=== PATIENT | male | born 1945 | race Caucasian/White ===

== ENCOUNTER → 2018-03-08 | Outpatient (CLI) | payer MEDICARE ==
[~2018-03-08] MED LIST: ALBUTEROL SULF8.5 GM INH; AMBIEN5 MG PO; AMLODIPINE BESY10 MG PO; ATORVASTATIN CA20 MG PO; BACLOFEN10 MG PO; BUMETANIDE2 MG PO; BUPROPION HCL150 MG PO; CARVEDILOL3.125 MG PO; CITALOPRAM HBR20 MG PO; COUMADIN5 MG PO; DEPO-TESTOS100 MG/ML; FENOFIBRATE145 MG PO; FLOMAX0.4 MG PO; GABAPENTIN100 MG PO; GABAPENTIN300 MG PO; HUMALOG100 UNIT/1 SC; HUMALOG100 UNITS/ SQ; HYDROCODON-ACE1 EAC9 PO; KEFLEX500 MG PO; LANTUS100 UNITS/ SC; LANTUS100 UNITS/ SQ; LASIX20 MG PO; LEVAQUIN500 MG PO; LOVASTATIN20 MG PO; METFORMIN HCL500 MG PO; MORPHINE SULFAT30 M2 PO; NEURONTIN100 MG PO; NITROGLYCERIN0.4 MG SL; ROPINIROLE HCL1 MG PO; SIMVASTATIN40 MG PO; TIZANIDINE HCL4 MG PO; TRAZODONE HCL50 MG PO; TRICOR145 MG PO; TYLENOL # 31 EA; WARFARIN SODIUM1 MG PO; WARFARIN SODIUM3 MG PO; XANAX0.25 MG PO; XARELTO10 MG PO; [UNRECOGNIZED DRUG - REMARK]
== END ==
LOC: RAD 12:31
PROVIDERS: ATTEND Family Medicine
DX: R60.9 Edema, unspecified (principal)
CPT/HCPCS: 93971

== ENCOUNTER 2019-09-18 10:43 | Inpatient (IN) | payer MEDICARE, OTHER ==
[2019-09-17] MEDS: ALBUTEROL/IPRATROPIUM 3 ML NEB NEB SCH (23:55)
[~2019-09-18] VITALS: Ht 172.7 cm; Wt 96.2 kg
--- NOTE | 2019-09-18 11:35 | NUR ---
Unable to verify home medications with patient.
[2019-09-18 11:40] LABS: BASOPHILS % 0.5 % (0.0-1.0); EOSINOPHILS # (AUTO) 0.3 (0.0-0.4); EOSINOPHILS % 4.2 % (0.0-6.0); HEMATOCRIT 40.3 % (38.2-49.6); HEMOGLOBIN 13.3 g/dL (14.0-18.0); LYMPHOCYTES # (AUTO) 1.3 (1.0-3.2); MEAN CORPUSCULAR HEMOGLOBIN 27.9 pg (28-32); MEAN CORPUSCULAR VOLUME 84.7 fL (81-99); MONOCYTES # (AUTO) 0.5 (0.2-0.8); NEUTROPHILS # (AUTO) 5.4 (2.1-6.9); NEUTROPHILS % 71.6 % (38.7-80.0); PLATELET COUNT 270 x10e3/uL (140-360); RED BLOOD COUNT 4.76 x10e6/uL (4.3-5.7); RED CELL DISTRIBUTION WIDTH 14.5 % (11.7-14.4)
[2019-09-18 11:49] LABS: ALANINE AMINOTRANSFERASE 23 IU/L (0-55); ALBUMIN 3.5 g/dL (3.5-5.0); ALBUMIN/GLOBULIN RATIO 0.9 (0.8-2.0); ALKALINE PHOSPHATASE 49 IU/L (40-150); BLOOD UREA NITROGEN 19 mg/dL (7-26); BUN/CREATININE RATIO 17 (6-25); CALCIUM 9.5 mg/dL (8.4-10.2); CARBON DIOXIDE 28 mmol/L (22-29); CHLORIDE 106 mmol/L (98-107); CREATININE, SERUM 1.11 mg/dL (0.72-1.25); EST GLOMERULAR FILTRATION RATE > 60 ML/MIN (60-); GLUCOSE 68 mg/dL (74-118); SODIUM 141 mmol/L (136-145)
[2019-09-18] MEDS ORDERED: METHYLPREDNISOLONE SOD SUCC 125 MG/2ML VIAL IV ONE (12:00)
[2019-09-18] MEDS ORDERED: ALBUTEROL/IPRATROPIUM 3 ML NEB NEB ONE (12:00)
--- NOTE | 2019-09-18 12:00 | NUR ---
blood gluocse 68 peripheral stick. ER MD aware, gave patient orange juice.
--- NOTE | 2019-09-18 12:08 | Diagnostic Imaging Report ---
Chest, 1 view, 09/18/2019. History: Chest pain and shortness of breath. Comparison: 09/11/2016. Findings: The cardiomediastinal silhouette and pulmonary vasculature are within normal limits for a portable exam. There is no focal consolidation or pleural effusion. Median sternotomy wires and left subclavian pacer are unchanged in appearance. There are no acute osseous or soft tissue abnormalities. Impression: No acute cardiopulmonary abnormality. Signed by: Wing Ashley on 09/18/2019 12:05 PM
--- NOTE | 2019-09-18 12:44 | NUR ---
repeat glucose 118.
[2019-09-18] MEDS ORDERED: SODIUM CHLORIDE FLUSH 10 ML SYR INJ PRN (13:15)
[2019-09-18] MEDS ORDERED: ASPIRIN 81 MG CHEW TAB PO ONE (13:15)
--- OUTSIDE RECORDS SUMMARY | 2019-09-18 13:22 | XMS REPORT ---
Author Author [facility] Address Unknown Phone Unavailable Care Team Providers Care Short Story Writer Name Role Phone Fabian PHILLIPS Unavailable Unavailable Problems This patient has no known problems. Allergies, Adverse Reactions, Alerts This patient has no known allergies or adverse reactions. Medications This patient has no known medications. Results Test Description Test Time Test Comments Text Results Atomic Results Result Comments CHEST SINGLE (PORTABLE) 2019-09-18 12:04:00 [place] [address] Patient Name: MARIA LUISA NAVA V MR #: [id number] : 1945 Age/Sex: 74/M Req #: [id number] Adm Physician: Ordered by: THERESE PHILLIPS MD Report #: [id number] Location: ER Room/Bed: Procedure: [id number] DX/CHEST SINGLE (PORTABLE) Exam Date: 09/18/19 Exam Time: 1149 REPORT STATUS: Signed Chest, 1 view, 09/18/2019. History: Chest pain and shortness of breath. Comparison: 09/11/2016. Findings: The cardiomediastinal silhouette and pulmonary vasculature are within normal limits for a portable exam. There is no focal consolidation or pleural effusion. Median sternotomy wires and left subclavian pacer are unchanged in appearance. There are no acute osseous or soft tissue abnormalities. Impression: No acute cardiopulmonary abnormality. Signed by: Maria Luisa Ashley on 09/18/2019 12:05 PM Dictated By: MARIA LUISA ASHLEY MD 04 Transcribed By: JUANJO on 09/18/191204 COPY TO: THERESE PHILLIPS MD
[2019-09-18] MEDS: ALBUTEROL/IPRATROPIUM 3 ML NEB NEB SCH ×2 (14:20→18:55)
--- NOTE | 2019-09-18 15:18 | NUR ---
PATIENT RECEIVED FROM ER PER STRETCHER. ALERT AND VERBALLY RESPONSIVE. ABLE TO TRANSFER SELF FROM STRETCHER TO BED. DENIED PAIN AT THIS TIME. SKIN WARM AND DRY TO TOUCH, RESPIRATION EVEN AND UNLABORED WITH O2 IN PLACE VIA N/C. ORIENTED TO SURROUNDINGS. BED IN LOWER POSITION, CALL LIGHT AT REACH. INSTRUCTED TO CALL FOR ASSISTANCE NEEDED.
[2019-09-18 15:20] VITALS: BP 171/72
[2019-09-18 15:46] VITALS: BP 171/72
[2019-09-18] MEDS ORDERED: ACETAMINOPHEN 325 MG TAB PO PRN (18:00)
[2019-09-18] MEDS ORDERED: DEXTROSE 50% SYRINGE 50 ML IV PRN (18:45)
--- NOTE | 2019-09-18 19:00 | NUR ---
Patient received awake, alert, lying quietly in bed. respirations even and unlabored. 02/2l/nc in bed. no c/o pain noted at this time. pm assessment complete. patient instructed to call for assistance when needed.
[2019-09-18 19:28] LABS: CREATINE KINASE MB 1.6 ng/mL (0-5.0)
--- NOTE | 2019-09-18 19:47 | History and Physical ---
CHIEF COMPLAINT: A 74-year-old gentleman with a history of 2-3 weeks of shortness of breath, chest pain, dizziness and heaviness in the chest. HISTORY OF PRESENT ILLNESS: Mr. Wing Pompa has a history of uncontrolled diabetes mellitus, history of coronary artery disease, history of atrial fibrillation, history of chronic pain syndrome, history of hypertension and depression, who was in usual state of health until about three weeks ago. The patient started to have shortness of breath and also congestion and wheezing. The patient did go to a local urgent care clinic, antibiotics were given. The patient did not feel better, came to the clinic, saw our nurse practitioner about one week prior to this admission. The patient was given IV antibiotics, Solu-Medrol treatment and also breathing treatments. The patient came back today with the same mono productive cough, this time with some congestion and also with some left-sided chest pain and pressure. The patient was given DuoNeb in the clinic and sent here. EKG was done in the clinic and did show some left ventricular hypertrophy with some idioventricular rhythm with this in mind, the patient was sent to the emergency room and was admitted to the hospital. Troponins were negative. Initially, treatments were given. The patient did have some audible wheezes and patient admitted for COPD exacerbation and CAD and history of coronary artery bypass. PAST MEDICAL HISTORY: History of hyperlipidemia, history of congestive heart failure, history of hypertension, history of depression, history of long-term use of insulin, history of chronic pain and history of insomnia. MEDICATIONS: He takes are albuterol sulfate q.6 hours as needed, atorvastatin 20 mg at nighttime, Bumex 2 mg once a day, propranolol 150 mg daily, carvedilol 3.125 mg twice a day, citalopram 40 mg daily, fenofibrate 145 mg daily, hydrocodone 10/325 q.6 hours, glargine 35 units twice a day, levofloxacin 500 mg daily was recently started, Xarelto 15 mg daily, Tizanidine 4 mg daily and Trazodone 100 mg at night times. PAST SURGICAL HISTORY: History of CABG, history of left hip surgery. SOCIAL HISTORY: No EtOH, no drug abuse. History of smoking in the past. ALLERGIES: NO DRUG ALLERGIES NOTED. FAMILY HISTORY: History of hypertension and COPD in the family. REVIEW OF SYSTEMS: Positive for chest pain. Positive for shortness of breath. Positive for some fatigue. No nausea, no vomiting. No diarrhea. No constipation. No rectal bleeding. No hematochezia. No hematemesis. Positive for leg cramps. PHYSICAL EXAMINATION: VITAL SIGNS: Temperature is 97.1, pulse of 62, respirations of 22, blood pressure is 171/72 with a mean of 105, pulse oximetry of 92%. The patient is on 2 L of oxygen with nasal cannula. HEENT: Normocephalic, atraumatic. The patient is slightly tachypneic at this time. CVS: S1 and S2. Tachy, irregular. LUNGS: Decreased air entry with positive for bilateral wheezing. ABDOMEN: Soft, nontender. SKIN: Normal. EXTREMITIES: No clubbing, no cyanosis, no edema. NEUROLOGIC: Alert and oriented x3. No motor deficit. Positive for sensory deficit in the lower extremities. LABORATORY VALUES: EKG shows a rate of 61, junctional rhythm, prolonged QT and also LVH by criteria. Chest x-ray shows no acute cardiopulmonary disorders. No infiltrates and no pneumothorax present. CBC showed a white count of 7.53, hemoglobin 13.3. Chemistry shows sodium of 141, potassium 4.0, BUN of 19, and creatinine of 1.11. ALT and AST normal. BNP was 157. Troponin was negative 0.022 initially ASSESSMENT: 1. Chronic obstructive pulmonary disease exacerbation. 2. Chronic congestive heart failure. 3. Coronary artery disease. 4. Hyperlipidemia. 5. Chest pain. 6. Hypoxia. 7. History of smoking. 8. Uncontrolled diabetes mellitus. 9. Chronic mild bronchitis with failed outpatient treatment. PLAN: Continue to monitor the patient. Solu-Medrol will be started at 40 mg twice a day at this time, a loading dose 125 has been given. Stricter control of blood sugars will be obtained by restarting his home medication and stricter insulin sliding scale. We will monitor his p.o. intake. DVT prophylaxis with SCDs and also Lovenox 40 mg subcu daily. We will continue his home medication. Further recommendation per clinical course. We will continue monitoring his troponin and an echocardiogram would also be done. Jarvis Carrera MD ASJ/MODL /[id number]
[2019-09-18 20:00] VITALS: BP 164/73
[2019-09-18] MEDS: HYDROCODONE/APAP 10MG-325MG TAB PO SCH (20:16)
[2019-09-18] MEDS: TRAZODONE HCL 50 MG TAB PO SCH (20:16)
[2019-09-18] MEDS: ATORVASTATIN 40 MG TAB PO SCH (20:16)
[2019-09-18] MEDS: TIZANIDINE HCL 4 MG TAB PO SCH (20:16)
[2019-09-18] MEDS ORDERED: INSULIN LISPRO 100 UNIT/1 ML 3ML VIAL SQ SCH (20:30)
[2019-09-18] MEDS: INSULIN GLARGINE 100 UNITS/ML VIAL SQ SCH (20:35)
[2019-09-18] MEDS: INSULIN LISPRO 100 UNIT/1 ML 3ML VIAL SQ SCH (20:35)
--- NOTE | 2019-09-18 20:35 | NUR ---
wrong time----2034 Addendum: 09/19/19 at 0032 by Antonia Macedo RN error
[2019-09-18] MEDS ORDERED: ATORVASTATIN 20 MG TAB PO SCH (21:00)
[2019-09-18 21:17] VITALS: BP 164/73
--- NOTE | 2019-09-18 21:41 | NUR ---
blood sugar recheck 387.
--- NOTE | 2019-09-18 23:35 | NUR ---
blood sugar 538. call placed to Dr.John shaffer: blood sugar/sliding scale. patient medicated with humalog 12 units per sliding scale with an extra 8 units humalog. lantus 35 units sc also given at this time. will continue to to monitor. Addendum: 09/19/19 at 0033 by Antonia Macedo RN error--wrong time---2034
--- NOTE | 2019-09-18 23:53 | NUR ---
blood sugar 262.
[2019-09-19] VITALS (8 sets, daily range): BP systolic 116–167; BP diastolic 56–72
[2019-09-19] MEDS: MORPHINE SULFATE 2 MG/ML SYR 1ML IV PRN ×4 (03:10→22:55)
--- NOTE | 2019-09-19 03:10 | NUR ---
patient medicated with morphine 2mg ivp for c/o generalized pain 12/03 per patients request. 2nd cardiac markers drawn at this time and sent to lab.
[2019-09-19] MEDS: ALBUTEROL/IPRATROPIUM 3 ML NEB NEB SCH ×6 (03:40→23:30)
[2019-09-19 03:50] LABS: CREATINE KINASE MB 1.2 ng/mL (0-5.0)
[2019-09-19 05:42] LABS: BASOPHILS % 0.1 % (0.0-1.0); HEMATOCRIT 35.1 % (38.2-49.6); HEMOGLOBIN 11.5 g/dL (14.0-18.0); LYMPHOCYTES # (AUTO) 0.9 (1.0-3.2); LYMPHOCYTES % 10.6 % (18.0-39.1); MEAN CORPUSCULAR HEMOGLOBIN 27.6 pg (28-32); MEAN CORPUSCULAR HGB CONC 32.8 g/dL (31-35); MEAN CORPUSCULAR VOLUME 84.2 fL (81-99); MONOCYTES # (AUTO) 0.4 (0.2-0.8); NEUTROPHILS # (AUTO) 7.4 (2.1-6.9); NEUTROPHILS % 84.6 % (38.7-80.0); PLATELET COUNT 222 x10e3/uL (140-360); RED BLOOD COUNT 4.17 x10e6/uL (4.3-5.7)
[2019-09-19 06:03] LABS: ANION GAP 10.5 mmol/L (8-16); BLOOD UREA NITROGEN 28 mg/dL (7-26); BUN/CREATININE RATIO 24 (6-25); CALCIUM 8.6 mg/dL (8.4-10.2); CARBON DIOXIDE 24 mmol/L (22-29); CHLORIDE 104 mmol/L (98-107); CREATININE, SERUM 1.17 mg/dL (0.72-1.25); EST GLOMERULAR FILTRATION RATE > 60 ML/MIN (60-); GLUCOSE 320 mg/dL (74-118); POTASSIUM 4.5 mmol/L (3.5-5.1); SODIUM 134 mmol/L (136-145)
--- NOTE | 2019-09-19 06:09 | Diagnostic Imaging Report ---
EXAMINATION: CHEST SINGLE (PORTABLE) INDICATION: ^SOB ^[id number] ^0510 COMPARISON: Chest x-ray 09/18/2019 FINDINGS: TUBES and LINES: Left chest wall cardiac device with lead in the right ventricle. LUNGS: Normal lung volumes. Prominent pulmonary interstitial lung markings. Prominent pulmonary vasculature. PLEURA: No pleural effusion or pneumothorax. HEART AND MEDIASTINUM: Cardiac size is mildly enlarged. BONES AND SOFT TISSUES: No acute osseous lesion. Soft tissues are unremarkable. Sternotomy wires intact. UPPER ABDOMEN: No free air under the diaphragm. IMPRESSION: Mild cardiomegaly and pulmonary vascular congestion, possible mild pulmonary interstitial edema. Superimposed pneumonia is possible. Signed by: Ge Toribio DO on 09/19/2019 6:05 AM
[2019-09-19 06:32] LABS: CREATINE KINASE MB 1.3 ng/mL (0-5.0)
--- NOTE | 2019-09-19 06:40 | NUR ---
Bedside shift report received from night nurse. Patient is resting in bed. No acute distress noted. Call light within reach.
[2019-09-19 06:45] LABS: CHOL/HDL RATIO 3.5 (3.9-4.7)
[2019-09-19] MEDS: CITALOPRAM HYDROBROMIDE 20 MG TAB PO SCH (08:20)
[2019-09-19] MEDS: ASPIRIN 81 MG ENTERIC COATED PO SCH (08:20)
[2019-09-19] MEDS: CARVEDILOL 3.125 MG TAB PO SCH ×2 (08:20→16:48)
[2019-09-19] MEDS: BUMETANIDE 1 MG TAB PO SCH ×2 (08:20→16:47)
[2019-09-19] MEDS: HYDROCODONE/APAP 10MG-325MG TAB PO SCH ×3 (08:21→21:00)
[2019-09-19] MEDS: BACLOFEN 10 MG TAB PO SCH ×2 (08:21→16:48)
[2019-09-19] MEDS: FENOFIBRATE 145 MG TAB PO SCH (08:22)
[2019-09-19] MEDS: BUPROPION HCL SR 150 MG TAB PO SCH (08:22)
[2019-09-19] MEDS: RIVAROXABAN 20 MG TABLET PO SCH (08:22)
[2019-09-19] MEDS: INSULIN LISPRO 100 UNIT/1 ML 3ML VIAL SQ SCH ×4 (08:22→12:03)
[2019-09-19] MEDS: TIZANIDINE HCL 4 MG TAB PO SCH ×3 (08:22→21:00)
[2019-09-19] MEDS ORDERED: NON-FORMULARY MEDICATION (Bumetanide 2 MG) PO SCH (09:00)
[2019-09-19] MEDS ORDERED: RIVAROXABAN 10 MG TABLET PO SCH (09:00)
--- NOTE | 2019-09-19 11:05 | NUR ---
ASSESSMENT: No concerns Pt didn't express spiritual or emotional concerns. Intervention: Provided hospitality and information on how to reach watershed tender, if needed. Outcome: No need to follow at this time. RMEI MCKEON Hydrological Technical Officer Spiritual Care Department O: [phone]
--- NOTE | 2019-09-19 14:40 | Progress Note ---
DATE: SUBJECTIVE: A 74-year-old male, who came in with COPD exacerbation, chest pain, and shortness of breath. The patient is feeling little bit better. Sugars have been running in the 200s to 300 range. Sliding scale has been instituted and also the patient's glargine has been increased. Currently, feeling short of breath, but much better than yesterday. Albuterol/Atrovent treatments every 4 hours has been instituted. No complaints other than that. OBJECTIVE: VITAL SIGNS: Temperature is 98.4, pulse 60, respirations 16 which got better, blood pressure is 119/66, and pulse oximetry of 98%. Tachypnea got better. HEENT: Normocephalic and atraumatic. Pupils are reactive to light and accommodation. CVS: S1 and S2, tachycardic. ABDOMEN: Nontender and nondistended. Decreased air entry into all lung ybarra. EXTREMITIES: No clubbing. No cyanosis. Trace edema. LABORATORY VALUES: White count is 8.70, hemoglobin of 11.5, and hematocrit 35.1. Chemistry shows sodium of 134, potassium 4.5, BUN of 28, creatinine of 1.17, and glucose is 320. LDL was 67. Troponins have been less than 0.004. IMAGING STUDIES: Chest x-ray done today, showed mild cardiomegaly and pulmonary vascular congestion. Possible mild pulmonary interstitial edema, superimposed pneumonia is possible. ASSESSMENT: Mr. Wing Pompa with: 1. Chronic obstructive pulmonary disease exacerbation. 2. Coronary artery disease. 3. Hypoglycemia. 4. Chest pain, ruled out. PLAN: Continue with IV Solu-Medrol, albuterol/Atrovent treatment, and currently also on Xarelto for his atrial fibrillation. Further recommendation per clinical course. DISPOSITION: Possible discharge in 1 to 2 days depending on the progression and betterment of shortness of breath. MD CHIKA Cervantes/MODL /[id number]
--- NOTE | 2019-09-19 15:05 | NUR ---
Notified Dr. Carrera of patient's BG of 24 and administered 50 mL of Dextrose. Per MD, discontinue sliding scale and decrease scheduled humalog to 10 units with meals starting tomorrow morning. Will continue to monitor.
--- NOTE | 2019-09-19 15:20 | NUR ---
Re-assessed BG and is 218 now, will continue to monitor.
[2019-09-19] MEDS: INSULIN GLARGINE 100 UNITS/ML VIAL SQ SCH (16:48)
--- NOTE | 2019-09-19 18:50 | NUR ---
Bedside shift report given to oncoming nurse. Patient is resting in bed. No acute distress noted at this time. Call light within reach. Bed in the lowest position.
--- NOTE | 2019-09-19 19:00 | NUR ---
patient received awake, alert, lying quietly in bed. no c/o pain noted. pm assessment complete. patient instructed to call for assistance when needed.
[2019-09-19] MEDS: TRAZODONE HCL 50 MG TAB PO SCH (21:00)
[2019-09-19] MEDS: ATORVASTATIN 40 MG TAB PO SCH (21:00)
[2019-09-20] VITALS (7 sets, daily range): BP systolic 107–149; BP diastolic 51–73
[2019-09-20] MEDS: ALBUTEROL/IPRATROPIUM 3 ML NEB NEB SCH ×6 (03:30→23:05)
[2019-09-20] MEDS: MORPHINE SULFATE 2 MG/ML SYR 1ML IV PRN ×3 (05:05→17:00)
[2019-09-20 05:30] LABS: BASOPHILS % 0.3 % (0.0-1.0); EOSINOPHILS # (AUTO) 0.3 (0.0-0.4); EOSINOPHILS % 3.4 % (0.0-6.0); HEMATOCRIT 38.3 % (38.2-49.6); HEMOGLOBIN 12.7 g/dL (14.0-18.0); LYMPHOCYTES # (AUTO) 1.7 (1.0-3.2); LYMPHOCYTES % 23.3 % (18.0-39.1); MEAN CORPUSCULAR HEMOGLOBIN 27.8 pg (28-32); MEAN CORPUSCULAR HGB CONC 33.2 g/dL (31-35); MEAN CORPUSCULAR VOLUME 83.8 fL (81-99); MONOCYTES # (AUTO) 0.5 (0.2-0.8); MONOCYTES % 6.4 % (4.4-11.3); NEUTROPHILS # (AUTO) 4.8 (2.1-6.9); NEUTROPHILS % 66.2 % (38.7-80.0); PLATELET COUNT 254 x10e3/uL (140-360); RED BLOOD COUNT 4.57 x10e6/uL (4.3-5.7); RED CELL DISTRIBUTION WIDTH 14.2 % (11.7-14.4)
[2019-09-20 05:51] LABS: ANION GAP 12.9 mmol/L (8-16); CALCIUM 8.7 mg/dL (8.4-10.2); CREATININE, SERUM 1.28 mg/dL (0.72-1.25); POTASSIUM 3.9 mmol/L (3.5-5.1)
--- NOTE | 2019-09-20 07:00 | NUR ---
The pt. was received from the off-going nurse in stable condition and denies pain or discomfort at this time.
[2019-09-20] MEDS: HYDROCODONE/APAP 10MG-325MG TAB PO SCH ×3 (08:59→20:13)
[2019-09-20] MEDS: CARVEDILOL 3.125 MG TAB PO SCH ×2 (08:59→17:00)
[2019-09-20] MEDS: FENOFIBRATE 145 MG TAB PO SCH (08:59)
[2019-09-20] MEDS: BACLOFEN 10 MG TAB PO SCH ×2 (08:59→17:00)
[2019-09-20] MEDS: CITALOPRAM HYDROBROMIDE 20 MG TAB PO SCH (08:59)
[2019-09-20] MEDS: BUMETANIDE 1 MG TAB PO SCH ×2 (08:59→17:00)
[2019-09-20] MEDS: ASPIRIN 81 MG ENTERIC COATED PO SCH (08:59)
[2019-09-20] MEDS: RIVAROXABAN 20 MG TABLET PO SCH (09:00)
[2019-09-20] MEDS: BUPROPION HCL SR 150 MG TAB PO SCH (09:00)
[2019-09-20] MEDS: TIZANIDINE HCL 4 MG TAB PO SCH ×3 (09:00→20:14)
[2019-09-20] MEDS: INSULIN LISPRO 100 UNIT/1 ML 3ML VIAL SQ SCH ×3 (09:04→16:30)
[2019-09-20] MEDS: INSULIN GLARGINE 100 UNITS/ML VIAL SQ SCH ×2 (09:05→17:00)
--- NOTE | 2019-09-20 11:46 | NUR ---
IMM SIGNED AND ON CHART COPY LEFT WITH PATIENT GAVE CARD FOR QUESTIONS AND OR CONCERNS.
--- NOTE | 2019-09-20 18:50 | Progress Note ---
DATE: SUBJECTIVE: The patient is a 74-year-old male with a history of COPD, came in with COPD exacerbation. The patient is still short of breath, hypoxic when walking to the bathroom short distances and needs oxygen while walking. No chest pain. With some congestion and also productive sputum. No nausea, vomiting, or diarrhea. No chest pain at this time. OBJECTIVE: VITAL SIGNS: Temperature is 96.6, pulse of 60, respirations of 20, blood pressure is 120/56, and pulse oximetry of 95% on 2 liters of oxygen. HEENT: Normocephalic and atraumatic. Pupils reactive to light and accommodation. CVS: S1 and S2 normal. Regular rate and rhythm. ABDOMEN: Nontender and nondistended. LUNGS: Decreased air entry, audible wheezes. EXTREMITIES: No clubbing, no cyanosis, and no edema. LABORATORY VALUES: White count 7.31, hemoglobin of 12.7, and hematocrit of 38.8. Chemistries, BUN of 32 and creatinine of 1.28. ASSESSMENT: Mr. Wing Pompa with: 1. Chronic obstructive pulmonary disease exacerbation. 2. Coronary artery disease. 3. Chest pain. 4. Hypoglycemia. 5. Hypoxia. 6. Acute on chronic renal failure. PLAN: Continue with IV Solu-Medrol, albuterol/Atrovent treatment. We will add Mucomyst to the profile. Continue with current management. Further recommendation per clinical course. We will continue to monitor the patient and pain management with morphine and [place]. Disposition, discharge plan in 1-2 days depending on progression. MD CHIKA Cervantes/MODL /[id number]
[2019-09-20] MEDS: ACETYLCYSTEINE 200 MG/ML 4ML VIAL INH SCH (19:20)
--- NOTE | 2019-09-20 20:00 | NUR ---
Received change of shift report from AM nurse. Walking rounds completed.
[2019-09-20] MEDS: ATORVASTATIN 40 MG TAB PO SCH (20:13)
[2019-09-20] MEDS: TRAZODONE HCL 50 MG TAB PO SCH (20:13)
--- NOTE | 2019-09-20 22:03 | NUR ---
[facility] med[facility]. for pain =6 gen. Continue monitor.
[2019-09-21] VITALS (8 sets, daily range): BP systolic 114–164; BP diastolic 58–77
[2019-09-21] MEDS: ALBUTEROL/IPRATROPIUM 3 ML NEB NEB SCH ×6 (03:10→23:45)
[2019-09-21] MEDS: ACETYLCYSTEINE 200 MG/ML 4ML VIAL INH SCH ×4 (06:15→20:55)
[2019-09-21] MEDS: MORPHINE SULFATE 2 MG/ML SYR 1ML IV PRN ×3 (06:21→20:01)
--- NOTE | 2019-09-21 07:51 | Progress Note ---
DATE: SUBJECTIVE: A 74-year-old gentleman, who comes in with COPD exacerbation. The patient continues to still have pain on ambulation in the chest and also shortness of breath on exertion. The patient continues to have some nausea, otherwise doing well. The patient's blood sugars had one drop, currently stable. No diarrhea. No constipation. OBJECTIVE: VITAL SIGNS: 96.4 of temperature, pulse of 63, respirations of 18, blood pressure is 115/61, and 95% on 2 L of oxygen. HEENT: Normocephalic and atraumatic. Pupils reactive to light and accommodation. CVS: S1 and S2 normal. Regular rate and rhythm. LUNGS: Decreased air entry with multiple rhonchi and wheezes present. ABDOMEN: Nontender and nondistended. EXTREMITIES: No clubbing, no cyanosis, no edema. LABORATORY VALUES: From yesterday, white count is normal. Chemistries were normal too. Creatinine is 1.28. IMAGING STUDIES: Chest x-ray done on the showed mild cardiomegaly with possible superimposed pneumonia. ASSESSMENT: Mr. Wing Pompa with chronic obstructive pulmonary disease exacerbation. The patient is currently still on the steroids, which will keep him on steroids, morphine sulfate for pain medication. For hypertension, hyperlipidemia, and his atrial fibrillation, continue with anticoagulation, statins and also blood pressure medication. PLAN: Continue with current medication, add doxycycline to the picture and restart steroids at 20 mg and we will continue to monitor the patient. Further recommendation per clinical course. Possible discharge in 1 to 2 days depending on his oxygen and also O2 home supplementation will be ordered for if needed. MD CHIKA Cervantes/MODL /[id number]
--- NOTE | 2019-09-21 09:11 | Diagnostic Imaging Report ---
EXAMINATION: CHEST 2 VIEWS INDICATION: ^copd ^[id number] ^0820 COMPARISON: 09/18/2019 FINDINGS: PA and lateral views TUBES and LINES: Stable single lead pacemaker overlying the right ventricle. LUNGS: Lungs are well inflated. Improved central pulmonary vascular congestion. Bibasilar atelectasis, unchanged. No new consolidations. PLEURA: Trace bilateral pleural effusions. No pneumothorax. HEART AND MEDIASTINUM: Stable mild enlargement of the cardiac silhouette. BONES AND SOFT TISSUES: Intact median sternotomy wires. No acute osseous lesion. Soft tissues are unremarkable. UPPER ABDOMEN: No free air under the diaphragm. IMPRESSION: Improved central pulmonary vascular congestion. No new consolidations. Signed by: Dr. Mita Calvert M.D. on 09/21/2019 9:07 AM
[2019-09-21] MEDS: METHYLPREDNISOLONE SOD SUCC 40 MG/ML VIAL 1ML IV SCH ×2 (09:20→20:02)
[2019-09-21] MEDS: CITALOPRAM HYDROBROMIDE 20 MG TAB PO SCH (09:20)
[2019-09-21] MEDS: ASPIRIN 81 MG ENTERIC COATED PO SCH (09:20)
[2019-09-21] MEDS: BUMETANIDE 1 MG TAB PO SCH ×2 (09:20→17:39)
[2019-09-21] MEDS: BACLOFEN 10 MG TAB PO SCH ×2 (09:21→17:40)
[2019-09-21] MEDS: CARVEDILOL 3.125 MG TAB PO SCH ×2 (09:21→17:40)
[2019-09-21] MEDS: HYDROCODONE/APAP 10MG-325MG TAB PO SCH ×3 (09:21→22:00)
[2019-09-21] MEDS: TIZANIDINE HCL 4 MG TAB PO SCH ×3 (09:22→20:02)
[2019-09-21] MEDS: RIVAROXABAN 20 MG TABLET PO SCH (09:22)
[2019-09-21] MEDS: FENOFIBRATE 145 MG TAB PO SCH (09:22)
[2019-09-21] MEDS: BUPROPION HCL SR 150 MG TAB PO SCH (09:22)
[2019-09-21] MEDS: INSULIN GLARGINE 100 UNITS/ML VIAL SQ SCH ×2 (09:26→17:00)
[2019-09-21] MEDS: INSULIN LISPRO 100 UNIT/1 ML 3ML VIAL SQ SCH ×3 (09:29→16:30)
[2019-09-21] MEDS: DOXYCYCLINE HYCLATE 100 MG in SODIUM CHLORIDE 0.9% 100 ML 100 ML IV SCH (11:00)
[2019-09-21] MEDS ORDERED: SODIUM CHLORIDE 0.9% 250ML 250 ML ONE (11:11)
--- NOTE | 2019-09-21 19:54 | NUR ---
Received change of shift report from AM nurse. Walking rounds completed.
[2019-09-21] MEDS: TRAZODONE HCL 50 MG TAB PO SCH (20:02)
[2019-09-21] MEDS: ATORVASTATIN 40 MG TAB PO SCH (20:02)
[2019-09-22] VITALS (7 sets, daily range): BP systolic 117–184; BP diastolic 59–77
[2019-09-22] MEDS: ALBUTEROL/IPRATROPIUM 3 ML NEB NEB SCH ×6 (04:10→22:55)
[2019-09-22 05:55] LABS: BASOPHILS % 0.1 % (0.0-1.0); HEMOGLOBIN 12.8 g/dL (14.0-18.0); LYMPHOCYTES % 10.7 % (18.0-39.1); MEAN CORPUSCULAR HEMOGLOBIN 27.9 pg (28-32); MEAN CORPUSCULAR HGB CONC 33.7 g/dL (31-35); MEAN CORPUSCULAR VOLUME 82.8 fL (81-99); MONOCYTES # (AUTO) 0.3 (0.2-0.8); MONOCYTES % 2.8 % (4.4-11.3); NEUTROPHILS # (AUTO) 7.9 (2.1-6.9); NEUTROPHILS % 85.1 % (38.7-80.0); PLATELET COUNT 249 x10e3/uL (140-360); RED BLOOD COUNT 4.59 x10e6/uL (4.3-5.7); RED CELL DISTRIBUTION WIDTH 14.3 % (11.7-14.4)
[2019-09-22 06:15] LABS: ANION GAP 13.5 mmol/L (8-16); CALCIUM 9.3 mg/dL (8.4-10.2); CREATININE, SERUM 1.66 mg/dL (0.72-1.25); POTASSIUM 4.5 mmol/L (3.5-5.1)
[2019-09-22] MEDS: ACETYLCYSTEINE 200 MG/ML 4ML VIAL INH SCH ×4 (06:36→19:20)
[2019-09-22] MEDS: MORPHINE SULFATE 2 MG/ML SYR 1ML IV PRN ×3 (07:48→20:20)
[2019-09-22] MEDS: DOXYCYCLINE HYCLATE 100 MG in SODIUM CHLORIDE 0.9% 100 ML 100 ML IV SCH (08:13)
[2019-09-22] MEDS: BUMETANIDE 1 MG TAB PO SCH ×2 (08:13→16:56)
[2019-09-22] MEDS: METHYLPREDNISOLONE SOD SUCC 40 MG/ML VIAL 1ML IV SCH ×2 (08:13→20:31)
[2019-09-22] MEDS: ASPIRIN 81 MG ENTERIC COATED PO SCH (08:13)
[2019-09-22] MEDS: CITALOPRAM HYDROBROMIDE 20 MG TAB PO SCH (08:14)
[2019-09-22] MEDS: FENOFIBRATE 145 MG TAB PO SCH (08:14)
[2019-09-22] MEDS: BUPROPION HCL SR 150 MG TAB PO SCH (08:14)
[2019-09-22] MEDS: CARVEDILOL 3.125 MG TAB PO SCH ×2 (08:14→16:56)
[2019-09-22] MEDS: BACLOFEN 10 MG TAB PO SCH ×2 (08:14→16:56)
[2019-09-22] MEDS: RIVAROXABAN 20 MG TABLET PO SCH (08:14)
[2019-09-22] MEDS: INSULIN GLARGINE 100 UNITS/ML VIAL SQ SCH ×2 (08:15→16:57)
[2019-09-22] MEDS: INSULIN LISPRO 100 UNIT/1 ML 3ML VIAL SQ SCH ×3 (08:15→16:55)
[2019-09-22] MEDS: TIZANIDINE HCL 4 MG TAB PO SCH ×3 (08:15→21:55)
--- NOTE | 2019-09-22 08:29 | Progress Note ---
DATE: SUBJECTIVE: The patient is a 74-year-old male, who comes in with COPD exacerbation yesterday. The patient was started back on steroids and also IV antibiotics, still about the same, cough and congested, short of breath on exertion and also walking to the bathroom. On O2 for chronic acute hypoxia. OBJECTIVE: VITAL SIGNS: Temperature is 96.9, afebrile, pulse of 96, respirations of 20, blood pressure is 150/68, pulse oximetry of 97%. HEENT: Normocephalic and atraumatic. Pupils are reactive. CVS: S1 and S2, tachy. ABDOMEN: Nontender, nondistended. LUNGS: Positive for bilateral congestion with rhonchi. EXTREMITIES: Trace edema. LABORATORY VALUES: Today's white count is 9.29, hemoglobin of 12.8, hematocrit of 38. Chemistries; glucose is 428, BUN is 48, creatinine of 1.66. IMAGING STUDIES: Chest x-ray done yesterday shows improved central pulmonary venous congestion. No new consolidation. ASSESSMENT: Mr. Wing Pompa with: 1. Chronic obstructive pulmonary disease with exacerbation. Plan will be continue on steroids and continue antibiotics. 2. Hypertension. Continue antihypertensive. 3. Hyperlipidemia, on statin. 4. Chronic hypoxia. Continue on O2. We will maintain his O2 at 1 to 2 L. We will monitor him for home O2. 5. For his chronic obstructive pulmonary disease, we will continue with steroids and antibiotics. Further recommendations look in the chart. 6. For diabetes, we will continue with the sliding scale and also with insulin. MD CHIKA Cervantes/MODL /[id number]
[2019-09-22] MEDS: HYDROCODONE/APAP 10MG-325MG TAB PO SCH ×3 (10:00→21:55)
--- NOTE | 2019-09-22 16:00 | NUR ---
Notified Dr. Carrera of elevated BS and received orders to start humalog 20 units TID with meals only while pt is getting steroids.
--- NOTE | 2019-09-22 20:05 | NUR ---
Notified Dr Carrera regarding FSBS 418. Patient received humalog 20 units and lantus 35 units at 1655. New order for Humalog 5 units subq x1.
[2019-09-22] MEDS ORDERED: INSULIN LISPRO 100 UNIT/1 ML 3ML VIAL SQ ONE (20:15)
[2019-09-22] MEDS: TRAZODONE HCL 50 MG TAB PO SCH (20:31)
[2019-09-22] MEDS: ATORVASTATIN 40 MG TAB PO SCH (20:31)
[2019-09-23] VITALS (8 sets, daily range): BP systolic 113–152; BP diastolic 57–69
[2019-09-23] MEDS: MORPHINE SULFATE 2 MG/ML SYR 1ML IV PRN ×4 (02:40→23:30)
[2019-09-23] MEDS: ALBUTEROL/IPRATROPIUM 3 ML NEB NEB SCH ×6 (03:07→23:30)
--- NOTE | 2019-09-23 06:41 | NUR ---
Dr Carrera on unit, New orders for home 02 eval, follow up on echo. Once both complete patient will be okay to discharge.
--- NOTE | 2019-09-23 07:00 | NUR ---
Received bedside shift report from off going nurse. Patient is stable, no distress noted. Complained of back pain 12/03 scheduled [place] was given @ 0900. Tele # [address] Bed in lowest position and locked. Call gonzalez within reach.
--- NOTE | 2019-09-23 07:32 | NUR ---
Bedside report and rounding completed with oncoming nurse. Patient in bed with call light within reach. Bed locked and in lowest position. No issues or concerns noted.
--- NOTE | 2019-09-23 07:38 | Progress Note ---
DATE: SUBJECTIVE: The patient is a 74-year-old gentleman with a history of COPD, history of coronary artery disease and history of uncontrolled diabetes, continues to have shortness of breath on walking to and fro from the bathroom. Today, we will do a home O2 protocol. The patient also has significant congestion despite steroids and also Mucomyst. Medicines reviewed. OBJECTIVE: VITAL SIGNS: Temperature is 95.6, pulse of 60, respirations of 18, blood pressure is 113/62, pulse oximetry of 99% on 2 L of oxygen. HEENT: Normocephalic and atraumatic. Pupils are reactive to light and accommodation. CVS: S1 and S2 normal. Regular rate and rhythm. ABDOMEN: Nontender and nondistended. LUNGS: Positive for rhonchi bilaterally. EXTREMITIES: No edema. The patient is on anticoagulation for his atrial fibrillation. LABORATORY VALUES: Yesterday's white count is 9.9. Chemistry, glucose is 428 yesterday with a BUN of 48 and creatinine of 1.66. ASSESSMENT: Mr. Wing Pompa with: 1. Chronic obstructive pulmonary disease exacerbation. 2. Hypertension. 3. Coronary artery disease. 4. Hyperlipidemia. 5. Hypoglycemia. 6. Hypoxia and chronic respiratory distress. PLAN: Continue with current medications. The patient is clinically improved a bit, can be discharged home on oral steroids and also on home O2 if needed. Echocardiogram was ordered on the , for some reason it was canceled. We will go and reorder it just to ascertain his cardiac functions. Further recommendation per clinical course and also depending on the home O2 eval and also echocardiogram eval. Possible discharge today or tomorrow. MD CHIKA Cervantes/ADAIRL /[id number]
[2019-09-23] MEDS: ACETYLCYSTEINE 200 MG/ML 4ML VIAL INH SCH ×4 (08:00→19:20)
[2019-09-23] MEDS: CITALOPRAM HYDROBROMIDE 20 MG TAB PO SCH (09:08)
[2019-09-23] MEDS: BUMETANIDE 1 MG TAB PO SCH ×2 (09:08→17:20)
[2019-09-23] MEDS: METHYLPREDNISOLONE SOD SUCC 40 MG/ML VIAL 1ML IV SCH ×2 (09:08→21:18)
[2019-09-23] MEDS: ASPIRIN 81 MG ENTERIC COATED PO SCH (09:08)
[2019-09-23] MEDS: RIVAROXABAN 20 MG TABLET PO SCH (09:09)
[2019-09-23] MEDS: FENOFIBRATE 145 MG TAB PO SCH (09:09)
[2019-09-23] MEDS: CARVEDILOL 3.125 MG TAB PO SCH ×2 (09:09→17:28)
[2019-09-23] MEDS: BACLOFEN 10 MG TAB PO SCH ×2 (09:09→17:28)
[2019-09-23] MEDS: HYDROCODONE/APAP 10MG-325MG TAB PO SCH ×3 (09:09→21:18)
[2019-09-23] MEDS: BUPROPION HCL SR 150 MG TAB PO SCH (09:09)
[2019-09-23] MEDS: TIZANIDINE HCL 4 MG TAB PO SCH ×3 (09:10→21:18)
[2019-09-23] MEDS: INSULIN LISPRO 100 UNIT/1 ML 3ML VIAL SQ SCH ×3 (09:11→17:16)
[2019-09-23] MEDS: INSULIN GLARGINE 100 UNITS/ML VIAL SQ SCH ×2 (09:12→17:29)
[2019-09-23] MEDS: DOXYCYCLINE HYCLATE 100 MG in SODIUM CHLORIDE 0.9% 100 ML 100 ML IV SCH (11:07)
--- NOTE | 2019-09-23 19:27 | NUR ---
Bedside report and rounding completed with oncoming nurse. Patient in stable condition, no s/s of distress noted. Patient in bed with call light within reach. Bed locked and in lowest position. No issues or concerns noted.
--- NOTE | 2019-09-23 20:00 | NUR ---
Spoke with Dr Carrera regarding echo complete and results given for EF and patient did not qualify for home sat 93%. Will see patient in morning for discharge.
--- NOTE | 2019-09-23 20:34 | NUR ---
Spoke with Dr Carrera regarding FSBS 312. New order: give humalog 8 units sub Q x1. Will continue to monitor.
[2019-09-23] MEDS ORDERED: INSULIN LISPRO 100 UNIT/1 ML 3ML VIAL SQ SCH (20:45)
[2019-09-23] MEDS: TRAZODONE HCL 50 MG TAB PO SCH (21:18)
[2019-09-23] MEDS: ATORVASTATIN 40 MG TAB PO SCH (21:18)
[2019-09-24] VITALS: BP 122/57
[2019-09-24] MEDS: ALBUTEROL/IPRATROPIUM 3 ML NEB NEB SCH ×2 (03:15→07:49)
[2019-09-24 04:00] VITALS: BP 159/70
--- NOTE | 2019-09-24 06:54 | Progress Note ---
DATE: SUBJECTIVE: The patient is a 74-year-old male, who came with COPD with exacerbation. The patient also has history of CHF, CKD, and history of uncontrolled diabetes mellitus. The patient is currently feeling better. Had a home evaluation for O2. The patient did not need oxygen. Physical therapy has been ongoing and the patient is doing well. Shortness of breath is better. The patient can be discharged home today. OBJECTIVE: VITAL SIGNS: Today, temperature is 96.6, pulse of 73, respirations of 18, blood pressure is 159/70, pulse oximetry of 94% on 2 L of oxygen. HEENT: Normocephalic and atraumatic. Pupils are reactive to light and accommodation. CVS: S1 and S2. Regular. ABDOMEN: Nontender and nondistended. LUNGS: Positive for few inspiratory wheezes, but much better. EXTREMITIES: No clubbing, no cyanosis, no edema. LABORATORY DATA: Chemistries, blood sugars are running in 300s because of the steroid. IMAGING STUDIES: Done on the , chest x-ray did not show pneumonia, slight congestion and changes of mild CHF. MICROBIOLOGY: None done. ASSESSMENT: Mr. Wing Pompa with, 1. Chronic obstructive pulmonary disease exacerbation. 2. Hypertension. 3. Coronary artery disease. 4. Hyperlipidemia. 5. Hyperglycemia. 6. Hypoxia with chronic respiratory failure. PLAN: Continue current medication. The patient can be discharged home on doxycycline 100 mg twice a day for 5 days and also steroids for 5 days. Echocardiogram was normal. EF was 56%. The patient has also chronic diastolic dysfunction. No O2 needed. The patient can be discharged and follow up with me in about one weeks time. MD CHIKA Cervantes/MODL /[id number]
--- NOTE | 2019-09-24 07:00 | NUR ---
Received bedside shift report from off going nurse. Patient is stable, no sign or symptoms of distress noted. Complained of back pain 12/03 will given scheduled [place]. Tele # [address] Bed in lowest position and locked. Call gonzalez within reach.
[2019-09-24 07:40] VITALS: BP 120/57
[2019-09-24] MEDS: ACETYLCYSTEINE 200 MG/ML 4ML VIAL INH SCH (07:49)
[2019-09-24 08:11] VITALS: BP 120/57
[2019-09-24] MEDS: METHYLPREDNISOLONE SOD SUCC 40 MG/ML VIAL 1ML IV SCH (08:43)
[2019-09-24] MEDS: DOXYCYCLINE HYCLATE 100 MG in SODIUM CHLORIDE 0.9% 100 ML 100 ML IV SCH (08:43)
[2019-09-24] MEDS: ASPIRIN 81 MG ENTERIC COATED PO SCH (08:44)
[2019-09-24] MEDS: BUMETANIDE 1 MG TAB PO SCH (08:44)
[2019-09-24] MEDS: BACLOFEN 10 MG TAB PO SCH (08:45)
[2019-09-24] MEDS: CITALOPRAM HYDROBROMIDE 20 MG TAB PO SCH (08:45)
[2019-09-24] MEDS: CARVEDILOL 3.125 MG TAB PO SCH (08:45)
[2019-09-24] MEDS: FENOFIBRATE 145 MG TAB PO SCH (08:46)
[2019-09-24] MEDS: BUPROPION HCL SR 150 MG TAB PO SCH (08:46)
[2019-09-24] MEDS: RIVAROXABAN 20 MG TABLET PO SCH (08:46)
[2019-09-24] MEDS: HYDROCODONE/APAP 10MG-325MG TAB PO SCH (08:46)
[2019-09-24] MEDS: TIZANIDINE HCL 4 MG TAB PO SCH (08:47)
[2019-09-24] MEDS: INSULIN GLARGINE 100 UNITS/ML VIAL SQ SCH (08:51)
[2019-09-24] MEDS: INSULIN LISPRO 100 UNIT/1 ML 3ML VIAL SQ SCH (08:51)
[2019-09-24] MEDS ORDERED: DOXYCYCLINE HY100 MG PO (10:00)
[2019-09-24] MEDS ORDERED: PREDNISONE20 MG PO (10:01)
--- NOTE | 2019-09-24 10:15 | NUR ---
Called and spoke with Dr. Carrera to verify that the patient can drive himself home when leaving the facility. Dr. Carrera gave an okay.
--- NOTE | 2019-09-24 11:11 | NUR ---
Patient Discharged home- Patient off the unit @ 1100 via wheelchair accompanied by PCT to personal vehicle. Patient in stable condition, No s/s of distress noted. No pain noted. IV access removed with tip intact. All personal belongings taken with patient. Discharge teaching, instruction, and medication list given to the patient. Verbalized understanding by patient.
== END 2019-09-24 11:00 | disposition home or self-care (01) | DRG 190 ==
LOC: ER 10:43 → ERHOLD 13:18 → MED/SURG3 15:04
PROVIDERS: ADMIT Family Medicine; ATTEND Family Medicine
DX: J44.1 Chronic obstructive pulmonary disease with (acute) exacerbation (principal); J96.21 Acute and chronic respiratory failure with hypoxia; N17.9 Acute kidney failure, unspecified; I13.0 Hypertensive heart and chronic kidney disease with heart failure and stage 1 through stage 4 chronic kidney disease, or unspecified chronic kidney disease; I50.32 Chronic diastolic (congestive) heart failure; I25.10 Atherosclerotic heart disease of native coronary artery without angina pectoris; E78.5 Hyperlipidemia, unspecified; E11.649 Type 2 diabetes mellitus with hypoglycemia without coma; N18.9 Chronic kidney disease, unspecified; E11.22 Type 2 diabetes mellitus with diabetic chronic kidney disease; I48.91 Unspecified atrial fibrillation; Z79.01 Long term (current) use of anticoagulants; Z87.891 Personal history of nicotine dependence; G89.4 Chronic pain syndrome; Z99.81 Dependence on supplemental oxygen; Z86.718 Personal history of other venous thrombosis and embolism; Z95.1 Presence of aortocoronary bypass graft
CPT/HCPCS: 36415; 71045; 71046; 80048; 80053; 80061; 82550; 82553; 82948; 83880; 84484; 85025; 93005; 93306; 94640; 99284; J1815; J2270; J2920; J2930; J7050; J7799

== ENCOUNTER 2019-12-18 00:22 | Inpatient (IN) | payer MEDICARE, OTHER ==
[~2019-12-18] VITALS: Ht 172.7 cm; Wt 96.2 kg
[~2019-12-18 00:22] MED LIST changes: +DOXYCYCLINE HY100 MG PO; +PREDNISONE20 MG PO
[2019-12-18 00:55] LABS: BASOPHILS % 0.3 % (0.0-1.0); EOSINOPHILS # (AUTO) 0.2 (0.0-0.4); HEMOGLOBIN 11.7 g/dL (14.0-18.0); LYMPHOCYTES # (AUTO) 0.9 (1.0-3.2); LYMPHOCYTES % 9.2 % (18.0-39.1); MEAN CORPUSCULAR HGB CONC 32.5 g/dL (31-35); MEAN CORPUSCULAR VOLUME 86.1 fL (81-99); MONOCYTES # (AUTO) 0.7 (0.2-0.8); MONOCYTES % 6.6 % (4.4-11.3); NEUTROPHILS # (AUTO) 8.1 (2.1-6.9); NEUTROPHILS % 81.4 % (38.7-80.0); PLATELET COUNT 160 x10e3/uL (140-360); RED BLOOD COUNT 4.18 x10e6/uL (4.3-5.7); RED CELL DISTRIBUTION WIDTH 14.5 % (11.7-14.4)
[2019-12-18 01:07] LABS: ALBUMIN 3.2 g/dL (3.5-5.0); ALBUMIN/GLOBULIN RATIO 0.9 (0.8-2.0); CALCIUM 9.2 mg/dL (8.4-10.2); CREATININE, SERUM 1.44 mg/dL (0.72-1.25)
--- NOTE | 2019-12-18 01:10 | NUR ---
ER MD AND PRIMARY RN NOTIFIED AND AWARE OF CRITICAL LAB VALUE, BLOOD GLUCOSE 425.
[2019-12-18 01:13] LABS: CREATINE KINASE MB 1.1 ng/mL (0-5.0)
[2019-12-18] MEDS ORDERED: INSULIN REGULAR, HUMAN 100 UNIT/1 ML 3ML VIAL SQ ONE ×2 (01:15)
[2019-12-18 01:19] LABS: ANION GAP 18.8 mmol/L (8-16); POTASSIUM 3.8 mmol/L (3.5-5.1)
--- NOTE | 2019-12-18 01:21 | Diagnostic Imaging Report ---
Examination: Single AP view of the chest. COMPARISON: Chest 2 views 09/21/2019 INDICATION: Respiratory distress, shortness of breath, history of COPD and CHF IMPRESSION: 1. Lines and Tubes: Stable left upper chest single lead cardiac device. 2. Lungs are well-inflated. Very mild perihilar interstitial opacities, likely reflecting minimal interstitial edema. No consolidation or effusion. 3. Stable enlargement of the cardiac silhouette. Internal pulmonary venous congestion. Findings likely reflect mildly decompensated CHF. 4. No acute bony abnormalities. Signed by: Dr. Chente Sow M.D. on 12/18/2019 1:18 AM
[2019-12-18] MEDS ORDERED: FUROSEMIDE INJ 10 MG/ML 4 ML VIAL IV ONE (02:15)
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
--- NOTE | 2019-12-18 04:46 | NUR ---
PT UNABLE TO TOLERATE NC AT 4 LPM, RR 29 WITH SPO2 95%; BIPAP REPLACED WITH RESULTING RR 25, SPO2 100%
--- NOTE | 2019-12-18 06:45 | NUR ---
0545 - PER DAVID CASTILLO AT [facility], NO AVAILABILITY 0550 - PER SANDRA CASTILLO AT [facility], NO AVAILABILITY THROUGHOUT SYSTEM, SPOKE TO DR. MICHA CRISTOBAL 0605 - PER MARY AT [facility], NO AVAILABILITY THROUGHOUT SYSTEM
--- NOTE | 2019-12-18 06:56 | NUR ---
RESP CALLED FOR HHN [place]
[2019-12-18] MEDS ORDERED: METHYLPREDNISOLONE SOD SUCC 125 MG/2ML VIAL IV ONE (07:00)
[2019-12-18] MEDS ORDERED: ALBUTEROL/IPRATROPIUM 3 ML NEB NEB ONE (07:00)
[2019-12-18] MEDS ORDERED: ALBUTEROL/IPRATROPIUM 3 ML NEB ONE (07:03)
[2019-12-18] MEDS ORDERED: ALBUTEROL/IPRATROPIUM 3 ML NEB NEB PRN (08:15)
[2019-12-18] MEDS ORDERED: NITROGLYCERIN 0.4 MG SUBL SL PRN (08:15)
[2019-12-18 11:00] VITALS: BP 129/55
[2019-12-18] MEDS ORDERED: ALBUTEROL/IPRATROPIUM 3 ML NEB NEB SCH (11:00)
[2019-12-18 11:23] VITALS: BP 128/53
[2019-12-18 12:00] VITALS: BP_SYST 128; BP_SYST 129; BP_DIAS 53; BP_DIAS 55
[2019-12-18] MEDS: MORPHINE SULFATE 2 MG/ML SYR 1ML IV PRN ×3 (12:29→23:05)
[2019-12-18] MEDS: ONDANSETRON HCL INJ 2MG/ML 2ML 2 MG/ML VIAL IV PRN ×3 (12:30→23:05)
[2019-12-18 13:00] VITALS: BP 128/53
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
[2019-12-18 16:00] VITALS: BP 122/60
[2019-12-18 16:30] LABS: CREATINE KINASE MB 0.8 ng/mL (0-5.0)
[2019-12-18] MEDS: CARVEDILOL 3.125 MG TAB PO SCH (18:36)
[2019-12-18] MEDS: INSULIN GLARGINE 100 UNITS/ML VIAL SQ SCH (18:37)
[2019-12-18] MEDS: BUDESONIDE/FORMOTEROL 160/4.5MCG INHALER INH SCH (19:00)
[2019-12-18 20:00] VITALS: BP 159/67
--- NOTE | 2019-12-18 20:00 | NUR ---
Received change of shift report from AM nurse.
[2019-12-18] MEDS: TRAZODONE HCL 50 MG TAB PO SCH (20:55)
[2019-12-18] MEDS: ATORVASTATIN 40 MG TAB PO SCH (20:55)
[2019-12-19] VITALS (9 sets, daily range): BP systolic 116–167; BP diastolic 57–86
--- NOTE | 2019-12-19 01:25 | NUR ---
Patient c/o pain = 6-7. Pain and nausea meds given as ordered by MD. Patient repositioned in bed. Continue monitor. BS elevated but received insulin from AM nurse. Continue monitor BS.
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
[2019-12-19] MEDS: MORPHINE SULFATE 2 MG/ML SYR 1ML IV PRN ×4 (02:54→21:54)
[2019-12-19] MEDS: ONDANSETRON HCL INJ 2MG/ML 2ML 2 MG/ML VIAL IV PRN ×2 (02:54→07:01)
[2019-12-19 05:12] LABS: BASOPHILS % 0.5 % (0.0-1.0); EOSINOPHILS # (AUTO) 0.5 (0.0-0.4); EOSINOPHILS % 7.3 % (0.0-6.0); HEMATOCRIT 32.8 % (38.2-49.6); HEMOGLOBIN 10.5 g/dL (14.0-18.0); LYMPHOCYTES # (AUTO) 1.2 (1.0-3.2); LYMPHOCYTES % 19.8 % (18.0-39.1); MEAN CORPUSCULAR HEMOGLOBIN 28.2 pg (28-32); MEAN CORPUSCULAR VOLUME 88.2 fL (81-99); MONOCYTES # (AUTO) 0.5 (0.2-0.8); MONOCYTES % 8.3 % (4.4-11.3); NEUTROPHILS # (AUTO) 3.9 (2.1-6.9); NEUTROPHILS % 63.9 % (38.7-80.0); PLATELET COUNT 138 x10e3/uL (140-360); RED BLOOD COUNT 3.72 x10e6/uL (4.3-5.7); RED CELL DISTRIBUTION WIDTH 14.3 % (11.7-14.4)
[2019-12-19 05:44] LABS: ALANINE AMINOTRANSFERASE 9 IU/L (0-55); ALBUMIN 2.6 g/dL (3.5-5.0); ALBUMIN/GLOBULIN RATIO 0.8 (0.8-2.0); ALKALINE PHOSPHATASE 34 IU/L (40-150); ANION GAP 11.8 mmol/L (8-16); BLOOD UREA NITROGEN 19 mg/dL (7-26); BUN/CREATININE RATIO 19 (6-25); CALCIUM 8.5 mg/dL (8.4-10.2); CARBON DIOXIDE 28 mmol/L (22-29); CHLORIDE 105 mmol/L (98-107); CHOL/HDL RATIO 5.2 (3.9-4.7); CHOLESTEROL 131 MD/DL (0-199); CREATININE, SERUM 1.02 mg/dL (0.72-1.25); EST GLOMERULAR FILTRATION RATE > 60 ML/MIN (60-); GLUCOSE 188 mg/dL (74-118); HDL CHOLESTEROL 25 MG/DL (40-60); LDL CHOLESTEROL 70 MG/DL (60-130); POTASSIUM 3.8 mmol/L (3.5-5.1); SODIUM 141 mmol/L (136-145); TRIGLYCERIDES 182 MG/DL (0-149)
[2019-12-19] MEDS: ALBUTEROL/IPRATROPIUM 3 ML NEB NEB PRN ×3 (06:35→22:50)
--- NOTE | 2019-12-19 06:52 | NUR ---
Patient resting quitly at this time. Continue monitor.
[2019-12-19] MEDS: BUDESONIDE/FORMOTEROL 160/4.5MCG INHALER INH SCH ×2 (07:00→19:00)
[2019-12-19 07:29] LABS: CREATINE KINASE MB 0.9 ng/mL (0-5.0)
--- NOTE | 2019-12-19 07:38 | Diagnostic Imaging Report ---
EXAMINATION: PA and lateral views of the chest. COMPARISON: Portable chest 12/18/2019, chest two views 09/21/2019 CLINICAL HISTORY: CHF exacerbation, shortness of breath DISCUSSION: Lines/tubes: Stable single lead left upper chest cardiac device, with the distal tip projecting in the right ventricle. Lungs and pleura: The lungs are well-inflated. Patchy opacity in the posterior left lower lung with partial obscuration of the posterior costophrenic sulcus, likely representing small volume pleural effusion and associated atelectasis. Minimal perihilar interstitial prominence Right lung is grossly clear. Heart and mediastinum: Stable enlargement of the cardiac silhouette. Central pulmonary venous congestion Bones and soft tissues: No acute bony abnormalities. Degenerative changes in the thoracic spine. Midline sternotomy wires. IMPRESSION: 1. Stable enlargement of the cardiac silhouette with central pulmonary venous congestion and minimal perihilar interstitial edema, suggesting mildly decompensated CHF. 2. Findings in the posterior left lower lung suggests small volume pleural effusion and associated atelectasis. Pneumonia is a consideration in the appropriate clinical setting. Signed by: Dr. Chente Sow M.D. on 12/19/2019 7:35 AM
[2019-12-19] MEDS: FENOFIBRATE 145 MG TAB PO SCH (10:13)
[2019-12-19] MEDS: RIVAROXABAN 15 MG TABLET PO SCH (10:13)
[2019-12-19] MEDS: CARVEDILOL 3.125 MG TAB PO SCH ×2 (10:28→17:50)
[2019-12-19] MEDS: HYDROCODONE/APAP 10MG-325MG TAB PO SCH ×2 (15:19→21:54)
[2019-12-19] MEDS: TIZANIDINE HCL 4 MG TAB PO SCH ×2 (15:20→21:55)
--- NOTE | 2019-12-19 15:30 | NUR ---
handoff report to nurse Leann FERRIS verbalized understanding
--- NOTE | 2019-12-19 16:05 | Progress Note ---
DATE: SUBJECTIVE: The patient is a 74-year-old gentleman who came in with acute respiratory distress with CHF exacerbation and COPD exacerbation. Echocardiogram was done yesterday. The patient has borderline EF with history of congestive heart failure. Currently, feeling better. Complains of some pain on the back, asking more pain medication. The patient is also short of breath and has difficulty walking to the bathroom and gets hypoxic. OBJECTIVE: VITAL SIGNS: Temperature is 97.7, pulse of 61, blood pressure is 143/65, pulse oximetry of 94% on 4 L of oxygen. HEENT: Normocephalic and atraumatic. Pupils are reactive to light and accommodation. CVS: S1 and S2 normal. Regular rate and rhythm. ABDOMEN: Soft, nontender, nondistended. LUNGS: Decreased air entry into all lung ybarra. Positive scattered inspiratory wheezes. EXTREMITIES: No clubbing, no cyanosis. Positive for trace edema. LABORATORY VALUES: Today's white count is 6.16, hemoglobin of 10.5, hematocrit of 32.8. Chemistry show a GFR above 60. Creatinine is 1.02. Glucose is running . LDL was 70, HDL was 25. IMAGING STUDIES: Today's chest x-ray shows stable enlargement of cardiac silhouette and pleural effusion associated atelectasis and questionable pneumonia. ASSESSMENT: Mr. Wing Pompa with: 1. Acute on chronic exacerbation of chronic obstructive pulmonary disease. 2. Acute on chronic congestive heart failure with borderline ejection fraction. 3. History of paroxysmal atrial fibrillation. 4. History of DVTs. 5. History of pulmonary embolism. 6. History of coronary artery disease. 7. Hypertension. 8. Hypoxia with O2 dependency. At this time, the patient's CO2 is 28. MICROBIOLOGY: No growth in blood cultures. PLAN: Continue with O2 supplementation. The patient is to get albuterol and Atrovent treatment. Solu-Medrol is on board. The patient is getting Symbicort 2 inhalations twice a day. Albuterol and Atrovent breathing treatment to be continued. We will keep the patient in-house and can be transferred up to [facility] and possible discharge tomorrow depending on the progression. Physical therapy will be instated and if he is doing better, can be discharged tomorrow with albuterol and Atrovent treatment and also we will reinstate his [place] q.6 hours. MD CHIKA Cervantes/MATT /[id number]
--- NOTE | 2019-12-19 16:20 | Progress Note ---
DATE: SUBJECTIVE: The patient is off BiPAP and still has some dyspnea. He was started on oral prednisone daily today. He is also receiving Bumex twice a day as well as Symbicort. The patient has been receiving morphine for pain control. He has no fevers. PHYSICAL EXAMINATION: VITAL SIGNS: The blood pressure is 143/65 and the saturation is 95% and the pulse is 60. The respiratory rate is 18. HEENT: Shows no facial swelling or erythema. CARDIAC: Reveals regular rate and rhythm with normal S1, S2. LUNGS: Auscultation of lungs reveals rhonchorous breath sounds bilaterally. There is no wheezing. There is a prolonged expiratory phase. ABDOMEN: Soft and nontender. There is no rebound or guarding. EXTREMITIES: Shows no leg edema or calf tenderness. IMAGING: Chest x-ray shows an enlarged cardiac silhouette with some mild cephalization. LABORATORY DATA: BUN to creatinine ratio is normal. The other electrolytes are within normal limits. The white blood cell count is 6.16 and the hemoglobin is 10.5. The platelet count is 138. IMPRESSION: 1. Nzhxb-ff-zmirlna respiratory failure. 2. Exzwe-mi-kmbizcj systolic congestive heart failure. 3. Chronic obstructive pulmonary disease with acute exacerbation. 4. Paroxysmal atrial fibrillation. 5. Diabetes. PLAN: 1. Continue low-dose prednisone and monitor blood sugars closely. 2. Continue Bumex as well as current cardiac regimen. 3. The patient is being transferred out of the [facility] to the general medical gallagher. Corby Palma MD [facility]/ADAIRL /[id number]
--- NOTE | 2019-12-19 16:59 | NUR ---
Nutrition Screen Note RD Recommendation for Physician: - As feasible, ADAT to goal of Cardiac, 1800 ADA diet Plan of Care: RD following, monitoring for tolerance and adequacy Nutrition reason for involvement: DX: CHF Primary Diagnose(s): CHF exacerbation, COPD exacerbation PMH: CAD, CABG, AICD, stent placements, HTN, CHF, hyperlipidemia, IDDM Ht: 68 in Wt: 212 lb BMI: 32.2 kg/m2 IBW: [address] Assessment: (12/18) 74 YOM admitted for CHF exacerbation and COPD exacerbation, evaluated today per dx of CHF on admit. Pt out of room at time of visit, unable to obtain hx. No noted wt loss per prior admit 3 months ago, previously eating well. Chart reviewed. Labs and meds reviewed. Will address diet education at follow up visit. Will continue to monitor. Current Diet: clear liquids Malnutrition Evaluation (12/19/19) The patient does not meet criteria for a specified degree of malnutrition at this time. Will re-evaluate at follow-up as appropriate. Unable to assess. Diet Education Needs Assessment: Diet education indicated, unable to educate at this time. Diet tolerance: pending Nutrition Care Level: low Signed: Jaja Souza RD, LD, [facility]
[2019-12-19] MEDS: INSULIN GLARGINE 100 UNITS/ML VIAL SQ SCH (17:00)
[2019-12-19] MEDS: INSULIN LISPRO 100 UNIT/1 ML 3ML VIAL SQ SCH (17:48)
[2019-12-19] MEDS: BUMETANIDE 1 MG TAB PO SCH (17:49)
[2019-12-19] MEDS: BACLOFEN 10 MG TAB PO SCH (17:50)
--- NOTE | 2019-12-19 19:00 | NUR ---
RECEIVED PATIENT IN BEDSIDE SHIFT REPORT. PATIENT RESTING IN BED AT THIS TIME. NO PAIN REPORTED. NO S&S OF DISTRESS NOTED. BED LOCKED IN LOWEST POSITION, SIDE RAILS UPX2, CALL LIGHT IN REACH.
--- NOTE | 2019-12-19 19:20 | NUR ---
walking rounds complete, pt stable at shift change.
[2019-12-19] MEDS: ATORVASTATIN 40 MG TAB PO SCH (21:54)
[2019-12-19] MEDS: TRAZODONE HCL 50 MG TAB PO SCH (21:54)
[2019-12-19] MEDS: MORPHINE SULFATE 30 MG TAB ER PO SCH (22:00)
[2019-12-20] VITALS (9 sets, daily range): BP systolic 123–145; BP diastolic 49–68
[2019-12-20] MEDS: MORPHINE SULFATE 2 MG/ML SYR 1ML IV PRN ×6 (01:23→22:09)
[2019-12-20] MEDS: MORPHINE SULFATE 30 MG TAB ER PO SCH ×3 (05:50→22:00)
[2019-12-20 06:29] LABS: ANION GAP 11.8 mmol/L (8-16); BLOOD UREA NITROGEN 17 mg/dL (7-26); BUN/CREATININE RATIO 17 (6-25); CARBON DIOXIDE 33 mmol/L (22-29); CHLORIDE 102 mmol/L (98-107); CREATININE, SERUM 0.99 mg/dL (0.72-1.25); EST GLOMERULAR FILTRATION RATE > 60 ML/MIN (60-); GLUCOSE 84 mg/dL (74-118); POTASSIUM 3.8 mmol/L (3.5-5.1); SODIUM 143 mmol/L (136-145)
[2019-12-20] MEDS: BUDESONIDE/FORMOTEROL 160/4.5MCG INHALER INH SCH ×2 (07:00→19:00)
[2019-12-20] MEDS: ALBUTEROL/IPRATROPIUM 3 ML NEB NEB PRN ×2 (07:10→10:55)
[2019-12-20] MEDS: INSULIN LISPRO 100 UNIT/1 ML 3ML VIAL SQ SCH ×3 (07:30→17:30)
[2019-12-20] MEDS: PREDNISONE 20 MG TAB PO SCH (09:07)
[2019-12-20] MEDS: BUMETANIDE 1 MG TAB PO SCH ×2 (09:07→17:43)
[2019-12-20] MEDS: BACLOFEN 10 MG TAB PO SCH ×2 (09:07→17:43)
[2019-12-20] MEDS: RIVAROXABAN 15 MG TABLET PO SCH (09:09)
[2019-12-20] MEDS: CARVEDILOL 3.125 MG TAB PO SCH ×2 (09:09→17:43)
[2019-12-20] MEDS: TIZANIDINE HCL 4 MG TAB PO SCH ×3 (09:09→20:46)
[2019-12-20] MEDS: BUPROPION HCL SR 150 MG TAB PO SCH (09:09)
[2019-12-20] MEDS: CITALOPRAM HYDROBROMIDE 20 MG TAB PO SCH (09:10)
[2019-12-20] MEDS: FENOFIBRATE 145 MG TAB PO SCH (09:10)
[2019-12-20] MEDS: HYDROCODONE/APAP 10MG-325MG TAB PO SCH ×3 (10:00→20:46)
[2019-12-20] MEDS: INSULIN GLARGINE 100 UNITS/ML VIAL SQ SCH (17:45)
[2019-12-20] MEDS ORDERED: BISACODYL 5 MG TAB EC PO PRN (17:45)
--- NOTE | 2019-12-20 19:15 | Progress Note ---
DATE: SUBJECTIVE: The patient feels better, but still has some dyspnea on exertion. He has no chest pain. He is not having any cough. PHYSICAL EXAMINATION: VITAL SIGNS: The blood pressure is 131/60, pulse is 66, respiratory rate is normal. Saturation is 95% on 3 L. HEENT: Shows no facial swelling or erythema. CARDIAC: Reveals regular rate and rhythm with normal S1 and S2. LUNGS: Auscultation of lungs reveals a prolonged expiratory phase. There is some wheezing. ABDOMEN: Soft and nontender. There is no rebound or guarding. EXTREMITIES: Shows no leg edema or calf tenderness. There is no cyanosis or clubbing. SKIN: Shows no rashes. NEUROLOGICAL: Shows no focal abnormalities. LABORATORY DATA: White blood cell count is 6.16 and hemoglobin is 10.5. The platelet count is 138. The BUN to creatinine ratio is 17 to 0.99. Blood sugar is 182. IMPRESSION: 1. Muovy-hn-oqktwvi respiratory failure. 2. Chronic obstructive pulmonary disease with acute exacerbation. 3. Acute on chronic systolic congestive heart failure. 4. Paroxysmal atrial fibrillation. 5. Diabetes. PLAN: 1. Continue current cardiac regimen. 2. Continue prednisone. 3. Continue bronchodilators. 4. Possible discharge home tomorrow with oxygen. Corby Palma MD Lisy/MATT /[id number]
--- NOTE | 2019-12-20 19:15 | NUR ---
BEDSIDE SHIFT REPORT GIVEN TO THE TRANSMITTER OPERATOR RN. PT DENIED FURTHER NEEDS.
[2019-12-20] MEDS: TRAZODONE HCL 50 MG TAB PO SCH (20:45)
[2019-12-20] MEDS: ATORVASTATIN 40 MG TAB PO SCH (20:48)
--- NOTE | 2019-12-20 21:07 | Progress Note ---
DATE: SUBJECTIVE: The patient is a 74-year-old gentleman, who came in with acute exacerbation of COPD and CHF exacerbation. The patient is currently doing good, feeling well, but short of breath on walking. Otherwise, no chest pain or shortness of breath. OBJECTIVE: VITAL SIGNS: Temperature is 97.9, pulse of 59, respirations of 18, blood pressure is 128/60, pulse oximetry of 100%. HEENT: Normocephalic and atraumatic. Pupils reactive to light and accommodation. CVS: S1 and S2 normal. Regular rate and rhythm. ABDOMEN: Nontender and nondistended. EXTREMITIES: No clubbing, no cyanosis, no edema. LABORATORY VALUES: White count has been normal since 12/19/2019, was 6.16, hemoglobin 10.5 and hematocrit of 32.8. Sodium of 143, potassium is 3.8, BUN of 17 and creatinine 0.99. Serology, no coronavirus detected. ASSESSMENT: Mr. Wing Pompa with: 1. Chronic obstructive pulmonary disease exacerbation. 2. Acute on chronic congestive heart failure with borderline ejection fraction. 3. Hypertension. 4. Hyperlipidemia. 5. Uncontrolled diabetes mellitus. PLAN: Okay to discharge home tomorrow. The patient will be evaluated for home O2 evaluation. Once this is recorded, the patient can be discharged home and treatment for albuterol has been in the chart. Further recommendation per clinical course. We will continue to monitor the patient. MD CHIKA Cervantes/MODL /[id number]
--- NOTE | 2019-12-20 21:33 | NUR ---
Patient called wants pain medication, made aware aware that he got pain medication already and next due meds is not ready, he yelled and states I dont give a damn just give me the shot, Dr. Carerra office called, patient made aware of resp. depression with the closeness of his medication, patient is currently on 4l nc, waiting for md called back
[2019-12-20] MEDS ORDERED: PANTOPRAZOLE 40 MG 10ML VIAL IV STA (22:07)
[2019-12-21 00:54] VITALS: BP 151/59
[2019-12-21] MEDS: MORPHINE SULFATE 2 MG/ML SYR 1ML IV PRN ×6 (01:15→18:25)
[2019-12-21 05:08] VITALS: BP 146/64
[2019-12-21] MEDS: MORPHINE SULFATE 30 MG TAB ER PO SCH ×2 (06:00→14:00)
--- NOTE | 2019-12-21 06:44 | NUR ---
RECEIVED BEDSIDE SHIFT REPORT FROM OFF GOING NURSE. PATIENT IS RESTING IN BED. NO ACUTE DISTRESS NOTED. CALL LIGHT WITHIN REACH. BED IN THE LOWEST POSITION.
--- NOTE | 2019-12-21 06:52 | NUR ---
patient endorsed to next shift for continuity of care.
[2019-12-21] MEDS: BUDESONIDE/FORMOTEROL 160/4.5MCG INHALER INH SCH (07:00)
[2019-12-21 07:55] VITALS: BP 142/65
[2019-12-21 08:15] VITALS: BP 142/65
[2019-12-21] MEDS: INSULIN LISPRO 100 UNIT/1 ML 3ML VIAL SQ SCH ×3 (08:30→16:17)
[2019-12-21] MEDS: HYDROCODONE/APAP 10MG-325MG TAB PO SCH ×2 (08:38→15:00)
[2019-12-21] MEDS: BUPROPION HCL SR 150 MG TAB PO SCH (08:46)
[2019-12-21] MEDS: TIZANIDINE HCL 4 MG TAB PO SCH ×2 (08:46→15:25)
[2019-12-21] MEDS: BACLOFEN 10 MG TAB PO SCH ×2 (08:46→16:28)
[2019-12-21] MEDS: CARVEDILOL 3.125 MG TAB PO SCH ×2 (08:46→16:28)
[2019-12-21] MEDS: BUMETANIDE 1 MG TAB PO SCH ×2 (08:46→16:28)
[2019-12-21] MEDS: RIVAROXABAN 15 MG TABLET PO SCH (08:46)
[2019-12-21] MEDS: FENOFIBRATE 145 MG TAB PO SCH (08:46)
[2019-12-21] MEDS: PREDNISONE 20 MG TAB PO SCH (08:46)
[2019-12-21] MEDS: CITALOPRAM HYDROBROMIDE 20 MG TAB PO SCH (08:46)
[2019-12-21] MEDS ORDERED: PANTOPRAZOLE 40 MG 10ML VIAL IV SCH (09:00)
[2019-12-21] MEDS ORDERED: CEFTRIAXONE SOD 1 GM/NS 50 ML 50 ML IV ONE (11:30)
[2019-12-21] MEDS ORDERED: METHYLPREDNISOLONE SOD SUCC 40 MG/ML VIAL 1ML IV ONE (11:30)
[2019-12-21 11:53] VITALS: BP 132/92
[2019-12-21 15:36] VITALS: BP 129/57
[2019-12-21] MEDS: INSULIN GLARGINE 100 UNITS/ML VIAL SQ SCH (16:28)
--- NOTE | 2019-12-21 17:04 | NUR ---
DR. Juliet JAMA CLEARED PATIENT FOR DISCHARGE AND LEFT PRESCRIPTIONS ON CHART. PATIENT STATES HE FEELS ALRIGHT AND DOES NOT GET SHORT OF BREATH ON EXERTION, HE STATES HE ONLY USES THE O2 FOR COMFORT. PER DR. CHEUNG, OK TO DISCHARGE PATIENT.
--- NOTE | 2019-12-21 18:10 | Progress Note ---
DATE: SUBJECTIVE: The patient is feeling better. He has less dyspnea and less cough. PHYSICAL EXAMINATION: VITAL SIGNS: The patient is afebrile. The vital signs are stable. CARDIAC: Reveals regular rate and rhythm with normal S1 and S2. LUNGS: Auscultation of lungs reveals rhonchorous breath sounds bilaterally. There is no wheezing. ABDOMEN: Soft and nontender. There is no rebound or guarding. EXTREMITIES: Shows no leg edema or calf tenderness. There is no cyanosis or clubbing. SKIN: Shows no rashes. NEUROLOGICAL: Shows no focal abnormalities. IMPRESSION: 1. Chronic obstructive pulmonary disease with acute exacerbation. 2. Pjvxh-gw-xtpkbcl systolic congestive heart failure. 3. Diabetes. 4. Paroxysmal atrial fibrillation. PLAN: 1. Okay for discharge. 2. Low-dose prednisone. 3. Continue bronchodilators. 4. Complete antibiotics at home. MD TERE Lynne/MATT /[id number]
--- NOTE | 2019-12-21 19:21 | NUR ---
BEDSIDE SHIFT REPORT GIVEN TO ONCOMING NURSE. PATIENT IS RESTING IN BED. NO ACUTE DISTRESS NOTED. CALL LIGHT WITHIN REACH. BED IN THE LOWEST POSITION. NIGHT NURSE AWARE THAT PATIENT HAS TO BE DISCHARGED.
--- NOTE | 2019-12-21 19:59 | NUR ---
RECEIVED PT SIITING AT THE SIDE OF THE BED AND READY TO GO HOME .PT IS DISCHARGE D TO HOME .IV D/C NO ACUTE DISTRESS NOTED .CALL LUGHT WITH IN REACH .CONTINUE TO MONITOR
--- NOTE | 2019-12-24 05:52 | Discharge Summary ---
HOSPITAL COURSE: The patient came in with acute exacerbation of COPD and CHF exacerbation. The patient was recently diagnosed with history of CAD. Echocardiogram done on previous hospitalization with the EF is good and preserved. The patient had chronic diastolic dysfunction. The patient was started on steroid 1 dose and the patient was given antibiotic while in the hospital. Consult with Dr. Palma was done. The patient also had uncontrolled diabetes mellitus, epagj-ur-muokadl congestive heart failure with borderline ejection fraction. The patient did well. Oxygen evaluation was done. The patient was discharged home in stable condition. FINAL DIAGNOSES: Chronic obstructive pulmonary disorder with acute exacerbation, bgmvo-vk-kszaodi congestive heart failure with borderline ejection fraction. Hypertension, uncontrolled diabetes mellitus, and hyperlipidemia. Followup in about a week's time. For further information, look in the chart. For medicines on discharge, look in the medical reconciliation sheet. MD CHIKA Cervantes/MODL /[id number]
== END 2019-12-21 20:10 | disposition home or self-care (01) | DRG 190 ==
LOC: ER 00:22 → ERHOLD 08:07 → IMCU 10:57 → MED/SURG3 12-19 16:19
PROVIDERS: ADMIT Family Medicine; ATTEND Family Medicine
DX: J44.1 Chronic obstructive pulmonary disease with (acute) exacerbation (principal); I50.23 Acute on chronic systolic (congestive) heart failure; I11.0 Hypertensive heart disease with heart failure; Z11.59 Encounter for screening for other viral diseases; I25.10 Atherosclerotic heart disease of native coronary artery without angina pectoris; Z79.01 Long term (current) use of anticoagulants; E11.51 Type 2 diabetes mellitus with diabetic peripheral angiopathy without gangrene; Z79.4 Long term (current) use of insulin; Z87.891 Personal history of nicotine dependence; I48.0 Paroxysmal atrial fibrillation
CPT/HCPCS: 36415; 71045; 71046; 80048; 80053; 80061; 82550; 82553; 82948; 83880; 84484; 85025; 87040; 87635; 93005; 93306; 94640; 94660; 96365; 99284; J0696; J1815; J1817; J1940; J2270; J2405; J2920; J7512

== ENCOUNTER 2020-01-07 17:17 | Inpatient (IN) | payer MEDICARE, OTHER ==
[~2020-01-07] VITALS: Ht 177.8 cm; Wt 99.8 kg
[2020-01-07] MEDS ORDERED: SODIUM CHLORIDE 0.9% 1000ML 1,000 ML IV STA ×5 (17:40→21:16)
[2020-01-07] MEDS ORDERED: ALBUTEROL SULF 0.083% NEB SOLN 3 ML NEB NEB STA (17:40)
[2020-01-07] MEDS ORDERED: METHYLPREDNISOLONE SOD SUCC 125 MG/2ML VIAL IV STA (17:40)
[2020-01-07] MEDS ORDERED: FAMOTIDINE 20 MG/2 ML VIAL IV STA (17:40)
[2020-01-07] MEDS ORDERED: DIPHENHYDRAMINE HCL INJ 50 MG/ML VIAL IV ONE (17:45)
[2020-01-07] MEDS ORDERED: DIPHENHYDRAMINE HCL INJ 50 MG/ML VIAL ONE (17:49)
[2020-01-07] MEDS ORDERED: METHYLPREDNISOLONE SOD SUCC 125 MG/2ML VIAL ONE (17:49)
[2020-01-07] MEDS ORDERED: FAMOTIDINE 20 MG/2 ML VIAL IV ONE (17:49)
[2020-01-07] MEDS ORDERED: EPINEPHRINE HCL 1:1000 1ML 1 MG/ML AMP ONE (18:08)
[2020-01-07 18:09] LABS: EOSINOPHILS % 0.9 % (0.0-6.0); HEMATOCRIT 41.1 % (38.2-49.6); HEMOGLOBIN 13.3 g/dL (14.0-18.0); LYMPHOCYTES # (AUTO) 0.2 (1.0-3.2); LYMPHOCYTES % 18.1 % (18.0-39.1); MEAN CORPUSCULAR HEMOGLOBIN 27.8 pg (28-32); MEAN CORPUSCULAR HGB CONC 32.4 g/dL (31-35); MONOCYTES % 2.6 % (4.4-11.3); NEUTROPHILS # (AUTO) 0.9 (2.1-6.9); NEUTROPHILS % 77.5 % (38.7-80.0); PLATELET COUNT 177 x10e3/uL (140-360); RED BLOOD COUNT 4.78 x10e6/uL (4.3-5.7); RED CELL DISTRIBUTION WIDTH 14.3 % (11.7-14.4)
[2020-01-07 18:18] LABS: INR 1.53; PROTHROMBIN TIME 19.4 seconds (11.9-14.5)
[2020-01-07 18:19] LABS: PARTIAL THROMBOPLASTIN TIME 25.4 seconds (23.8-35.5)
[2020-01-07 18:25] LABS: ALBUMIN 3.3 g/dL (3.5-5.0); ALBUMIN/GLOBULIN RATIO 0.9 (0.8-2.0); ANION GAP 19.1 mmol/L (8-16); CALCIUM 9.9 mg/dL (8.4-10.2); CREATININE, SERUM 2.16 mg/dL (0.72-1.25); POTASSIUM 4.1 mmol/L (3.5-5.1)
[2020-01-07] MEDS ORDERED: EPINEPHRINE HCL 1:1000 1ML 1 MG/ML AMP INJ ONE ×2 (18:30→20:45)
[2020-01-07 18:33] LABS: CREATINE KINASE MB 1.3 ng/mL (0-5.0)
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
[2020-01-07] MEDS: PIPER-TAZ 3.375 GM 50 ML IV SCH (19:13)
--- NOTE | 2020-01-07 20:16 | Diagnostic Imaging Report ---
EXAMINATION: CHEST SINGLE (PORTABLE) INDICATION: Shortness of breath. COMPARISON: Multiple prior chest x-rays including most recent on 12/19/2019 FINDINGS: TUBES and LINES: Cardiac pacing device. LUNGS: Low lung volumes with prominent interstitial lung markings. There is also hazy opacification of the lung bases. PLEURA: There is probable right pleural effusion. No pneumothorax. HEART AND MEDIASTINUM: The heart is mildly enlarged. BONES AND SOFT TISSUES: No acute osseous lesion. Median sternotomy wires in place.. UPPER ABDOMEN: No free air under the diaphragm. IMPRESSION: 1. Cardiomegaly with prominent interstitial lung markings and hazy opacification of the lung bases. This constellation of findings most likely represent pulmonary edema. However, underlying infection cannot be excluded. 2. Probable trace right pleural effusion. Signed by: Irma Solitario MD on 01/07/2020 8:12 PM
[2020-01-07] MEDS ORDERED: MORPHINE SULFATE INJ 4 MG/ML INJ 1ML IV STA (21:08)
[2020-01-07] MEDS ORDERED: NOREPINEPHRINE INJ 4MG/4ML 8 MG in DEXTROSE 5% 250ML 250 ML IV STA (22:42)
[2020-01-07] MEDS ORDERED: NOREPINEPHRINE 8 MG/D5W 250 ML 250 ML ONE (23:23)
[2020-01-08] VITALS (28 sets, daily range): BP systolic 92–136; BP diastolic 47–63
--- NOTE | 2020-01-08 01:00 | NUR ---
Received patient alert, vitals stable, on blood pressure support with Levophed on iv sodium chloride at 100mls per hour
[2020-01-08] MEDS ORDERED: SODIUM CHLORIDE 0.9% 1000ML 1,000 ML ONE (01:48)
[2020-01-08] MEDS: PIPER-TAZ 3.375 GM 50 ML IV SCH ×2 (01:59→06:00)
[2020-01-08] MEDS: MORPHINE SULFATE 2 MG/ML SYR 1ML IV PRN ×5 (02:00→20:00)
--- NOTE | 2020-01-08 06:30 | NUR ---
blood sugars at 454, Dr Carrera paged with results, orders received see MAR. Additional orders, fluids changed to 125mls/hr after a 500mls bolus, CXR stat, cbc and bmp in am
[2020-01-08 06:45] LABS: BASOPHILS # (AUTO) 0.1 (0.0-0.1); BASOPHILS % 0.2 % (0.0-1.0); EOSINOPHILS % 0.1 % (0.0-6.0); HEMATOCRIT 33.4 % (38.2-49.6); HEMOGLOBIN 10.6 g/dL (14.0-18.0); LYMPHOCYTES # (AUTO) 0.2 (1.0-3.2); MEAN CORPUSCULAR HEMOGLOBIN 27.6 pg (28-32); MEAN CORPUSCULAR HGB CONC 31.7 g/dL (31-35); MONOCYTES # (AUTO) 1.4 (0.2-0.8); MONOCYTES % 5.9 % (4.4-11.3); NEUTROPHILS # (AUTO) 20.6 (2.1-6.9); NEUTROPHILS % 89.7 % (38.7-80.0); PLATELET COUNT 147 x10e3/uL (140-360); RED BLOOD COUNT 3.84 x10e6/uL (4.3-5.7); RED CELL DISTRIBUTION WIDTH 14.7 % (11.7-14.4)
--- NOTE | 2020-01-08 07:10 | NUR ---
Patient handed over, vitals remains stable on Levophed and fluids
[2020-01-08 07:11] LABS: ALBUMIN 2.4 g/dL (3.5-5.0); ALBUMIN/GLOBULIN RATIO 0.9 (0.8-2.0); ANION GAP 18.1 mmol/L (8-16); CREATININE, SERUM 2.88 mg/dL (0.72-1.25)
[2020-01-08 07:17] LABS: CALCIUM 7.3 mg/dL (8.4-10.2); POTASSIUM 5.1 mmol/L (3.5-5.1)
[2020-01-08] MEDS ORDERED: SODIUM CHLORIDE 0.9% 1000ML 1,000 ML IV SCH (07:30)
[2020-01-08] MEDS ORDERED: SODIUM CHLORIDE 0.9% 500ML 500 ML ONE (07:39)
[2020-01-08 08:08] LABS: BAND NEUTROPHILS % (MANUAL) 8 %; LYMPHOCYTES % (MANUAL) 1 % (19-48); MONOCYTES % (MANUAL) 5 % (3.4-9.0); MYELOCYTES % (MANUAL) 1 % (0-0); NEUTROPHILS % (MANUAL) 85 % (40-74)
[2020-01-08 08:09] LABS: ANISOCYTOSIS SLIGHT; PLATELET ESTIMATE ADEQUATE; PLATELET MORPHOLOGY COMMENT NORMAL; RBC MORPHOLOGY COMMENT NORMAL
[2020-01-08] MEDS ORDERED: VANCOMYCIN 1GM/NS 250 ML 250 ML IV ONE (08:45)
[2020-01-08] MEDS ORDERED: INSULIN GLARGINE 100 UNITS/ML VIAL SQ SCH (09:00)
[2020-01-08] MEDS ORDERED: SODIUM CHLORIDE 0.9% 500ML 500 ML IV ONE (09:00)
[2020-01-08] MEDS: INSULIN LISPRO 100 UNIT/1 ML 3ML VIAL SQ SCH ×3 (09:02→16:32)
--- NOTE | 2020-01-08 09:30 | Diagnostic Imaging Report ---
EXAMINATION: CHEST SINGLE (PORTABLE) INDICATION: Shortness of breath COMPARISON: Multiple prior chest radiograph, most recently 01/07/2020 FINDINGS: LINES/TUBES:Left chest pacer. LUNGS:The lungs are well-inflated. Unchanged left basilar opacities. PLEURA:No pleural effusion or pneumothorax. MEDIASTINUM:The cardiomediastinal silhouette appears unchanged in size and shape. BONES/SOFT TISSUES:No acute osseous injury. Sternotomy wires in place. ABDOMEN:No free air under the diaphragm. IMPRESSION: No significant interval change. Signed by: Franc Hutchison MD on 01/08/2020 9:27 AM
[2020-01-08] MEDS ORDERED: BUMETANIDE INJ 0.25MG/ML 4ML VIAL IV ONE (09:50)
[2020-01-08] MEDS: MEROPENEM 500MG/ NS 50ML 50 ML IV SCH ×2 (09:51→21:52)
[2020-01-08] MEDS: LINEZOLID 600 MG/D5W 300ML 300 ML IV SCH ×2 (10:11→22:35)
[2020-01-08 10:19] LABS: CLARITY,URINE SL CLOUDY (CLEAR); COLOR,URINE YELLOW (YELLOW)
[2020-01-08 10:20] LABS: KETONES,URINE NEGATIVE (NEGATIVE); LEUKOCYTE ESTERASE ,URINE NEGATIVE (NEGATIVE); NITRITE,URINE NEGATIVE (NEGATIVE); PROTEIN,URINE DIPSTICK 1+ (NEGATIVE); URINE UROBILINOGEN 0.2 mg/dL (0.2 - 1)
[2020-01-08 10:21] LABS: BILIRUBIN,URINE NEGATIVE (NEGATIVE)
[2020-01-08] MEDS: SODIUM BICARBONATE 8.4% SYRING 150 ML in STERILE WATER IV SOLN 1,000 ML IV SCH (10:24)
[2020-01-08 10:27] LABS: BACTERIA,URINE RARE /HPF
[2020-01-08 10:28] LABS: EPITHELIAL CELLS,URINE FEW /LPF
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
--- NOTE | 2020-01-08 11:11 | Diagnostic Imaging Report ---
Exam: KUB - 2 views Indication: Abdominal distention Comparison: None Findings: Mildly dilated loops of small bowel in the right abdomen measure up to 3.1 cm maximum diameter. No free air. No acute osseous injury. Partially visualized left proximal femur internal fixation hardware. Impression: Mildly dilated loops of small bowel in the right abdomen measure up to 3.1 cm maximum diameter and can be seen in the setting of ileus versus obstruction. Signed by: Franc Hutchison MD on 01/08/2020 11:07 AM
[2020-01-08] MEDS ORDERED: NOREPINEPHRINE INJ 4MG/4ML 8 MG in DEXTROSE 5% 250ML 250 ML IV PRN (11:15)
[2020-01-08] MEDS ORDERED: HYDROMORPHONE 1MG/1ML INJ IV SCH (12:10)
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
--- NOTE | 2020-01-08 13:17 | Diagnostic Imaging Report ---
EXAM: CT Abdomen and Pelvis WITHOUT intravenous contrast INDICATION: Abdominal distention COMPARISON: KUB of earlier the same day TECHNIQUE: Abdomen and pelvis were scanned utilizing a multidetector helical scanner from the lung base to the pubic symphysis without administration of IV contrast. Coronal and sagittal reformations were obtained. IV CONTRAST: None ORAL CONTRAST: Water COMPLICATIONS: None RADIATION DOSE: Total DLP: 1038 mGy*cm Dose modulation, iterative reconstruction, and/or weight based adjustment of the mA/kV was utilized to reduce the radiation dose to as low as reasonably achievable. FINDINGS: LOWER THORAX: Mild bibasilar subsegmental atelectasis. HEPATOBILIARY: No focal liver lesion. Mild gallbladder wall thickening and small amount of pericholecystic fluid. SPLEEN: No splenomegaly. PANCREAS: No focal masses or ductal dilatation. ADRENALS: No adrenal nodules. KIDNEYS/URETERS: 3 mm right lower pole nonobstructive renal calculi. No hydronephrosis or hydroureter. 4.3 cm exophytic left midpole renal cyst. 1.4 cm right upper pole renal cyst. PELVIC ORGANS/BLADDER: Lynn catheter in the decompressed bladder. PERITONEUM / RETROPERITONEUM: No free air or free fluid LYMPH NODES: No lymphadenopathy. VESSELS: Moderate atherosclerotic calcifications of the nonaneurysmal abdominal aorta and major branches. GI TRACT: No abnormal bowel wall thickening. No bowel obstruction. Interval resolution of previously seen loops of dilated small bowel in the right abdomen. Normal appendix. BONES AND SOFT TISSUES: No acute osseous injury. No suspicious lytic or blastic lesions. Status post ORIF of left proximal femur. IMPRESSION: Interval resolution of previously seen loops of dilated small bowel. No bowel obstruction. 3 mm right lower pole nonobstructive renal calculi. Signed by: Franc Hutchison MD on 01/08/2020 1:13 PM
[2020-01-08 13:58] LABS: CREATININE,URINE RANDOM 69.38 mg/dL (63-166); SODIUM,URINE 37 mmol/L
--- NOTE | 2020-01-08 14:37 | Diagnostic Imaging Report ---
EXAMINATION: CT of the thoracic spine without contrast. HISTORY: Pain, rule out spinal abscess, abdominal distention, sepsis. Unable to MRI due to pacemaker. COMPARISON: None. TECHNIQUE: Multidetector helical axial images were obtained without contrast through the thoracic spine. The images were reconstructed using bone and soft tissue algorithms and were viewed in axial, sagittal and coronal planes. Dose modulation, iterative reconstruction, and/or weight based adjustment of the mA/kV was utilized to reduce the radiation dose to as low as reasonably achievable. FINDINGS: Curvature: Normal kyphosis. Lateral right-sided curvature. Vertebrae: No evidence of fracture, infection, or neoplasm. 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 Discs: No disc herniations, spinal canal or foraminal stenosis. Arch and visualized degenerative changes at L1-L2. Spinal canal: Unremarkable. Paraspinal soft tissues: Partially visualized small pleural effusions. Posterior ribs: Irregularity of the right posterior T10 and T11 ribs may represent sequela from remote trauma/healed fractures. IMPRESSION: No evidence of steph osseous destruction, paraspinal inflammatory changes or fluid collections in this nonenhanced study. The spinal canal contents cannot be evaluated based on CT. Signed by: Dr. Joana Rivera M.D. on 01/08/2020 2:33 PM
[2020-01-08] MEDS ORDERED: ALBUTEROL SULFATE HFA 8GM INHALATION AEROSOL INH PRN (15:00)
--- NOTE | 2020-01-08 15:47 | Diagnostic Imaging Report ---
EXAM: Renal Ultrasound INDICATION: Renal insufficiency COMPARISON: CT abdomen and pelvis of 01/08/2020 TECHNIQUE: Transverse and longitudinal images of the kidneys and bladder were obtained. FINDINGS: Right Kidney: Length: 11.8 cm Appearance: Normal echogenicity. Collecting system: No hydronephrosis Stones: None Cyst/Mass: Upper pole 1.2 x 1.4 x 1.1 cm anechoic simple cyst. Left Kidney: Length: 10.9 cm Appearance: Normal echogenicity. Collecting system: No hydronephrosis Stones: None Cyst/Mass: Mid pole 1.4 x 1.3 x 1.1 cm and lower pole 3.9 x 4.4 x 3.3 cm anechoic simple cysts. Bladder: Lynn catheter in the decompressed bladder. IMPRESSION: No hydronephrosis or renal calculi. Bilateral renal cysts as above. Signed by: Franc Hutchison MD on 01/08/2020 3:44 PM
[2020-01-08] MEDS: BACLOFEN 10 MG TAB PO SCH (16:18)
[2020-01-08] MEDS ORDERED: INSULIN REGULAR, HUMAN 3ML VL 100 UNIT in SODIUM CHLORIDE 0.9% 100 ML IV SCH ×2 (18:00)
[2020-01-08] MEDS ORDERED: DEXTROSE 50% SYRINGE 50 ML IV PRN (18:00)
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
--- NOTE | 2020-01-08 19:09 | NUR ---
Dr. Daily, Dr. Morgan and ursula informed of new consults. Pt complaing of severe pain despite IV morphine. Orders given one time dose of dilaudid. Dr. Juliet palma and dr. Daily informed of abdominal distension. CT scan ordered for spine and abdomen. Orders given to insert wiggins catheter to measure accurate intake and output. Dr. Juliet Palma informed about pt's complaint of pain, MD restarted home pain medications and gave orders for insulin drip due to elevated blood sugars. Levophed drip weaned off during shift.
[2020-01-08] MEDS: TRAZODONE HCL 50 MG TAB PO SCH (21:20)
[2020-01-08] MEDS: ATORVASTATIN 40 MG TAB PO SCH (21:20)
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
[2020-01-08] MEDS: MORPHINE SULFATE 30 MG TAB ER PO SCH (21:52)
[2020-01-09] VITALS (17 sets, daily range): BP systolic 85–121; BP diastolic 51–81
[2020-01-09] MEDS: MORPHINE SULFATE 2 MG/ML SYR 1ML IV PRN ×2 (00:22→05:00)
[2020-01-09] MEDS ORDERED: MAGNESIUM HYDROXIDE 30 ML UDC PO ONE (01:00)
[2020-01-09] MEDS ORDERED: BISACODYL 10 MG SUPP PR ONE (01:00)
--- NOTE | 2020-01-09 01:00 | NUR ---
Reviewed by Dr Morgan, ordered meds for constipation , ordered for HIDA SCAN, ON HOLD until a decision is made in the morning. US abdomen ordered for am,patient NPO in preparation for the US
[2020-01-09] MEDS: SODIUM BICARBONATE 8.4% SYRING 150 ML in STERILE WATER IV SOLN 1,000 ML IV SCH (02:36)
[2020-01-09] MEDS ORDERED: MINERAL OIL 132 ML BTL PR ONE (03:30)
[2020-01-09 04:41] LABS: BASOPHILS # (AUTO) 0.1 (0.0-0.1); BASOPHILS % 0.5 % (0.0-1.0); EOSINOPHILS # (AUTO) 0.4 (0.0-0.4); EOSINOPHILS % 2.7 % (0.0-6.0); HEMATOCRIT 32.9 % (38.2-49.6); HEMOGLOBIN 10.5 g/dL (14.0-18.0); LYMPHOCYTES # (AUTO) 0.5 (1.0-3.2); LYMPHOCYTES % 3.1 % (18.0-39.1); MEAN CORPUSCULAR HEMOGLOBIN 27.9 pg (28-32); MEAN CORPUSCULAR HGB CONC 31.9 g/dL (31-35); MEAN CORPUSCULAR VOLUME 87.3 fL (81-99); MONOCYTES # (AUTO) 0.8 (0.2-0.8); MONOCYTES % 5.1 % (4.4-11.3); NEUTROPHILS # (AUTO) 12.8 (2.1-6.9); NEUTROPHILS % 79.8 % (38.7-80.0); PLATELET COUNT 111 x10e3/uL (140-360); RED BLOOD COUNT 3.77 x10e6/uL (4.3-5.7); RED CELL DISTRIBUTION WIDTH 14.7 % (11.7-14.4)
[2020-01-09 05:05] LABS: ALBUMIN 2.4 g/dL (3.5-5.0); ALBUMIN/GLOBULIN RATIO 0.8 (0.8-2.0); ANION GAP 15.9 mmol/L (8-16); CALCIUM 7.3 mg/dL (8.4-10.2); CREATININE, SERUM 2.88 mg/dL (0.72-1.25); POTASSIUM 4.9 mmol/L (3.5-5.1)
[2020-01-09] MEDS: MORPHINE SULFATE 30 MG TAB ER PO SCH ×3 (05:38→22:00)
[2020-01-09 07:58] LABS: BAND NEUTROPHILS % (MANUAL) 2 %; LYMPHOCYTES % (MANUAL) 2 % (19-48); MONOCYTES % (MANUAL) 5 % (3.4-9.0); NEUTROPHILS % (MANUAL) 91 % (40-74)
[2020-01-09] MEDS ORDERED: MORPHINE SULFATE INJ 4 MG/ML INJ 1ML IV PRN (08:45)
[2020-01-09] MEDS: MEROPENEM 500MG/ NS 50ML 50 ML IV SCH ×2 (10:04→21:19)
[2020-01-09] MEDS: LINEZOLID 600 MG/D5W 300ML 300 ML IV SCH ×2 (10:04→22:31)
[2020-01-09] MEDS: BACLOFEN 10 MG TAB PO SCH ×2 (10:04→16:43)
--- NOTE | 2020-01-09 10:46 | Diagnostic Imaging Report ---
EXAM: US ABDOMEN COMPLETE DATE: 01/09/2020 9:29 AM INDICATION: Constipation, abdominal pain COMPARISON: Renal ultrasound from 01/08/2020, CT abdomen/pelvis from 01/08/2020 FINDINGS: The visualized pancreas is not well visualized secondary to prominent midline bowel gas. The visualized portion appears unremarkable. The liver is enlarged measuring 19.3 cm in length. The hepatic parenchyma is homogeneous without evidence for focal abnormality. The main portal vein is patent with antegrade flow and diameter of 1.1 cm, within normal limits. The gallbladder is mildly distended and contains dependently layering sludge. There is no evidence for shadowing stones, gallbladder wall thickening, or pericholecystic fluid. There is no intra or extra hepatic biliary ductal dilatation. The common bile duct measures 4 mm. Sonographic Farias's sign is negative. The spleen is normal in size measuring 10.9 cm in length and demonstrates an unremarkable sonographic appearance. The kidneys are normal in size measuring 10.3 centers in length on the right and 11.0 cm is in length on the left. Cortical thickness/echogenicity is within normal limits. A 1.3 cm simple cyst is identified within the superior pole the right kidney. 2 simple cysts are identified within the left kidney measuring 1.3 cm within the midpole and 5.3 cm within the inferior pole. There is no evidence for solid renal mass, hydronephrosis, or shadowing calculi. The visualized portions of the IVC and aorta are within normal limits. There is no ascites visualized. IMPRESSION: Small amount of dependently layering biliary sludge noted within the gallbladder. No evidence for cholelithiasis or sonographic evidence for acute cholecystitis. Bilateral renal cysts. Signed by: Dr. Akira Yepez MD on 01/09/2020 10:42 AM
--- NOTE | 2020-01-09 12:00 | NUR ---
Orders given from Dr. Carrera to transfer to medical surgical floor with telemetry. Per Juliet Palma d/c bicarb drip, insulin drip and femoral CVC. Pt transferred to room 294.
--- NOTE | 2020-01-09 14:00 | NUR ---
The pt. arried to the unit from ICU via bed. He present grossly large abd and c/o of pain. The pt was advised that as soon as he med profile has been transferred over I will give him his scheduled ms contin.
[2020-01-09] MEDS ORDERED: CITRATE OF MAGNESIA 300ML BOTTLE PO SCH (14:30)
--- NOTE | 2020-01-09 14:30 | NUR ---
The called to request info and to provide orders for the pt.
--- NOTE | 2020-01-09 16:01 | Progress Note ---
DATE: Pulmonary Progress Note SUBJECTIVE: The patient has been weaned off the pressors. He is on nasal cannula. He no longer has rash. PHYSICAL EXAMINATION: VITAL SIGNS: The blood pressure is 107/52, saturation is 98% on 3 L. HEENT: Shows no facial swelling or erythema. CARDIAC: Reveals regular rate and rhythm with normal S1 and S2. LUNGS: Auscultation of lungs reveals rhonchorous breath sounds bilaterally. There is no wheezing. ABDOMEN: Soft, nontender. There is no rebound or guarding. EXTREMITIES: Shows no leg edema or calf tenderness. There is no cyanosis or clubbing. SKIN: Shows no rashes. LABORATORY DATA: White blood cell count is 16 and hemoglobin is 10.5. The platelet count is 111. BUN to creatinine ratio is 48 to 2.8. The other electrolytes are within normal limits. RADIOGRAPHIC DATA: Ultrasound of the abdomen shows some biliary sludge, but no cholelithiasis. IMPRESSION: 1. Leukocytosis and septic shock of unclear source. 2. Possible anaphylaxis. 3. Diabetes out of control. 4. Chronic obstructive pulmonary disease. 5. Atrial fibrillation. 6. Chronic renal failure stage 3. 7. History of deep vein thrombosis and pulmonary embolism. PLAN: 1. Continue current antibiotics. 2. Continue current pain medication. 3. Continue oxygen. 4. Out of bed as tolerated. Corby Palma MD [facility]/MODL /[id number]
--- NOTE | 2020-01-09 16:20 | Progress Note ---
DATE: SUBJECTIVE: A 74-year-old male, who came in with acute septic shock. The patient has currently been in ICU, will be transferred to [facility] with telemetry. The patient is feeling better. No chest pain or shortness of breath. Pain is controlled. The patient is due for a HIDA scan scheduled by GI. OBJECTIVE: VITAL SIGNS: Temperature is 97.9, pulse of 60, respirations of 12, blood pressure is 99/54, off all the pressors, pulse oximetry of 99% on 3 L of oxygen. HEENT: Normocephalic and atraumatic. Pupils are reactive to light and accommodation. CVS: S1 and S2 normal. Regular rate and rhythm. ABDOMEN: Soft, nontender, and slightly distended. EXTREMITIES: No clubbing. No cyanosis. Trace edema. LABORATORY VALUES: White count of 16,000, down from 23,000, hemoglobin of 10.5, hematocrit of 32.9. Chemistries; sodium of 136, potassium 4.9, BUN 48, creatinine of 2.88. Serology; coronavirus is nondetected. MICROBIOLOGY: Urine culture shows gram-negative bacillus less than 10,000 colonies. IMAGING STUDIES: Abdominal ultrasound shows gallbladder sludge without evidence of acute cholecystitis. ASSESSMENT: Mr. Wing Pompa with: 1. Acute sepsis. 2. Hypertension. 3. Uncontrolled diabetes mellitus. 4. Questionable anaphylactic shock. 5. Hypertension. 6. Chronic obstructive pulmonary disease with history of smoking. PLAN: Schedule for a HIDA scan today. Medications reviewed, which include Merrem and linezolid. Further recommendation per clinical course. We will continue to monitor the patient. The patient is off the pressors right now. We will transfer him to the floor and follow up with him on a regular basis. Check CBC, CMP on a regular basis. MD MARSHALL CervantesJ/MODL /[id number]
--- NOTE | 2020-01-09 16:40 | Progress Note ---
DATE: SUBJECTIVE: The patient is seen and evaluated. Available labs and notes reviewed. Discussed with Dr. Cortez. REVIEW OF SYSTEMS: Feels better. Overall abdominal pain improved. No nausea, vomiting, fever, or chills. PHYSICAL EXAMINATION: VITAL SIGNS: Temperature 97.6, pulse is 60, respirations 16, and blood pressure 107/52. GENERAL: Alert and oriented. No acute distress. CV: S1 and S2. CHEST: Equal expansion. Decreased breath sounds. No acute distress. ABDOMEN: Distended, tight a little bit, not tender. HEENT: Moist. No pallor. No JVD. EXTREMITIES: No significant edema, moves all. MEDICATIONS: Reviewed and from ID point of view, the patient is on Zyvox and meropenem. LABORATORY STUDIES: White count of 16.05, improved from 23.02. The patient had a white count of 1.16 on admission, hemoglobin 10.5, platelet 111 dropping from 147. Sodium 136, potassium 4.9, creatinine 2.88, slightly higher than couple days ago. Urine culture less than 10,000 CFU per mL of gram-negative bacilli on 01/06. Blood cultures 01/06, is negative 24 [address] IMAGING: CT of abdomen and pelvis showed interval resolution of previously seen loops of dilated small bowel. No bowel obstruction. Also has a 3 mm lower pole nonobstructive renal calculi. Abdominal ultrasound showed small amount of dependent layering biliary sludge noted within the gallbladder with no evidence for cholelithiasis or sonographic evidence of acute cholecystitis. ASSESSMENT AND PLAN: 1. Sepsis, on admission. 2. Septic shock. 3. Workup as above. 4. Diabetes. 5. Chronic kidney disease versus acute kidney injury. 6. Thrombocytopenia. 7. Leukocytosis. 8. Improved dilated bowel loops per CT. 9. On Merrem and Zyvox. Please refer to the chart for more information. Discussed with Dr. Cortez in details. Also COVID-19 was not detected on PCR on 01/07/2020. Dictated by Jose Cleary PA-C (Al) Meryl Cortez MD /MODL /[id number]
--- NOTE | 2020-01-09 16:41 | NUR ---
Temperature is 97.9, pulse of 60, respirations of 12, blood pressure is 99/54, off all the pressors, pulse oximetry of 99% on 3 L of oxygen. HEENT: Normocephalic and atraumatic. Pupils are reactive to light and accommodation. CVS: S1 and S2 normal. Regular rate and rhythm. ABDOMEN: Soft, nontender, and slightly distended. EXTREMITIES: No clubbing. No cyanosis. Trace edema. LABORATORY VALUES: White count of 16,000, down from 23,000, hemoglobin of 10.5, hematocrit of 32.9. Chemistries; sodium of 136, potassium 4.9, BUN 48, creatinine of 2.88. Serology; coronavirus is nondetected. MICROBIOLOGY: Urine culture shows gram-negative bacillus less than 10,000 colonies. IMAGING STUDIES: Abdominal ultrasound sh
[2020-01-09] MEDS ORDERED: CITRATE OF MAGNESIA 300ML BOTTLE PO ONE (17:00)
--- NOTE | 2020-01-09 18:11 | Progress Note ---
DATE: SUBJECTIVE: Mr. Pompa is currently out of ICU, in IMCU. He is currently doing better. LABORATORY DATA: Reviewed. His cultures, urine showing gram-negative rods. White count is 16.05. IMPRESSION: Sepsis, septic shock, improving. PLAN: Continue with antibiotic as ordered. HIDA scan is ordered. We will follow. MD MATEO Elena/MODL /[id number]
--- NOTE | 2020-01-09 20:11 | NUR ---
RECEIVED PT IN BED AOX3 DENIES PAIN RESPIRATIONS ARE EVEN AND UNLABORED PT HAD BM F/C INTACT DRAING CLEAR YELLOW URINE .CALL LIGHT WITH IN REACH .CONTINUE TO MONITOR
[2020-01-09] MEDS: TRAZODONE HCL 50 MG TAB PO SCH (21:19)
[2020-01-09] MEDS: ATORVASTATIN 40 MG TAB PO SCH (21:19)
[2020-01-09] MEDS ORDERED: SODIUM CHLORIDE 0.9% 250ML 250 ML ONE (21:31)
[2020-01-10] VITALS (9 sets, daily range): BP systolic 90–109; BP diastolic 50–68
[2020-01-10 05:57] LABS: BASOPHILS % 0.3 % (0.0-1.0); EOSINOPHILS # (AUTO) 0.7 (0.0-0.4); HEMATOCRIT 29.6 % (38.2-49.6); HEMOGLOBIN 9.3 g/dL (14.0-18.0); LYMPHOCYTES # (AUTO) 0.7 (1.0-3.2); LYMPHOCYTES % 6.6 % (18.0-39.1); MEAN CORPUSCULAR HEMOGLOBIN 27.2 pg (28-32); MEAN CORPUSCULAR HGB CONC 31.4 g/dL (31-35); MEAN CORPUSCULAR VOLUME 86.5 fL (81-99); MONOCYTES # (AUTO) 0.5 (0.2-0.8); MONOCYTES % 4.6 % (4.4-11.3); NEUTROPHILS # (AUTO) 7.5 (2.1-6.9); NEUTROPHILS % 76.6 % (38.7-80.0); PLATELET COUNT 112 x10e3/uL (140-360); RED BLOOD COUNT 3.42 x10e6/uL (4.3-5.7); RED CELL DISTRIBUTION WIDTH 14.8 % (11.7-14.4)
[2020-01-10] MEDS: MORPHINE SULFATE 30 MG TAB ER PO SCH ×2 (06:00→13:22)
[2020-01-10] MEDS ORDERED: BISACODYL 5 MG TAB EC PO ONE ×2 (06:00)
[2020-01-10 06:10] LABS: ALBUMIN 2.4 g/dL (3.5-5.0); ALBUMIN/GLOBULIN RATIO 0.9 (0.8-2.0); ANION GAP 11.8 mmol/L (8-16); CREATININE, SERUM 3.16 mg/dL (0.72-1.25); POTASSIUM 4.8 mmol/L (3.5-5.1)
--- NOTE | 2020-01-10 06:16 | NUR ---
BP IS 90/68 AND NOT GIVEN MS CONTIN ,PT HAS 2 BM ,CONTINUE TO MONITOR
[2020-01-10 06:19] LABS: CALCIUM 6.9 mg/dL (8.4-10.2)
[2020-01-10 06:35] LABS: % IRON SATURATION 23 % (15-50); IRON 47 ug/dL (65-175); TOTAL IRON BINDING CAPACITY 204 ug/dL (261-478); TRANSFERRIN 146 mg/dL (174-364)
[2020-01-10 06:45] LABS: FERRITIN > 2000.00 ng/mL (21.81-274.66)
--- NOTE | 2020-01-10 07:00 | NUR ---
RECEIVED BEDSIDE SHIFT REPORT FROM OFF GOING NIGHT NURSE. PATIENT IN STABLE CONDITION, NO S/S OF DISTRESS NOTED. IV SITE ASYMPTOMATIC AND PATENT, TRANSPARENT DRESSING C/D/I. TELEMETRY APPLIED. FONG APPLIED DRAINING YELLOW URINE. BED IN LOWEST POSITION AND LOCKED. CALL LIGHT WITHIN REACH.
--- NOTE | 2020-01-10 07:12 | NUR ---
CALCIUM 6.[address] GONSALEZ ORDER TO DO IONIZED CALCIUM BEDSIDE REPORT GIVEN TO THE ONCOMING NURSE
[2020-01-10] MEDS: BACLOFEN 10 MG TAB PO SCH (09:00)
--- NOTE | 2020-01-10 09:20 | NUR ---
CALLED A RAPID DUE TO THE PATIENT NOT VERBALIZING WHEN CALLING HIS NAME. THE PATIENT WAS HOLDING HIS BREATH WITH A BLANK STARE. DEMETRIA FUENTES AT BEDSIDE WITH THE NURSE ALONG WITH OTHER STAFF. ELDA LIZARRAGA-ORDERED ABG STAT, CT OF THE HEAD W/O CONTRAST. CALLED FOR A NEURO CONSULT. RT CONTACTED DR. JAMA, HE ORDERED THE PATIENT TO BE ON BI PAP.
--- NOTE | 2020-01-10 09:50 | NUR ---
NURSE ACCOMPANIED THE PATIENT DOWN TO CT- THE PATIENT WAS LETHARGIC. 3 LPM/NC APPLIED OXYGEN STATING @ 94%.
--- NOTE | 2020-01-10 10:20 | NUR ---
THE PATIENT WAS ABLE TO VERBALIZED AT THIS TIME WITH THE PCT AND NURSE HE WAS ABLE TO STATE HIS NAME AND THAT HE WAS AT THE HOSPITAL.
--- NOTE | 2020-01-10 10:24 | NUR ---
Pt out of room and no family at bedside. A card was left at the bedside to indicate a missed visit from a member of the Spiritual Care team and to inform the pt and family of the availability of a Guide Delegate 24 hours a day/7 days a week. A boat mechanic will follow up as able. REMI MCKEON Guide Delegate Spiritual Care Department O: [phone]
[2020-01-10 10:39] LABS: BAND NEUTROPHILS % (MANUAL) 3 %; EOSINOPHILS % (MANUAL) 6 % (0-7); LYMPHOCYTES % (MANUAL) 5 % (19-48); MONOCYTES % (MANUAL) 3 % (3.4-9.0); NEUTROPHILS % (MANUAL) 83 % (40-74)
[2020-01-10 10:40] LABS: PLATELET ESTIMATE SLIGHTLY DECREASED; PLATELET MORPHOLOGY COMMENT NORMAL
--- NOTE | 2020-01-10 10:58 | Diagnostic Imaging Report ---
CT BRAIN WO HISTORY: Seizure, altered mental status COMPARISON: Report from head CT dated 11/29/2013 Technique: Noncontrast axial scans were obtained from skull base to the vertex. Coronal and sagittal reconstructions obtained from the axial data. One or more of the following dose reduction techniques were used: Automated exposure control, adjustment of the mA and/or kV according to patient size, and/or utilization of iterative reconstruction technique. DISCUSSION: Scalp/Skull: Unremarkable. Brain sulci: Mildly prominent. Ventricles: Compensatory dilatation. Extra-axial spaces: No masses or fluid collections. Carotid siphon and intradural vertebral artery calcifications are present. Parenchyma: Mild bilateral deep white matter hypodensity is likely chronic microvascular ischemic change. Otherwise, no masses, hemorrhage, or large vascular territory acute infarct. Dural sinuses: No abnormal densities. Sellar/Suprasellar region: Intact. Skull base: Intact. Incidental findings: Bilateral ocular lens replacement. Minimal scattered bilateral paranasal sinus mucosal thickening. IMPRESSION: 1. No acute intracranial abnormalities. 2. Mild supratentorial chronic microvascular ischemic change. Mild generalized cerebral volume loss. Signed by: Dr. Anish Ramirez M.D. on 01/10/2020 10:55 AM
--- NOTE | 2020-01-10 11:05 | Progress Note ---
DATE: SUBJECTIVE: The patient is seen and evaluated, available labs and notes reviewed. Upon my entrance into the room, the patient was awake, but nonverbal and we then let into my eyes. We then instructed him. The nurse walked in pretty much at the same time. The patient with upper extremities some kind of rigidity and slight tremors. I instructed the patient to take a deep breath and he remains nonverbal, but the eyes are open, slightly following command. A rapid response was activated. PHYSICAL EXAMINATION: VITAL SIGNS: Temperature 98.4, pulse 58, respirations 17, and blood pressure 92/50. GENERAL: The patient is awake, not much of interaction. CV: S1 and S2. CHEST: Equal expansion, decreased breath sounds. ABDOMEN: Obese type, nontender. HEENT: Moist. No JVD. EXTREMITIES: No significant edema. MEDICATIONS: Reviewed. From ID point of view, the patient is on Zyvox and Merrem. LABORATORY STUDIES: White count of 9.82, hemoglobin 9.3, and platelet 112. Sodium 132, potassium 4.8, creatinine 3.16, which is worse than yesterday. MICROBIOLOGY: Urine culture showed Enterobacter less than 10,000 CFU per mL. Blood cultures negative. RADIOLOGY STUDIES: No new radiology studies available. ASSESSMENT AND PLAN: Short period of unresponsiveness while his eyes are open and rigidity of upper extremities. Discussed with Dr. Cortez. We will do stat CT of the brain without contrast. We will do ABG. Labs drawn already. We stopped antibiotics. Discussed and Dr. Carrera was notified. Neurology consulted. Also instructed nursing staff to notify Dr. Palma of ABG results. The patient is currently in no acute distress, becoming more responsive and now he knows his name. By the end of this dictation, the patient was visited more than twice. The patient as a matter of fact had only gone for CT of the head with staff. Awake and alert, in no acute distress. Please refer to chart for more information. Dictated by Jose Cleary PA-C (Al) Meryl Cortez MD /MODL /[id number]
[2020-01-10 14:06] LABS: ABG HCO3 24 mmol/L (22-26); ABG PCO2 49 mmHg (35-45); ABG PH 7.29 (7.35-7.45); ABG PO2 85 mmHg (80-105)
--- NOTE | 2020-01-10 15:00 | NUR ---
DR. JAMA ASSESSED THE PATIENT AND REMOVED HIM FROM THE BI PAP BACK TO 3 LPM/NC, AND PLACED THE PATIENT ON CONTINUOS PLUSE OX.
--- NOTE | 2020-01-10 16:47 | Progress Note ---
DATE: SUBJECTIVE: The patient is more somnolent this morning. He was placed on BiPAP after a rapid response was called. Neurology was also consulted. PHYSICAL EXAMINATION: VITAL SIGNS: Blood pressure is 104/66, saturation is now 98% on 3 L. HEENT: Shows no facial swelling or erythema. LYMPHATIC: Shows no submandibular, cervical, or supraclavicular adenopathy. CARDIAC: Reveals regular rate and rhythm. Normal S1 and S2. LUNGS: Auscultation of lungs reveals crackles at the bases. There is no wheezing. ABDOMEN: Soft, nontender. There is no rebound or guarding. EXTREMITIES: Shows no leg edema or calf tenderness. There is no cyanosis or clubbing. SKIN: Shows no rashes. NEUROLOGIC: Shows no focal abnormalities. IMPRESSION: 1. Metabolic encephalopathy. 2. Leukocytosis and septic shock, present on admission, that is improving. 3. Possible anaphylaxis. 4. Diabetes. 5. Atrial fibrillation. 6. Chronic renal failure stage 3. PLAN: 1. Await neurology consultation and EEG. 2. Hold baclofen as well as pain medications. 3. Continue current antibiotics. 4. Await official results of CT scan. Corby Palma MD [facility]/MODL /[id number]
--- NOTE | 2020-01-10 17:35 | NUR ---
PER DR. CARRINGTON- CLEARANCE TO REMOVE FONG ONLY BY HIM.
[2020-01-10] MEDS: SODIUM CHLORIDE 0.9% 1000ML 1,000 ML IV SCH (18:12)
[2020-01-10] MEDS ORDERED: CALCIUM GLUCONATE 10% INJ 4.65 MEQ in SODIUM CHLORIDE 0.9% 100 ML IV ONE (18:30)
--- NOTE | 2020-01-10 19:22 | NUR ---
COMPLETED BEDSIDE SHIFT REPORT FROM WITH ON COMING NIGHT NURSE. PATIENT IN STABLE CONDITION, NO S/S OF DISTRESS NOTED.PATIENT ABLE TO STATE NAME, LOCATION AND WHO THE PRESIDENT WAS TO THE ON COMING NIGHT NURSE. IV FLUIDS INFUSING, SITE ASYMPTOMATIC AND PATENT, TRANSPARENT DRESSING C/D/I. TELEMETRY APPLIED ALONG WITH CONTINUOS PULSE OX. FONG APPLIED DRAINING YELLOW URINE. BED IN LOWEST POSITION AND LOCKED. CALL LIGHT WITHIN REACH.
--- NOTE | 2020-01-10 19:45 | NUR ---
RECEIVED PT IN BED AOX2 PT IS ABLE TO VERBALIZE NOW NS AT 100ML/HR INFUSING AT LH.PT IS ON CONTINUOS PULSE OX.F/C INTACT AND DRAING YELLOW COLORED URINE
--- NOTE | 2020-01-10 20:23 | Progress Note ---
DATE: SUBJECTIVE: A 74-year-old gentleman, who was admitted to the hospital for anaphylactic shock, questionable sepsis, severe. The patient had a rapid response called this morning, was placed on BiPAP and a consult with Neurology was done for the confusion, possibly secondary to encephalopathy. OBJECTIVE: GENERAL: The patient on examination is confused. VITAL SIGNS: Temperature is 98.2, pulse of 82, blood pressure is 99/67, and pulse oximetry of 100% on 3 L. HEENT: Normocephalic and atraumatic. CVS: S1 and S2 normal. Regular rate and rhythm. LUNGS: Decreased air entry into lung bases. ABDOMEN: Soft, nontender, nondistended. EXTREMITIES: No clubbing. No cyanosis. Positive for edema. LABORATORY VALUE: White count is 9.8, hemoglobin of 9.3, and hematocrit of 29.6. Chemistry shows sodium 132, potassium 4.8, BUN 56, creatinine 3.16, GFR of 19, and calcium is 6.9. Iron was 47, TIBC 24, ferritin was 2000, and transferrin is low of 146. Serology; coronavirus nondetected. Blood cultures are negative. Urine culture showed Enterobacter cloacae. IMAGING DATA: Imaging was done . Brain CT shows no acute intracranial abnormalities, mild supratentorial chronic microvascular changes. Abdominal ultrasound shows no evidence of cholelithiasis or sonographic evidence of acute cholecystitis. ASSESSMENT: 1. Metabolic encephalopathy. 2. Toxic encephalopathy. 3. Chronic obstructive pulmonary disease exacerbation. 4. Severe sepsis. 5. Hypertension. 6. Diabetes mellitus. PLAN: Continue current regimen of antibiotics as per Dr. Cortez. We will also check his ammonia levels, check vitamin B12 level too. The patient has a longstanding history of apparent alcohol in the past too. Further recommendation per clinical course. We will continue to monitor the patient and also consult with Neurology has been done for his encephalopathy. Jarvis Carrera MD [facility]/MODL /[id number]
[2020-01-10] MEDS: TRAZODONE HCL 50 MG TAB PO SCH (21:00)
[2020-01-10] MEDS: ATORVASTATIN 40 MG TAB PO SCH (21:00)
[2020-01-11] VITALS (8 sets, daily range): BP systolic 120–156; BP diastolic 52–83
[2020-01-11] MEDS: SODIUM CHLORIDE 0.9% 1000ML 1,000 ML IV SCH ×2 (03:45→15:50)
[2020-01-11 05:50] LABS: BASOPHILS % 0.3 % (0.0-1.0); EOSINOPHILS # (AUTO) 0.7 (0.0-0.4); EOSINOPHILS % 6.9 % (0.0-6.0); HEMOGLOBIN 11.2 g/dL (14.0-18.0); LYMPHOCYTES # (AUTO) 1.3 (1.0-3.2); MEAN CORPUSCULAR HEMOGLOBIN 27.4 pg (28-32); MEAN CORPUSCULAR VOLUME 85.6 fL (81-99); MONOCYTES # (AUTO) 0.5 (0.2-0.8); NEUTROPHILS # (AUTO) 7.9 (2.1-6.9); NEUTROPHILS % 75.6 % (38.7-80.0); PLATELET COUNT 123 x10e3/uL (140-360); RED BLOOD COUNT 4.09 x10e6/uL (4.3-5.7); RED CELL DISTRIBUTION WIDTH 14.4 % (11.7-14.4)
--- NOTE | 2020-01-11 05:54 | NUR ---
PT RESTING ,NO ACUTE DISTRESS NOTED ,CALL LIGHT WITH IN REACH ,CONTINUE TO MONITOR
[2020-01-11 06:08] LABS: ALBUMIN 2.8 g/dL (3.5-5.0); ALBUMIN/GLOBULIN RATIO 0.8 (0.8-2.0); ANION GAP 15.1 mmol/L (8-16); CALCIUM 7.9 mg/dL (8.4-10.2); CREATININE, SERUM 2.2 mg/dL (0.72-1.25); POTASSIUM 4.1 mmol/L (3.5-5.1)
[2020-01-11 06:25] LABS: MAGNESIUM 2.4 MG/DL (1.3-2.1); PHOSPHORUS 3.4 MG/DL (2.3-4.7)
--- NOTE | 2020-01-11 07:09 | NUR ---
BEDSIDE REPORT GIVEN TO THE ONCOMING NURSE
--- NOTE | 2020-01-11 07:19 | NUR ---
BEDSIDE REPORT GIVEN TO THE ONCOMING NURSE
--- NOTE | 2020-01-11 07:40 | NUR ---
PATIENT IN BED RESTING WITH NO S/S OF DISTRESS. FONG CATHETER DRAINING CLEAR YELLOW URINE. WOUND WITH OPEN AND CLOSED BLISTER TO RIGHT GROIN. BED IN LOWER POSITION, CALL LIGHT AT REACH.
--- NOTE | 2020-01-11 08:30 | Diagnostic Imaging Report ---
EXAMINATION: CHEST SINGLE (PORTABLE) INDICATION: resp failure COMPARISON: None FINDINGS: AP view TUBES and LINES: There is a pacemaker embedded in the left anterior chest wall with distal tip in the right ventricle. LUNGS/PLEURA: There are bilateral patchy opacities could represent multifocal pneumonia, ARDS or edema.. There is no pleural effusion or pneumothorax. HEART AND MEDIASTINUM: Cardiac size is moderately enlarged. BONES AND SOFT TISSUES: No acute osseous lesion. Soft tissues are unremarkable. UPPER ABDOMEN: No free air under the diaphragm. IMPRESSION: Bilateral patchy opacities could represent multifocal pneumonia, ARDS or pulmonary edema. Signed by: Jose Conrad MD on 01/11/2020 8:26 AM
[2020-01-11] MEDS: CYANOCOBALAMIN INJ 1,000 MCG/ML VIAL IM SCH (09:29)
--- NOTE | 2020-01-11 09:32 | NUR ---
Nphrology Progress Notes - Subjective and Interval - patient is in AMS, neuro consulted. ROS - can not be assessed Objective - BP - 128/60 mm hg P 62/min RR 18 / min SPO2 - 90 on room air Physical Exam Gen - not in acute distress chest - mild bilateral harsh breath sounds CVS - RRR Abd - soft/NT/ND Ext - trace edema Neuro - altered Labs Hgb - 11.2, WBC 10.46, Hct - 35 N 138, K .1, BUN 49, Cr 2.2 (down fom 3.1 yesterday) CXR - bilateral patchy opacity possibly Pneumonia or ARDS or pulmonary edema Intake - 2790 cc Output - 1950 cc balance +840 cc A& P - Ac kidney injury Severe sepsis Infl ATN non oliguric ?? volume overload Metabolic encephalopathy Plan - - give lasix 40 mg iv one time - strict I & O - avoid nephrotoxins like NSAID - antibiotics as per ID - avoid NSAIDs - daily BMP Renal will keep following
[2020-01-11] MEDS ORDERED: FUROSEMIDE INJ 10 MG/ML 2 ML VIAL IV ONE (09:45)
[2020-01-11] MEDS: IRON SUCROSE 100 MG in SODIUM CHLORIDE 0.9% 100 ML 100 ML IV SCH (10:34)
[2020-01-11 11:14] LABS: BAND NEUTROPHILS % (MANUAL) 3 %; EOSINOPHILS % (MANUAL) 5 % (0-7); LYMPHOCYTES % (MANUAL) 12 % (19-48); MONOCYTES % (MANUAL) 5 % (3.4-9.0); NEUTROPHILS % (MANUAL) 75 % (40-74)
--- NOTE | 2020-01-11 11:14 | NUR ---
PATIENT NOTED WITH SOME CONFUSION, REORIENTED. NEUROLOGIST IN TO PATIENT, ALEK ORDERS RECEIVED.
[2020-01-11 11:15] LABS: PLATELET ESTIMATE SLIGHTLY DECREASED; PLATELET MORPHOLOGY COMMENT NORMAL; RBC MORPHOLOGY COMMENT NORMAL
[2020-01-11] MEDS: HYDROCODONE/APAP 10MG-325MG TAB PO PRN ×2 (13:00→21:40)
--- NOTE | 2020-01-11 15:54 | NUR ---
dictated infectious disease progress note patient seen and examined All laboratory reviewed chart review discussed with medical team at length he patient did well overnight, seems to be a little bit more mentally clear, but still has a little bit of confusion at times. OBJECTIVE: VITAL SIGNS: Temperature 97.9, pulse 64, blood pressure 156/56, sats 98%. GENERAL: He is in no apparent distress, lying in bed. LUNGS: Decreased breath sounds bilaterally. CARDIOVASCULAR: Regular rate and rhythm. ABDOMEN: Good bowel sounds. Soft, nontender. EXTREMITIES: No clubbing or cyanosis. NEUROLOGIC: Nonfocal. ASSESSMENT AND PLAN: 1. Encephalopathic, most likely metabolic versus toxin. We will continue with current care since he does seem to get a bit better. Psychiatry is seeing the patient. 2. Chronic kidney disease stage 3. Continue to monitor. 3. Chronic obstructive pulmonary disease. We will continue with his inhalers. 4. Hyperlipidemia continue with his cholesterol medicine. 5. Thrombocytopenia. We will continue to monitor. 6. Obesity. We will encourage the patient to diet. Please see hospital chart for details.
--- NOTE | 2020-01-11 16:27 | Progress Note ---
DATE: SUBJECTIVE: Mr. Pompa is feeling better. There is no new complaint. His blood cultures negative. Urine culture showed Enterobacter sensitivity pattern reviewed. OBJECTIVE: GENERAL: He has been currently alert, oriented. VITAL SIGNS: Stable, afebrile. HEENT: Not icteric. NECK: Supple. CHEST: Clear. HEART: S1-S2. No murmurs, ABDOMEN: Soft. LABORATORY DATA: His white count down to 10.46, hemoglobin 11. The patient who is currently on no antibiotic. IMPRESSION: 1. Sepsis on admission, resolved. 2. Altered mental status, seems to be better, continue supportive care. Altered mental status could be due from antibiotics. MD MATEO Elena/MATT /[id number]
--- NOTE | 2020-01-11 16:27 | Consultation ---
DATE OF CONSULTATION: Neurology Consultation REASON FOR CONSULTATION: Loss of conscious. HISTORY OF PRESENT ILLNESS: The patient is a 74-year-old male, who comes to my attention because initially for back pain. Over there, he observed feeling very badly, started itching. He became confused and then lost consciousness. He had a rash yesterday, which resolved. Mental status is continued at present, has history of COPD and progression of COPD and congestive heart failure. I was asked to see the patient because of concern of loss of consciousness or diminished level of consciousness and I was asked to evaluate for somnolence, which was noted yesterday. The patient . He is doing well. He does not recall being , but feeling well at this time. PAST MEDICAL HISTORY: Includes COPD, back pain, obesity, and a history of insulin-dependent as well as atrial fibrillation. PAST SURGICAL HISTORY: Includes coronary artery bypass graft, AICD placement, and history of hernia repair. REVIEW OF SYSTEMS: Back pain. Positive for shortness of breath. No nausea or diarrhea. No vomiting. Does endorse rash, but no seizures or neurological issues. PHYSICAL EXAMINATION: VITAL SIGNS: Temperature 98.1, heart rate is 62, blood pressure 128/60. HEENT: Extraocular muscles intact. Face symmetric. Speech is clear. There is no nuchal rigidity. EXTREMITIES: Strength in upper extremities 5/5, lower extremities 4/5. ABDOMEN: Obese, but soft. No significant edema is noted on exam. No tremors. . No ataxia noted. ASSESSMENT AND PLAN: The patient had a period of diminished level of consciousness of unclear etiology. However, it is not likely to be seizure. However, it is possible hypercapnic dysfunction and acidosis. We are going to get an EEG. We are going to get ammonia level, uric acid level, continue workup. No acute neurological changes from medication perspective at this time other than . FELICE LIU MD RR/MODL /[id number]
--- NOTE | 2020-01-11 16:41 | NUR ---
PATIENT IV LEAKING, REMOVED WITH TIP INTACT. NEW IV 20 GAUGE INSERTED TO LEFT HAND. PATIENT TOLERATED PROCEDURE WELL, IV FLUID INFUSING ORDERED.
[2020-01-11] MEDS: NYSTATIN 15 GM POWDER UD BTL TOP SCH (17:05)
--- NOTE | 2020-01-11 17:47 | Progress Note ---
DATE: SUBJECTIVE: The patient is more alert, responsive, but still has some confusion. He is on 3 L of oxygen. He has no fevers. He is not complaining of nausea or vomiting. There is no abdominal pain. PHYSICAL EXAMINATION: VITAL SIGNS: Blood pressure is 120/83, saturation is 100% on 3 L and the pulse is 67. The respiratory rate is 20. HEENT: No facial swelling or erythema. CARDIAC: Regular rate and rhythm with normal S1, S2. LUNGS: Auscultation of lungs shows decreased breath sounds at the bases. There is no wheezing. ABDOMEN: Soft, nontender. There is no rebound or guarding. EXTREMITIES: No leg edema or calf tenderness. There is no cyanosis or clubbing. SKIN: No rashes. NEUROLOGICAL: The patient to have some intermittent confusion. LABORATORY DATA: CBC is within normal limits. Blood sugar is 183. BUN to creatinine ratio is 48 to 2.2. The other electrolytes are within normal limits. IMPRESSION: 1. Metabolic encephalopathy. 2. Possible anaphylactic shock. 3. Leukocytosis and septic shock, present on admission. 4. Diabetes. 5. Atrial fibrillation. 6. Chronic renal failure, stage 3. PLAN: 1. Continue to hold any medications which could aggravate metabolic encephalopathy and monitor. 2. Await ammonia level, uric acid, and other blood test ordered by Neurology. 3. Complete IV antibiotics. 4. Continue current cardiac regimen. 5. Physical therapy. Corby Palma MD [facility]/MODL /[id number]
--- NOTE | 2020-01-11 19:15 | NUR ---
patient received awake, alert and responds appropriately to questions. no c/o pain noted. ivf continue to infuse without difficulty. pm assessment complete. call gonzalez placed within reach. patient instructed to call for assistance when needed. bed alarm remains on for safety.
[2020-01-11] MEDS: ATORVASTATIN 40 MG TAB PO SCH (21:00)
[2020-01-11] MEDS: TRAZODONE HCL 50 MG TAB PO SCH (21:00)
[2020-01-11] MEDS ORDERED: BISACODYL 5 MG TAB EC PO ONE ×2 (22:30→23:30)
[2020-01-12] VITALS (8 sets, daily range): BP systolic 154–182; BP diastolic 57–84
[2020-01-12] MEDS: SODIUM CHLORIDE 0.9% 1000ML 1,000 ML IV SCH ×2 (03:15→20:14)
[2020-01-12] MEDS: HYDROCODONE/APAP 10MG-325MG TAB PO PRN ×2 (04:20→20:05)
--- NOTE | 2020-01-12 07:00 | NUR ---
PT RECEIVED ON AAOX3 IN PT WITH ASSIST HAVING A BM LG.
--- NOTE | 2020-01-12 08:04 | Progress Note ---
DATE: SUBJECTIVE: The patient did well overnight, seems to be a little bit more mentally clear, but still has a little bit of confusion at times. OBJECTIVE: VITAL SIGNS: Temperature 97.9, pulse 64, blood pressure 156/56, sats 98%. GENERAL: He is in no apparent distress, lying in bed. LUNGS: Decreased breath sounds bilaterally. CARDIOVASCULAR: Regular rate and rhythm. ABDOMEN: Good bowel sounds. Soft, nontender. EXTREMITIES: No clubbing or cyanosis. NEUROLOGIC: Nonfocal. ASSESSMENT AND PLAN: 1. Encephalopathic, most likely metabolic versus toxin. We will continue with current care since he does seem to get a bit better. Psychiatry is seeing the patient. 2. Chronic kidney disease stage 3. Continue to monitor. 3. Chronic obstructive pulmonary disease. We will continue with his inhalers. 4. Hyperlipidemia continue with his cholesterol medicine. 5. Thrombocytopenia. We will continue to monitor. 6. Obesity. We will encourage the patient to diet. Please see hospital chart for details. MD ALF Kirk/MODL /[id number]
--- NOTE | 2020-01-12 08:45 | NUR ---
PT HAS RAW TISSUE TO UPPER THIGH AREA. NYSTATIN ORDERED BUT WILL CHECK WITH MD IF HE STILL WANT THAT APPLIED.
[2020-01-12] MEDS: NYSTATIN 15 GM POWDER UD BTL TOP SCH (09:00)
[2020-01-12] MEDS: CYANOCOBALAMIN INJ 1,000 MCG/ML VIAL IM SCH (09:00)
[2020-01-12] MEDS: IRON SUCROSE 100 MG in SODIUM CHLORIDE 0.9% 100 ML 100 ML IV SCH (09:00)
--- NOTE | 2020-01-12 09:00 | NUR ---
PT ASSESSMENT COMPLETED AT THIS TIME. PT REFUSING HIS NORCO.
--- NOTE | 2020-01-12 09:31 | NUR ---
no acute issues 97.7 89 142/72 PYSICAL EXAMINATION: VITAL SIGNS: Temperature 98.1, heart rate is 62, blood pressure 128/60. HEENT: Extraocular muscles intact. Face symmetric. Speech is clear. There is no nuchal rigidity. EXTREMITIES: Strength in upper extremities 5/5, lower extremities 4/5. ABDOMEN: Obese, but soft. No significant edema is noted on exam. No tremors. No ataxia noted. ASSESSMENT AND PLAN: The patient had a period of diminished level of consciousness of unclear etiology. However, it is not likely to be seizure. However, it is possible hypercapnic dysfunction and acidosis. We are going to get an EEG. We are going to get ammonia level, uric acid level, continue workup. No acute neurological changes from medication perspective at this time
--- NOTE | 2020-01-12 11:00 | NUR ---
PT HAVING AN EEG AT THIS TIME.
--- NOTE | 2020-01-12 12:00 | NUR ---
PT HAD ANOTHER BM AND IS SITTING UP IN CHAIR FOR LUNCH
--- NOTE | 2020-01-12 17:45 | NUR ---
DR JAMA TO SEE PT NEW ORDERS RECEIVED.
[2020-01-12] MEDS: MORPHINE SULFATE 2 MG/ML SYR 1ML IV PRN (18:10)
--- NOTE | 2020-01-12 18:10 | NUR ---
IV RESTART IN RT HAND 1 ATTEMPT 20 GAUGE USED. PT TOLERATES WELL. REMOVE LT IV.
--- NOTE | 2020-01-12 19:01 | Progress Note ---
DATE: SUBJECTIVE: The patient is more awake. He is more alert. He is complaining of pain in his back and in his groin. He has abrasion in the groin. PHYSICAL EXAMINATION: VITAL SIGNS: The patient is afebrile, blood pressure is 156/84, saturation is 96% on 2 L. HEENT: Shows no facial swelling or erythema. CARDIAC: Reveals regular rate and rhythm with normal S1, S2. LUNGS: Auscultation of lungs reveals decreased breath sounds at the bases. There is no wheezing. ABDOMEN: Soft and nontender. There is an abrasion in the right groin. LABORATORY DATA: Blood sugars are 200 to 250. CBC within normal limits. IMPRESSION: 1. Metabolic encephalopathy. 2. Chronic back pain. 3. in the groin. 4. Diabetes. 5. Atrial fibrillation. 6. Chronic renal failure stage 3. PLAN: 1. Complete antibiotics. 2. Local wound care. 3. Repeat laboratory values in the morning. 4. Low-dose pain medication with careful monitoring of mental status. Corby Palma MD LM/MODL /[id number]
--- NOTE | 2020-01-12 19:30 | NUR ---
PATIENT RECEIVED. PATIENT IS AAOX3. RESP EVEN AND UNLABORED. NO ACUTE DISTRESS NOTED. TELE IN PLACE. FONG IN PLACE. RIGHT THIGH BLISTER AND WOUND NOTED. CALL LIGHT WITHIN REACH. INSTRUCT TO CALL FOR ASSISTANCE. BED ALARM ON. BED LOW/LOCKED. SIDE RAIL UP.2. CONTINUE TO MONITOR CLOSELY
[2020-01-12] MEDS: TRAZODONE HCL 50 MG TAB PO SCH (20:14)
[2020-01-12] MEDS: ATORVASTATIN 40 MG TAB PO SCH (20:15)
[2020-01-12] MEDS ORDERED: INSULIN GLARGINE 100 UNITS/ML VIAL SQ SCH (20:30)
--- NOTE | 2020-01-12 20:45 | NUR ---
NOTIFIED DR CHEUNG ABOUT HIGH BLOOD SUGAR. NEW ORDER RECEIVED.
--- NOTE | 2020-01-12 22:30 | NUR ---
[facility] CALLED AND REQUESTED FOR PATIENT TO BE NPO AND NOT TO RECEIVED ANY PAIN MED BEFORE HIDA SCAN WHICH WAS SCHEDULED AT 1000 AM.
[2020-01-13] VITALS (8 sets, daily range): BP systolic 130–167; BP diastolic 58–64
[2020-01-13] MEDS: MORPHINE SULFATE 2 MG/ML SYR 1ML IV PRN ×4 (00:13→21:45)
[2020-01-13 06:10] LABS: BASOPHILS % 0.5 % (0.0-1.0); EOSINOPHILS # (AUTO) 0.6 (0.0-0.4); EOSINOPHILS % 14.6 % (0.0-6.0); HEMATOCRIT 28.2 % (38.2-49.6); HEMOGLOBIN 9.9 g/dL (14.0-18.0); LYMPHOCYTES # (AUTO) 1.3 (1.0-3.2); LYMPHOCYTES % 33.8 % (18.0-39.1); MEAN CORPUSCULAR HGB CONC 35.1 g/dL (31-35); MEAN CORPUSCULAR VOLUME 88.4 fL (81-99); MONOCYTES # (AUTO) 0.5 (0.2-0.8); MONOCYTES % 12.8 % (4.4-11.3); NEUTROPHILS # (AUTO) 1.5 (2.1-6.9); NEUTROPHILS % 37.5 % (38.7-80.0); PLATELET COUNT 87 x10e3/uL (140-360); RED BLOOD COUNT 3.19 x10e6/uL (4.3-5.7); RED CELL DISTRIBUTION WIDTH 16.1 % (11.7-14.4)
[2020-01-13 06:37] LABS: INR 0.96; PROTHROMBIN TIME 13.4 seconds (11.9-14.5)
[2020-01-13 06:53] LABS: ALANINE AMINOTRANSFERASE 15 IU/L (0-55); ALBUMIN 2.6 g/dL (3.5-5.0); ALBUMIN/GLOBULIN RATIO 0.9 (0.8-2.0); ALKALINE PHOSPHATASE 38 IU/L (40-150); ANION GAP 10.1 mmol/L (8-16); BLOOD UREA NITROGEN 20 mg/dL (7-26); BUN/CREATININE RATIO 19 (6-25); CALCIUM 8.5 mg/dL (8.4-10.2); CARBON DIOXIDE 29 mmol/L (22-29); CHLORIDE 105 mmol/L (98-107); CREATININE, SERUM 1.07 mg/dL (0.72-1.25); EST GLOMERULAR FILTRATION RATE > 60 ML/MIN (60-); GLUCOSE 229 mg/dL (74-118); POTASSIUM 4.1 mmol/L (3.5-5.1); SODIUM 140 mmol/L (136-145)
[2020-01-13] MEDS: SODIUM CHLORIDE 0.9% 1000ML 1,000 ML IV SCH ×2 (06:53→15:45)
--- NOTE | 2020-01-13 07:27 | Progress Note ---
DATE: SUBJECTIVE: A 74-year-old gentleman. The patient was admitted to the hospital for questionable anaphylactic shock, metabolic shock, and also questionable septic shock too with elevated lactic acid. The patient is currently feeling better, better with cognition. Pain medications have been reduced. OBJECTIVE: VITAL SIGNS: Temperature is 98.0, pulse of 60, respirations of 20, blood pressure is 167/64. HEENT: Normocephalic and atraumatic. Pupils are reactive. CVS: S1 and S2 are normal. Regular rate and rhythm. ABDOMEN: Soft, nontender. EXTREMITIES: Right thigh with bullous lesions on the thigh. Extremities otherwise have no edema. LABORATORY VALUES: White count of 3.91, hemoglobin of 9.9, and hematocrit 28.2. Chemistry shows sodium 140, potassium of 4.1. Coags are normal. Serology, no coronavirus. ASSESSMENT: Mr. Wing Pompa with: 1. Encephalopathy secondary to either metabolic toxic and/or anaphylactic shock. 2. Chronic kidney injury. 3. Uncontrolled diabetes mellitus. 4. Chronic obstructive pulmonary disease. 5. Thrombocytopenia. 6. Generalized bullous lesions on the right lower extremity. PLAN: Continue as planned. Neurology has assessed the patient. EEG has been ordered. Ammonia level and uric acid have been ordered too. Ammonia level was 42, uric acid was 10.4, prolactin was 15.5. Creatinine is 2.20 and today is 1.07. EEG to be read. Hold back on pain medication as much as possible. Restart home medication. Further recommendation per course. The patient is feeling better compared to when he came in. MD CHIKA Cervantes/MODL /[id number]
[2020-01-13] MEDS: INSULIN LISPRO 100 UNIT/1 ML 3ML VIAL SQ SCH ×3 (07:30→16:30)
--- NOTE | 2020-01-13 07:40 | NUR ---
Infectious disease progress note Late entry Patient seen and examined chart reviewed events noted he patient did well overnight, seems to be a little bit more mentally clear, but still has a little bit of confusion at times. See to be getting better OBJECTIVE: VITAL SIGNS: Temperature 97.9, pulse 64, blood pressure 156/56, sats 98%. no fever GENERAL: He is in no apparent distress, lying in bed. not been ill not icteric neck supple no JVD LUNGS: Decreased breath sounds bilaterally. CARDIOVASCULAR: Regular rate and rhythm. ABDOMEN: Good bowel sounds. Soft, nontender. EXTREMITIES: No clubbing or cyanosis. NEUROLOGIC: Nonfocal. ASSESSMENT AND PLAN: 1. Encephalopathic, most likely metabolic versus toxin. seems to be better care since he does seem to get a bit better. Psychiatry is seeing the patient. 2. Chronic kidney disease stage 3. Continue to monitor. 3. Chronic obstructive pulmonary disease. We will continue with his inhalers. 4. Hyperlipidemia continue with his cholesterol medicine. 5. Thrombocytopenia. We will continue to monitor. 6. Obesity. We will encourage the patient to diet. Please see hospital chart for details. continue with supportive care
--- NOTE | 2020-01-13 07:50 | NUR ---
PATIENT IS AWAKE, ALERT, AND IN STABLE CONDITION WITH NO S/S OF RESPIRATORY DISTRESS. NO PAIN VOICED. TELEMETRY APPLIED. FONG INTACT AND DRAINING; URINE IS PALE, YELLOW, AND CLEAR. 02 APPLIED AT 2L NC. WOUND NOTED TO RIGHT THIGH (ANTERIOR AND LATERAL) AREA- OPEN TO AIR. WOUND CARE CONSULT IN PLACE. IV FLUID INFUSING. PATIENT IS CURRENTLY NPO FOR NUCLEAR MEDICINE PROCEDURE. CALL LIGHT IS WITHIN REACH, PATIENT INSTRUCTED TO CALL FOR ASSISTANCE NEEDED.
[2020-01-13] MEDS: CYANOCOBALAMIN INJ 1,000 MCG/ML VIAL IM SCH (08:43)
[2020-01-13] MEDS: IRON SUCROSE 100 MG in SODIUM CHLORIDE 0.9% 100 ML 100 ML IV SCH (08:43)
[2020-01-13] MEDS: INSULIN GLARGINE 100 UNITS/ML VIAL SQ SCH ×2 (09:00→17:28)
[2020-01-13] MEDS: CITALOPRAM HYDROBROMIDE 20 MG TAB PO SCH (12:52)
[2020-01-13] MEDS: BUPROPION HCL SR 150 MG TAB PO SCH (12:52)
[2020-01-13] MEDS: PREDNISONE 20 MG TAB PO SCH (12:52)
[2020-01-13] MEDS: CARVEDILOL 3.125 MG TAB PO SCH ×2 (12:52→16:53)
[2020-01-13] MEDS: FENOFIBRATE 145 MG TAB PO SCH (12:52)
[2020-01-13] MEDS: RIVAROXABAN 10 MG TABLET PO SCH (12:52)
[2020-01-13] MEDS: DOXYCYCLINE HYCLATE TABLET 100 MG TAB PO SCH ×2 (12:52→16:53)
--- NOTE | 2020-01-13 13:14 | NUR ---
WOUND CARE CONSULT FOR 74 YO MALE HX OF RENAL INSUFF,ANAPLACTIC SHOCK ANDREWS 16 ON MODERATE PUP STATUS AND INTERVENTIONS AND ALTERNATING PRESSURE MATTRESS LABS: WBC-3.91 HGB_9.9 GLUCOSE-229 SKIN ASSESSMENT COMPLETE PATIENT PRESENTS WITH DEROOFED BLISTERS TO RIGHT UPPER THIGH 20CM X8CM X0.1CM AND RIGHT INNER THIGH 8CM X6CM X0.1CM RECOMMENDATIONS: NURSING TO CONTINUE TO MAINTAIN MODERATE PUP STATUS AND INTERVENTIONS AND ALTERNATING PRESSURE MATTRESS NURSING TO CONTINUE TO ASSIST PATIENT OUT OF BED FOR MEALS AND MUCH TOLERATED NURSING TO CONTINUE TO ASSIST PATIENT NEEDED WITH MEALS AND NUTRITIONAL SUPPLEMENTS TO ENSURE PROPER REQUIREMENTS FOR HEALING NURSING TO CONTINUE TO OFFLOAD FEET AND HEELS NEEDED WITH PILLOW SUSPENSION WHEN IN BED NURSING TO CLEAN PARTIAL THICKNESS WOUNDS TO RIGHT UPPER AND INNER THIGH WITH NORMAL SALINE DAILY AND APPLY VENELEX OINTMENT AND ALLEVYN FOAM DRESSING Addendum: 01/13/20 at 1320 by Eros Birmingham RN Amended: Links added.
--- NOTE | 2020-01-13 14:29 | NUR ---
PRGRESS Patient seen and examined chart reviewed events noted DOING BETTER he patient did well overnight, seems to be a little bit more mentally clear, but still has a little bit of confusion at times. See to be getting better OBJECTIVE: VITAL SIGNS: Temperature 97.9, pulse 64, blood pressure 156/56, sats 98%. no fever GENERAL: He is in no apparent distress, lying in bed. not been ill not icteric neck supple no JVD LUNGS: Decreased breath sounds bilaterally. CARDIOVASCULAR: Regular rate and rhythm. ABDOMEN: Good bowel sounds. Soft, nontender. EXTREMITIES: No clubbing or cyanosis. NEUROLOGIC: Nonfocal. ASSESSMENT AND PLAN: 1. Encephalopathic, most likely metabolic versus toxin. seems to be better care since he does seem to get a bit better. Psychiatry is seeing the patient. 2. Chronic kidney disease stage 3. Continue to monitor. 3. Chronic obstructive pulmonary disease. We will continue with his inhalers. 4. Hyperlipidemia continue with his cholesterol medicine. 5. Thrombocytopenia. We will continue to monitor. 6. Obesity. We will encourage the patient to diet. Please see hospital chart for details. BETTER
--- NOTE | 2020-01-13 14:50 | Diagnostic Imaging Report ---
Hepatobiliary Scan with Gallbladder Ejection Fraction Clinical information: Anaphylactic shock; abnormal CT Technique: Following intravenous administration of 6.1 millicuries of Tc-99m mebrofenin, dynamic images of the abdomen in the anterior projection were obtained through 40 minutes. Sincalide (CCK analog) 2.0 micrograms was administered intravenously over 30 minutes with additional imaging for determination of gallbladder ejection fraction. Discussion: Perfusion of the liver is normal. Extraction of tracer by the liver parenchyma is normal. Tracer appears promptly within the biliary tract. The gallbladder begins to fill at 22 minutes post injection of tracer and fills adequately. Tracer is seen in the small bowel during the sincalide infusion. There is no contractile response by the gallbladder to the pharmacologic dose of sincalide. No emptying of the gallbladder occurs during the 30 minute infusion. Impression: 1. Filling of the gallbladder excludes acute cystic duct obstruction/acute cholecystitis. 2. The gallbladder ejection fraction is undefined as there is no emptying of the gallbladder during the infusion of sincalide. This absence of a contractile response to sincalide supports the clinical diagnosis of chronic cholecystitis/gallbladder dyskinesia. Signed by: Dr. Gali Osuna M.D. on 01/13/2020 2:47 PM
--- NOTE | 2020-01-13 17:44 | NUR ---
Nutrition Screen Note RD Recommendation for Physician: - Recommend modifying diet to ADA diet as appropriate Plan of Care: RD following, monitoring for tolerance and adequacy Nutrition reason for involvement: Length of stay Primary Diagnose(s): anaphylactic shock, renal insufficiency, intractable back pain PMH: COPD, back pain, obesity, and a history of insulin-dependence as well as atrial fibrillation. Ht: 70 in Wt: 220lb BMI: 31.6 kg/m2 IBW: [address] Assessment: (01/13/20) Chart reviewed. Labs and meds reviewed. Pt is a 74 year old male admitted with anaphylactic shock, renal insufficiency, and intractable back pain. It is recorded that pt has been consuming 50-100% of meals. No recent weight loss is evident per weight history in chart. Will continue to monitor. Current Diet: GI soft Malnutrition Evaluation (01/13/20) The patient does not meet criteria for a specified degree of malnutrition at this time. Will re-evaluate at follow-up as appropriate. Diet Education Needs Assessment: RD is available for diet education as needed Nutrition Care Level: low Signed: Hermelinda Escobedo, VINNY, LD
--- NOTE | 2020-01-13 19:32 | NUR ---
PATIENT IS IN STABLE CONDITION WITH NO S/S OF RESPIRATORY DISTRESS. NO PAIN VOICED AT THIS TIME. TELEMETRY APPLIED; 02 APPLIED. FONG INTACT AND DRAINING. IV FLUIDS INFUSING. CALL LIGHT IS WITHIN REACH, PATIENT INSTRUCTED TO CALL FOR ASSISTANCE NEEDED. BEDSIDE SHIFT REPORT COMPLETED WITH ONCOMING NURSE.
--- NOTE | 2020-01-13 20:29 | NUR ---
PATIENT RECEIVEDIN BED AAOX3. RESP EVEN AND UNLABORED. TELE #[address] RIGHT THIGH BLISTER WITH DRESSING. CALL LIGHT WITHIN REACH. CONTINUE TO MONITOR .
[2020-01-13] MEDS: TRAZODONE HCL 50 MG TAB PO SCH (21:45)
[2020-01-13] MEDS: ATORVASTATIN 40 MG TAB PO SCH (21:45)
[2020-01-14] VITALS (8 sets, daily range): BP systolic 140–179; BP diastolic 64–68
[2020-01-14] MEDS: SODIUM CHLORIDE 0.9% 1000ML 1,000 ML IV SCH (01:48)
[2020-01-14] MEDS: MORPHINE SULFATE 2 MG/ML SYR 1ML IV PRN ×6 (01:48→23:38)
[2020-01-14 05:56] LABS: BASOPHILS % 0.4 % (0.0-1.0); EOSINOPHILS # (AUTO) 0.2 (0.0-0.4); EOSINOPHILS % 4.5 % (0.0-6.0); HEMATOCRIT 31.2 % (38.2-49.6); HEMOGLOBIN 10.6 g/dL (14.0-18.0); LYMPHOCYTES # (AUTO) 1.3 (1.0-3.2); LYMPHOCYTES % 27.2 % (18.0-39.1); MEAN CORPUSCULAR HEMOGLOBIN 29.5 pg (28-32); MEAN CORPUSCULAR VOLUME 86.9 fL (81-99); MONOCYTES # (AUTO) 0.6 (0.2-0.8); NEUTROPHILS # (AUTO) 2.7 (2.1-6.9); NEUTROPHILS % 54.9 % (38.7-80.0); PLATELET COUNT 104 x10e3/uL (140-360); RED BLOOD COUNT 3.59 x10e6/uL (4.3-5.7); RED CELL DISTRIBUTION WIDTH 14.3 % (11.7-14.4)
--- NOTE | 2020-01-14 06:16 | NUR ---
PT C/O PAIN AND GIVEN MORPHINE 4 MG Q 4HR F/C INTACT .CONTINUE TO MONITOR
[2020-01-14 06:30] LABS: ANION GAP 12.5 mmol/L (8-16); BLOOD UREA NITROGEN 14 mg/dL (7-26); BUN/CREATININE RATIO 13 (6-25); CALCIUM 8.8 mg/dL (8.4-10.2); CARBON DIOXIDE 28 mmol/L (22-29); CHLORIDE 106 mmol/L (98-107); CREATININE, SERUM 1.08 mg/dL (0.72-1.25); EST GLOMERULAR FILTRATION RATE > 60 ML/MIN (60-); GLUCOSE 188 mg/dL (74-118); POTASSIUM 4.5 mmol/L (3.5-5.1); SODIUM 142 mmol/L (136-145)
--- NOTE | 2020-01-14 07:29 | NUR ---
BEDSIDE REPORT GIVEN TO THE ONCOMING NURSE
[2020-01-14] MEDS: INSULIN LISPRO 100 UNIT/1 ML 3ML VIAL SQ SCH ×3 (07:30→16:30)
--- NOTE | 2020-01-14 07:30 | NUR ---
PATIENT IS IN STABLE CONDITION WITH NO S/S OF RESPIRATORY DISTRESS- NO PAIN VOICED. 02 AND TELEMETRY APPLIED. FONG INTACT AND DRAINING. BED ALARM APPLIED. CALL LIGHT IS WITHIN REACH, PATIENT INSTRUCTED TO CALL FOR ASSISTANCE NEEDED.
--- NOTE | 2020-01-14 07:43 | Progress Note ---
DATE: SUBJECTIVE: The patient admitted to the hospital for Kussmaul anaphylactic shock, congestive heart failure and respiratory distress and for septic shock. The patient is out of the ICU. No complaints today. He is very cognitive. No chest pains. No shortness of breath. Lynn catheter to gravity. OBJECTIVE: VITAL SIGNS: Temperature 97.6, blood pressure is 150/67. HEENT: Normocephalic, atraumatic. Pupils are reactive to light and accommodation. CVS: S1 and S2 normal. Regular rate and rhythm. ABDOMEN: Soft, nontender. EXTREMITIES: No clubbing, no cyanosis, no edema. LABORATORY VALUES: White count 4.92 today, hemoglobin of 10.6, hematocrit of 31.2. Chemistry; sodium of 142, BUN of 14, creatinine of 1.08 with eGFR of 60, glucose of 188. ASSESSMENT: Mr. Wing Pompa with: 1. Encephalopathy secondary to metabolic acidosis, toxic encephalopathy, anaphylactic encephalopathy. 2. Chronic kidney injury, much better. 3. Uncontrolled diabetes mellitus. 4. Chronic obstructive pulmonary disease exacerbation. 5. Generalized bullous lesion on the right lower extremity, which is better and being covered. PLAN: Physical therapy. Pull out Lynn today. Ambulate patient and discharge planning. MD CHIKA Cervantes/ADAIRL /[id number]
[2020-01-14] MEDS: IRON SUCROSE 100 MG in SODIUM CHLORIDE 0.9% 100 ML 100 ML IV SCH (08:33)
[2020-01-14] MEDS: RIVAROXABAN 10 MG TABLET PO SCH (08:35)
[2020-01-14] MEDS: CYANOCOBALAMIN INJ 1,000 MCG/ML VIAL IM SCH (08:37)
[2020-01-14] MEDS: FENOFIBRATE 145 MG TAB PO SCH (08:38)
[2020-01-14] MEDS: PREDNISONE 20 MG TAB PO SCH (08:38)
[2020-01-14] MEDS: CARVEDILOL 3.125 MG TAB PO SCH ×2 (08:38→16:51)
[2020-01-14] MEDS: DOXYCYCLINE HYCLATE TABLET 100 MG TAB PO SCH ×2 (08:38→16:51)
[2020-01-14] MEDS: BUPROPION HCL SR 150 MG TAB PO SCH (08:38)
[2020-01-14] MEDS: CITALOPRAM HYDROBROMIDE 20 MG TAB PO SCH (08:38)
--- NOTE | 2020-01-14 08:43 | Progress Note ---
DATE: SUBJECTIVE: Denied swelling. Denied any trouble breathing. Eager to mobilize. OBJECTIVE: VITAL SIGNS: Temperature 97.6, pulse 59, blood pressure 150/67. CHEST: Clear. EXTREMITIES: No edema. GENERAL: In no distress. LABORATORY DATA: Hemoglobin is 10.6, white count 4000, platelets are 104. K is 4.5, creatinine down to 1.08. Serum CO2 28. ASSESSMENT: Acute kidney injury. Presumed tubular necrosis when he had an anaphylactic reaction. Volume seems reasonable now. Still some hypertension. PLAN: From Renal standpoint, discontinue IV fluids. Okay to MARVIN Lynn. Monitor renal function. MD LOUISE Jones/MATT /[id number]
[2020-01-14] MEDS: INSULIN GLARGINE 100 UNITS/ML VIAL SQ SCH ×2 (08:44→16:52)
[2020-01-14] MEDS: BALSAM PERU/CASTOR OIL 60 GM OINT...G. TP SCH (09:00)
--- NOTE | 2020-01-14 09:06 | NUR ---
FONG REMOVED AT 09 -PATIENT GIVEN URINAL AND INFORMED TO CALL STAFF ONCE HE URINATES SO A BLADDER SCAN CAN BE COMPLETED.
--- NOTE | 2020-01-14 11:16 | NUR ---
awake calm 97.6 59 150/67 aox3 calm speech clear eomi perrl no nuchal rigidity bradycardic abd soft nontender motor 4-/5 relfexes absent no ataxia a/p metabolic encpehalopathy,- largely resolved no acute neurological deficits neurologically stable
--- NOTE | 2020-01-14 11:58 | NUR ---
PATIENT URINATED, OUTCOME 200ML. BLADDER SCAN THE PATIENT POST VOID 0ML NOTED.
--- NOTE | 2020-01-14 18:09 | NUR ---
PRGRESS Patient seen and examined chart reviewed events noted no new problems DOING BETTER he patient did well overnight, seems to be a little bit more mentally clear, but still has a little bit of confusion at times. See to be getting better OBJECTIVE: VITAL SIGNS: Temperature 97., pulse 68, blood pressure 156/56, sats 98%. no fever GENERAL: He is in no apparent distress, lying in bed. not been ill not icteric neck supple no JVD LUNGS: Decreased breath sounds bilaterally. CARDIOVASCULAR: Regular rate and rhythm. ABDOMEN: Good bowel sounds. Soft, nontender. EXTREMITIES: No clubbing or cyanosis. NEUROLOGIC: Nonfocal. ASSESSMENT AND PLAN: 1. Encephalopathic, most likely metabolic versus toxin. seems to be better care since he does seem to get a bit better. Psychiatry is seeing the patient. 2. Chronic kidney disease stage 3. Continue to monitor. 3. Chronic obstructive pulmonary disease. We will continue with his inhalers. 4. Hyperlipidemia continue with his cholesterol medicine. 5. Thrombocytopenia. We will continue to monitor. 6. Obesity. We will encourage the patient to diet. Please see hospital chart for details. stable
--- NOTE | 2020-01-14 19:40 | NUR ---
PATIENT IS IN STABLE CONDITION WITH NO S/S OF RESPIRATORY DISTRESS- PAIN MEDICATION GIVEN TO PATIENT FOR GENERALIZE PAIN 01/02. TELEMETRY APPLIED AND CONTINUE PULSE OX APPLIED. DRESSING TO RIGHT UPPER THIGH IS C/D/I. CALL LIGHT IS WITHIN REACH, PATIENT INSTRUCTED TO CALL FOR ASSISTANCE NEEDED. REPORT COMPLETED WITH ONCOMING NURSE.
--- NOTE | 2020-01-14 19:45 | NUR ---
Patient visited in room during nursing rounds. Patient alert and oriented x3. Ambulatory in room prn. V-paced reading on telemetry. Has notable bruises on left forearm and right forearm. Right forearm with skin tear covered with telfa dressing and tape. Right upper and inner thigh with notable skin tear wounds and all covered with Allevyn foam dressing (C/D/I). Call gonzalez within reach. Will monitor closely.
[2020-01-14] MEDS: ATORVASTATIN 40 MG TAB PO SCH (21:45)
[2020-01-14] MEDS: TRAZODONE HCL 50 MG TAB PO SCH (21:45)
[2020-01-15] VITALS (7 sets, daily range): BP systolic 140–164; BP diastolic 60–73
[2020-01-15 06:35] LABS: ANION GAP 10.8 mmol/L (8-16); BLOOD UREA NITROGEN 15 mg/dL (7-26); BUN/CREATININE RATIO 16 (6-25); CALCIUM 8.3 mg/dL (8.4-10.2); CARBON DIOXIDE 27 mmol/L (22-29); CHLORIDE 107 mmol/L (98-107); CREATININE, SERUM 0.93 mg/dL (0.72-1.25); EST GLOMERULAR FILTRATION RATE > 60 ML/MIN (60-); GLUCOSE 85 mg/dL (74-118); POTASSIUM 3.8 mmol/L (3.5-5.1); SODIUM 141 mmol/L (136-145)
[2020-01-15] MEDS: INSULIN LISPRO 100 UNIT/1 ML 3ML VIAL SQ SCH ×3 (07:30→17:27)
[2020-01-15] MEDS: CITALOPRAM HYDROBROMIDE 20 MG TAB PO SCH (08:58)
[2020-01-15] MEDS: DOXYCYCLINE HYCLATE TABLET 100 MG TAB PO SCH ×2 (08:58→17:27)
[2020-01-15] MEDS: CARVEDILOL 3.125 MG TAB PO SCH ×2 (08:58→17:28)
[2020-01-15] MEDS: PREDNISONE 20 MG TAB PO SCH (08:58)
[2020-01-15] MEDS: IRON SUCROSE 100 MG in SODIUM CHLORIDE 0.9% 100 ML 100 ML IV SCH (08:58)
[2020-01-15] MEDS: FENOFIBRATE 145 MG TAB PO SCH (08:58)
[2020-01-15] MEDS: CYANOCOBALAMIN INJ 1,000 MCG/ML VIAL IM SCH (08:58)
[2020-01-15] MEDS: RIVAROXABAN 10 MG TABLET PO SCH (08:59)
[2020-01-15] MEDS: MORPHINE SULFATE 2 MG/ML SYR 1ML IV PRN ×4 (08:59→22:30)
[2020-01-15] MEDS: INSULIN GLARGINE 100 UNITS/ML VIAL SQ SCH ×2 (08:59→17:27)
[2020-01-15] MEDS: BUPROPION HCL SR 150 MG TAB PO SCH (08:59)
--- NOTE | 2020-01-15 08:59 | Progress Note ---
DATE: SUBJECTIVE: The patient came in with anaphylactic shock, septic shock, and metabolic acidosis. The patient is currently doing better, did walk with physical therapy, but complains of pain in the area of the groin where there are bullous lesions with lysis of the skin. The patient is currently feeling better. OBJECTIVE: VITAL SIGNS: Temperature is 97.6, pulse of 64, respirations of 18, blood pressure is 158/73, pulse oximetry of 95%. HEENT: Normocephalic and atraumatic. Pupils are reactive. CVS: S1 and S2 normal. Regular rate and rhythm. ABDOMEN: Soft, nontender, and nondistended. EXTREMITIES: Right upper thigh with bandage, but shows epidermolysis. MEDICATIONS: Reviewed. LABORATORY VALUES: White count is 4.92. Chemistries show sodium of 141, potassium of 3.8, BUN and creatinine normal. Serology; coronavirus is nondetected. ASSESSMENT AND PLAN: Mr. Wing Pompa with: 1. Encephalopathy, questionable metabolic acidosis, questionable toxic encephalopathy, and possible anaphylactic encephalopathy. 2. Chronic kidney injury and acute kidney injury, much better. Continue with monitoring. 3. Uncontrolled diabetes mellitus. Continue with current management. 4. History of chronic obstructive pulmonary disease, albuterol and Atrovent treatment. 5. Bullous lesions on the right lower extremity, which is probably traumatic. Further recommendation per clinical course. Wound care to continue to monitor the patient and currently the patient is on no antibiotic. Medicines reviewed. Physical therapy to rehab the patient and the patient is back on his rivaroxaban or Xarelto. Further recommendation per clinical course. Physical therapy and possible SNF eval to assess the patient for rehab and outpatient rehab. MD MARSHALL CervantesJ/MODL /[id number]
--- NOTE | 2020-01-15 09:15 | NUR ---
awake calm no acute overnight events 97.8 64 164/69 aox3 calm speech clear eomi perrl no nuchal rigidity bradycardic abd soft nontender motor 4-/5 relfexes absent no ataxia a/p metabolic encpehalopathy,- largely resolved no acute neurological deficits neurologically stable awaiting placement
[2020-01-15] MEDS: BALSAM PERU/CASTOR OIL 60 GM OINT...G. TP SCH (10:59)
[2020-01-15] MEDS: ONDANSETRON HCL INJ 2MG/ML 2ML 2 MG/ML VIAL IV PRN ×2 (11:37→22:25)
--- NOTE | 2020-01-15 14:47 | History and Physical ---
Consult to Dr. Jarvis Carrera. HISTORY OF PRESENT ILLNESS: Mr. Pompa is a 74-year-old male who was referred to me for evaluation of neutropenia. The patient is fairly confused at this time to get any meaningful history. History obtained from Dr. Deandre Conley reveals that the patient had presented with an anaphylactic shock after having received Toradol for pain. SOCIAL HISTORY: Could not be obtained. FAMILY HISTORY: Could not be obtained. ALLERGIES: REPORTED PERHAPS TORADOL. MEDICATIONS: At this time, 1. Meropenem. 2. Linezolid. 3. Norepinephrine. 4. Ondansetron. 5. Atorvastatin. 6. Trazodone. 7. Baclofen. 8. Tylenol with hydrocodone. 9. Morphine. 10. Albuterol. 11. Magnesium sulfate. REVIEW OF SYSTEMS: HEENT: Normal. CARDIAC: History of hypertension, hyperlipidemia. RESPIRATORY: Normal. GI: Normal. : Normal. MUSCULOSKELETAL: Normal. SKIN AND BREASTS: Normal. NEUROENDOCRINE: Normal. PHYSICAL EXAMINATION: GENERAL: A rather large built male, fairly confused at this time. No adenopathy. HEART: Within normal limits. LUNGS: Clear. ABDOMEN: Soft. RECTAL: Deferred. CENTRAL NERVOUS SYSTEM: Essentially normal. LABORATORY DATA: On admission showed a white count of 1160 on 01/07/2020, however on 01/08/2020, the white count was 23,200. On 01/07, the patient's hemoglobin was also 10.6 with normal indices. The platelets were low at 111,716. BUN and creatinine 38 and 2.1. Lactic acid 4.1, albumin low at 3.3. CAT scan of the abdomen showed hepatomegaly, right renal calculus as well as biliary sludge. IMPRESSION: 1. Transient neutropenia. 2. Leukemoid reaction. 3. Anemia of chronic disease. 4. Thrombocytopenia. 5. Chronic renal failure. 6. Lactic acidosis. 7. Hypoalbuminemia. 8. Biliary sludge. 9. Hepatomegaly. 10. Right renal calculus, 3 mm. 11. History of . 12. History of diabetes mellitus. 13. History of hyperlipidemia. 14. History of atrial fibrillation. 15. History of chronic obstructive pulmonary disease. 16. Anaphylaxis to Toradol. PLAN, COMMENTS, AND SUGGESTION: Suggested discontinue the linezolid because of a drop in the platelet count. I have discussed this with the Infectious Disease operations consultant. Bone marrow if needed. However, hematologically at this time, the patient is fairly stable. Thank you very much for allowing me to participate in management of this patient. I will continue to follow as a circulation sales representative as there is a Dr. Corby Marvin, there is an Infectious Disease operations consultant Dr. Meryl Cortez; there is a enterprise systems manager, Dr. Abdullahi Daily; and there is a hides inspector, Dr. Christos Morgan. MD SILKE Lucero/MODL /[id number] cc: MD Jarvis Lynne MD Zaher Shebib, MD Salman A Khan, MD Maurice S Haddad, MD
--- NOTE | 2020-01-15 14:56 | NUR ---
this is infectious disease progress note the patient is currently alert oriented seems better no new complaint. And the patient is lying in bed comfortably. This is day #8 opiate of hospitalization prepared for laboratory data reviewed chart reviewed medication list reviewed. he patient came in with anaphylactic shock, septic shock, and metabolic acidosis. The patient is currently doing better, did walk with physical therapy, but complains of pain in the area of the groin where there are bullous lesions with lysis of the skin. The patient is currently feeling better. OBJECTIVE: VITAL SIGNS: Temperature is 97.6, pulse of 64, respirations of 18, blood pressure is 158/73, pulse oximetry of 95%. HEENT: Normocephalic and atraumatic. Pupils are reactive. CVS: S1 and S2 normal. Regular rate and rhythm. ABDOMEN: Soft, nontender, and nondistended. EXTREMITIES: Right upper thigh with bandage, but shows epidermolysis. MEDICATIONS: Reviewed. LABORATORY VALUES: White count is 4.92. Chemistries show sodium of 141, potassium of 3.8, BUN and creatinine normal. Serology; coronavirus is nondetected. ASSESSMENT AND PLAN: Mr. Wing Pompa with: 1. Encephalopathy, questionable metabolic acidosis, questionable toxic encephalopathy, and possible anaphylactic encephalopathy. 2. Chronic kidney injury and acute kidney injury, much better. Continue with monitoring. 3. Uncontrolled diabetes mellitus. Continue with current management. 4. History of chronic obstructive pulmonary disease, albuterol and Atrovent treatment. 5. Bullous lesions on the right lower extremity, which is probably traumatic. Further recommendation per clinical course. Wound care to continue to monitor the patient and currently the patient is on no antibiotic. Medicines reviewed. Physical therapy to rehab the patient and the patient is back on his rivaroxaban or Xarelto. Further recommendation per clinical course. Physical therapy and possible SNF eval to assess the patient for rehab and outpatient rehab.
--- NOTE | 2020-01-15 19:10 | NUR ---
Report given to oncoming nurse of patient's status. Resting in bed, side rails upx2, call light within reach. AAOX3 to time, person, place. Respirations even and unlabored.
--- NOTE | 2020-01-15 19:44 | Progress Note ---
DATE: SUBJECTIVE: The patient is afebrile. He is now on room air. He is asking for intravenous morphine. He does not want Ulmer. PHYSICAL EXAMINATION: VITAL SIGNS: The patient is afebrile. The vital signs are stable. HEENT: Shows no facial swelling or erythema. CARDIAC: Reveals regular rate and rhythm with normal S1 and S2. LUNGS: Auscultation of lungs reveals rhonchorous breath sounds bilaterally. ABDOMEN: Soft is nontender. There is no rebound or guarding. LABORATORY DATA: CBC is significant for a blood count of 10.6. BUN and creatinine are normal and other electrolytes are within normal limits. IMPRESSION: 1. Metabolic encephalopathy. 2. Diabetes. 3. Chronic pain in the back. 4. Atrial fibrillation. 5. Chronic renal failure, stage 3. PLAN: 1. Discussed disposition with Dr. Carrera. 2. Continue to monitor mental status. 3. Continue to monitor blood sugars and give insulin as needed. 4. Wound care for right groin. 5. Pain Management. Corby Palma MD [facility]/MODL /[id number]
[2020-01-15] MEDS: ATORVASTATIN 40 MG TAB PO SCH (21:45)
[2020-01-15] MEDS: TRAZODONE HCL 50 MG TAB PO SCH (21:50)
--- NOTE | 2020-01-15 22:45 | NUR ---
Pain medication given.resting in the bed.voided. was in the unit to see the patient.need follow up with .phone and call light within reach.instructed to call for assistance as needed.
[2020-01-16] VITALS (8 sets, daily range): BP systolic 139–178; BP diastolic 56–71
[2020-01-16] MEDS: MORPHINE SULFATE 2 MG/ML SYR 1ML IV PRN ×5 (02:30→20:13)
--- NOTE | 2020-01-16 06:32 | NUR ---
BP CHECKED AND NOTED 159/69 MM OF HG.
[2020-01-16] MEDS: INSULIN GLARGINE 100 UNITS/ML VIAL SQ SCH ×2 (09:00→17:00)
[2020-01-16] MEDS: CITALOPRAM HYDROBROMIDE 20 MG TAB PO SCH (09:09)
[2020-01-16] MEDS: IRON SUCROSE 100 MG in SODIUM CHLORIDE 0.9% 100 ML 100 ML IV SCH (09:09)
[2020-01-16] MEDS: CYANOCOBALAMIN INJ 1,000 MCG/ML VIAL IM SCH (09:09)
[2020-01-16] MEDS: DOXYCYCLINE HYCLATE TABLET 100 MG TAB PO SCH ×2 (09:10→16:45)
[2020-01-16] MEDS: RIVAROXABAN 10 MG TABLET PO SCH (09:10)
[2020-01-16] MEDS: BUPROPION HCL SR 150 MG TAB PO SCH (09:10)
[2020-01-16] MEDS: FENOFIBRATE 145 MG TAB PO SCH (09:10)
[2020-01-16] MEDS: PREDNISONE 20 MG TAB PO SCH (09:10)
[2020-01-16] MEDS: CARVEDILOL 3.125 MG TAB PO SCH ×2 (09:11→17:00)
[2020-01-16] MEDS: BALSAM PERU/CASTOR OIL 60 GM OINT...G. TP SCH (09:19)
[2020-01-16] MEDS: INSULIN LISPRO 100 UNIT/1 ML 3ML VIAL SQ SCH ×3 (10:41→16:30)
[2020-01-16] MEDS: ONDANSETRON HCL INJ 2MG/ML 2ML 2 MG/ML VIAL IV PRN ×3 (10:49→20:13)
--- NOTE | 2020-01-16 16:15 | NUR ---
ORDER RECEIVED FOR HOME HEALTH FOR SN EVAL AND TREAT, PT EVAL AND TREAT AND WOUND CARE. CALL TO THE PT TO DISCUSS CHOICE; [facility], [facility]. PT STATES [facility]. CHOICE LETTER WAS SIGNED AND COPY TO THE PT AND COPY TO THE CHART. IMM LETTER EXPLAINED TO PT. PT VERBALIZED UNDERSTANDING. IMM LETTER SIGNED. COPY TO PT AND COPY TO CHART. REFERRAL WAS FAXED TO [facility] @ OFF: [phone] / FAX: [phone].
--- NOTE | 2020-01-16 19:00 | NUR ---
Received the patient in report.lyeing in the bed.stable condition.
--- NOTE | 2020-01-16 20:45 | Progress Note ---
DATE: SUBJECTIVE: Mr. Pompa is doing better. There is no new complaint. PHYSICAL EXAMINATION: GENERAL: He is currently alert and oriented. VITAL SIGNS: Stable, afebrile. HEENT: He is not icteric. NECK: Supple. CHEST: Clear. HEART: S1 and S2. No murmur. ABDOMEN: Soft. IMPRESSION: 1. Sepsis, improving. 2. Altered mental status, improving. 3. Diabetes mellitus. 4. Atrial fibrillation. From Infectious Disease point of view, the patient is day #9. He has urinary tract infection, to finish 14 days, but we can switch him to oral Ceftin to finish the course of antibiotic. We will keep him on IV for the time being. MD MATEO Elena/MATT /[id number]
[2020-01-16] MEDS: TRAZODONE HCL 50 MG TAB PO SCH (21:31)
[2020-01-16] MEDS: ATORVASTATIN 40 MG TAB PO SCH (21:31)
[2020-01-17] VITALS (7 sets, daily range): BP systolic 136–173; BP diastolic 54–68
[2020-01-17] MEDS: MORPHINE SULFATE 2 MG/ML SYR 1ML IV PRN ×6 (00:42→21:33)
--- NOTE | 2020-01-17 05:56 | NUR ---
Dressing changed .patient tolerated well.
--- NOTE | 2020-01-17 07:00 | NUR ---
Bed side shift report given to oncoming RN.stable condition.
[2020-01-17] MEDS: INSULIN LISPRO 100 UNIT/1 ML 3ML VIAL SQ SCH ×3 (07:30→17:15)
--- NOTE | 2020-01-17 08:52 | NUR ---
RECEIVED CALL FROM [facility] STATING THEY ARE UNABLE TO STAFF THIS PT. REFERRAL FAXED TO [facility] @ OFF: [phone] / FAX: [phone].
[2020-01-17] MEDS: INSULIN GLARGINE 100 UNITS/ML VIAL SQ SCH ×2 (09:00→17:14)
[2020-01-17] MEDS: CITALOPRAM HYDROBROMIDE 20 MG TAB PO SCH (09:00)
[2020-01-17] MEDS: CYANOCOBALAMIN INJ 1,000 MCG/ML VIAL IM SCH (09:00)
[2020-01-17] MEDS: BUPROPION HCL SR 150 MG TAB PO SCH (09:00)
[2020-01-17] MEDS: RIVAROXABAN 10 MG TABLET PO SCH (09:00)
[2020-01-17] MEDS: PREDNISONE 20 MG TAB PO SCH (09:00)
[2020-01-17] MEDS: FENOFIBRATE 145 MG TAB PO SCH (09:00)
[2020-01-17] MEDS: IRON SUCROSE 100 MG in SODIUM CHLORIDE 0.9% 100 ML 100 ML IV SCH (09:00)
[2020-01-17] MEDS: CARVEDILOL 3.125 MG TAB PO SCH ×2 (09:00→17:13)
[2020-01-17] MEDS: ONDANSETRON HCL INJ 2MG/ML 2ML 2 MG/ML VIAL IV PRN ×4 (09:09→21:33)
--- NOTE | 2020-01-17 10:48 | NUR ---
awake calm no acute overnight events 97.8 64 158/44 aox3 calm speech clear eomi perrl no nuchal rigidity bradycardic abd soft nontender motor 4-/5 relfexes absent no ataxia a/p metabolic encpehalopathy,- largely resolved no acute neurological deficits neurologically stable awaiting placement
[2020-01-17] MEDS: DOXYCYCLINE HYCLATE TABLET 100 MG TAB PO SCH ×2 (10:56→17:13)
[2020-01-17] MEDS: BALSAM PERU/CASTOR OIL 60 GM OINT...G. TP SCH (10:57)
--- NOTE | 2020-01-17 17:26 | NUR ---
Mr. Pompa is doing better. There is no new complaint. PHYSICAL EXAMINATION: GENERAL: He is currently alert and oriented. VITAL SIGNS: Stable, afebrile. HEENT: He is not icteric. NECK: Supple. CHEST: Clear. HEART: S1 and S2. No murmur. ABDOMEN: Soft. IMPRESSION: 1. Sepsis, improving. 2. Altered mental status, improving. 3. Diabetes mellitus. 4. Atrial fibrillation. From Infectious Disease point of view, the patient is day #9. He has urinary tract infection, to finish 14 days, but we can switch him to oral Ceftin to finish the course of antibiotic. We will keep him on IV for the time being. [id number]
--- NOTE | 2020-01-17 18:45 | Progress Note ---
DATE: SUBJECTIVE: Mr. Pompa is doing well. There is no new complaint. PHYSICAL EXAMINATION: GENERAL: He is currently alert and oriented. VITAL SIGNS: Stable, afebrile. HEENT: He is not icteric. NECK: Supple. CHEST: Clear. HEART: S1-S2. ABDOMEN: Soft. REVIEW OF SYSTEMS: Otherwise unremarkable. LABORATORY DATA: Reviewed. Chart reviewed. IMPRESSION AND PLAN: Sepsis, improving. Discharge planning noted. Continue as ordered. Continue with antibiotic. MD MATEO Elena/MATT /[id number]
--- NOTE | 2020-01-17 19:08 | NUR ---
walking rounds complete, report given to oncoming nurse,
[2020-01-17] MEDS: ATORVASTATIN 40 MG TAB PO SCH (21:40)
[2020-01-17] MEDS: TRAZODONE HCL 50 MG TAB PO SCH (21:40)
[2020-01-18] VITALS (9 sets, daily range): BP systolic 131–177; BP diastolic 53–72
[2020-01-18] MEDS: ONDANSETRON HCL INJ 2MG/ML 2ML 2 MG/ML VIAL IV PRN ×3 (01:33→22:57)
[2020-01-18] MEDS: MORPHINE SULFATE 2 MG/ML SYR 1ML IV PRN ×6 (01:33→22:57)
--- NOTE | 2020-01-18 06:50 | NUR ---
report given to day nurse.
[2020-01-18] MEDS: INSULIN LISPRO 100 UNIT/1 ML 3ML VIAL SQ SCH ×3 (07:30→16:30)
--- NOTE | 2020-01-18 07:34 | NUR ---
PATIENT IN BED WATCHING TV, NO DISTRESS NOTED. DRESSING INTACT TO RIGHT GROIN. BED IN LOWER POSITION, CALL LIGHT AT REACH.
[2020-01-18] MEDS: INSULIN GLARGINE 100 UNITS/ML VIAL SQ SCH ×2 (09:00→17:20)
[2020-01-18] MEDS: CYANOCOBALAMIN INJ 1,000 MCG/ML VIAL IM SCH (09:18)
[2020-01-18] MEDS: RIVAROXABAN 10 MG TABLET PO SCH (09:18)
[2020-01-18] MEDS: CARVEDILOL 3.125 MG TAB PO SCH ×2 (09:18→17:17)
[2020-01-18] MEDS: BUPROPION HCL SR 150 MG TAB PO SCH (09:18)
[2020-01-18] MEDS: DOXYCYCLINE HYCLATE TABLET 100 MG TAB PO SCH ×2 (09:18→17:17)
[2020-01-18] MEDS: CITALOPRAM HYDROBROMIDE 20 MG TAB PO SCH (09:18)
[2020-01-18] MEDS: FENOFIBRATE 145 MG TAB PO SCH (09:18)
[2020-01-18] MEDS: PREDNISONE 20 MG TAB PO SCH (09:18)
[2020-01-18] MEDS ORDERED: SODIUM CHLORIDE 0.9% 250ML 250 ML ONE (09:31)
[2020-01-18] MEDS: IRON SUCROSE 100 MG in SODIUM CHLORIDE 0.9% 100 ML 100 ML IV SCH (09:50)
[2020-01-18] MEDS: BALSAM PERU/CASTOR OIL 60 GM OINT...G. TP SCH (09:50)
--- NOTE | 2020-01-18 11:22 | NUR ---
DRESSING CHANGED TO RIGHT THIGH/GROIN WOUND. PATIENT IN BED WITH CALL LIGHT AT REACH.
--- NOTE | 2020-01-18 12:06 | NUR ---
patient stable. no acute issues 97.7 88 142/84 aox3 calm speech clear eomi perrl no nuchal rigidity bradycardic abd soft nontender motor 4-/5 reflexes absent no ataxia a/p metabolic encephalopathy,- largely resolved no acute neurological deficits neurologically stable awaiting placement
--- NOTE | 2020-01-18 15:44 | NUR ---
PATIENT C/O PAIN AND WAS MEDICATED ORDERED. NO MORE COMPLAIN OF PAIN. IN BED WITH CALL LIGHT AT REACH.
--- NOTE | 2020-01-18 17:40 | Progress Note ---
DATE: SUBJECTIVE: Mr. Pompa is doing well. There is no new complaint. PHYSICAL EXAMINATION: GENERAL: Currently alert, oriented. VITAL SIGNS: Stable, afebrile. HEENT: He is not icteric. NECK: Supple. CHEST: Clear. HEART: S1 and S2. ABDOMEN: Soft. LABORATORY DATA: Reviewed. IMPRESSION: 1. Sepsis, improving. 2. Altered mental status, resolved. 3. Atrial fibrillation, resolved. PLAN: Day #10 to finish 14 days of oriented antibiotic. Can switch to oral Ceftin. Will be discharged home. MD MATEO Elena/MODJuliet /[id number]
[2020-01-18] MEDS: ATORVASTATIN 40 MG TAB PO SCH (21:20)
[2020-01-18] MEDS: TRAZODONE HCL 50 MG TAB PO SCH (21:20)
[2020-01-19] VITALS (8 sets, daily range): BP systolic 138–167; BP diastolic 58–88
[2020-01-19] MEDS: ONDANSETRON HCL INJ 2MG/ML 2ML 2 MG/ML VIAL IV PRN ×5 (02:59→23:51)
[2020-01-19] MEDS: MORPHINE SULFATE 2 MG/ML SYR 1ML IV PRN ×6 (02:59→23:51)
[2020-01-19 05:32] LABS: BASOPHILS % 0.3 % (0.0-1.0); EOSINOPHILS # (AUTO) 0.1 (0.0-0.4); EOSINOPHILS % 1.3 % (0.0-6.0); HEMATOCRIT 28.5 % (38.2-49.6); HEMOGLOBIN 9.5 g/dL (14.0-18.0); LYMPHOCYTES # (AUTO) 1.6 (1.0-3.2); LYMPHOCYTES % 21.9 % (18.0-39.1); MEAN CORPUSCULAR HEMOGLOBIN 30.2 pg (28-32); MEAN CORPUSCULAR HGB CONC 33.3 g/dL (31-35); MEAN CORPUSCULAR VOLUME 90.5 fL (81-99); MONOCYTES # (AUTO) 0.5 (0.2-0.8); MONOCYTES % 6.7 % (4.4-11.3); NEUTROPHILS # (AUTO) 5.1 (2.1-6.9); PLATELET COUNT 162 x10e3/uL (140-360); RED BLOOD COUNT 3.15 x10e6/uL (4.3-5.7); RED CELL DISTRIBUTION WIDTH 15.7 % (11.7-14.4)
[2020-01-19 06:15] LABS: ALANINE AMINOTRANSFERASE 17 IU/L (0-55); ALBUMIN 2.4 g/dL (3.5-5.0); ALBUMIN/GLOBULIN RATIO 0.8 (0.8-2.0); ALKALINE PHOSPHATASE 35 IU/L (40-150); ANION GAP 8.6 mmol/L (8-16); BLOOD UREA NITROGEN 18 mg/dL (7-26); BUN/CREATININE RATIO 17 (6-25); CALCIUM 8.4 mg/dL (8.4-10.2); CARBON DIOXIDE 33 mmol/L (22-29); CHLORIDE 104 mmol/L (98-107); CREATININE, SERUM 1.08 mg/dL (0.72-1.25); EST GLOMERULAR FILTRATION RATE > 60 ML/MIN (60-); GLUCOSE 108 mg/dL (74-118); POTASSIUM 4.6 mmol/L (3.5-5.1); SODIUM 141 mmol/L (136-145)
--- NOTE | 2020-01-19 07:03 | NUR ---
report given to day nurse.
--- NOTE | 2020-01-19 07:06 | NUR ---
report given to day nurse.
--- NOTE | 2020-01-19 07:29 | NUR ---
PATIENT IN BED RESTING WITH EYES CLOSED, NO S/S OF DISTRESS NOTED. O2 IN PLACE VIA N/C. DRESSING INTACT TO RIGHT GROIN/THIGH. BED IN LOWER POSITION, CALL LIGHT AT REACH.
[2020-01-19] MEDS: INSULIN LISPRO 100 UNIT/1 ML 3ML VIAL SQ SCH ×3 (07:30→16:30)
[2020-01-19] MEDS: INSULIN GLARGINE 100 UNITS/ML VIAL SQ SCH ×2 (09:00→17:00)
[2020-01-19] MEDS: FENOFIBRATE 145 MG TAB PO SCH (09:20)
[2020-01-19] MEDS: PREDNISONE 20 MG TAB PO SCH (09:20)
[2020-01-19] MEDS: RIVAROXABAN 10 MG TABLET PO SCH (09:20)
[2020-01-19] MEDS: BUPROPION HCL SR 150 MG TAB PO SCH (09:20)
[2020-01-19] MEDS: DOXYCYCLINE HYCLATE TABLET 100 MG TAB PO SCH ×2 (09:20→17:36)
[2020-01-19] MEDS: CARVEDILOL 3.125 MG TAB PO SCH ×2 (09:20→17:36)
[2020-01-19] MEDS: BALSAM PERU/CASTOR OIL 60 GM OINT...G. TP SCH (09:20)
[2020-01-19] MEDS: CITALOPRAM HYDROBROMIDE 20 MG TAB PO SCH (09:20)
[2020-01-19] MEDS: CYANOCOBALAMIN INJ 1,000 MCG/ML VIAL IM SCH (09:20)
[2020-01-19] MEDS: IRON SUCROSE 100 MG in SODIUM CHLORIDE 0.9% 100 ML 100 ML IV SCH (09:32)
--- NOTE | 2020-01-19 11:43 | NUR ---
PATIENT ASSISTED WITH URINAL. VOIDED 300CC OF CLEAR YELLOW URINE. IN BED WITH CALL LIGHT AT REACH.
--- NOTE | 2020-01-19 13:53 | NUR ---
Mr. Pompa is doing well. There is no new complaint. PHYSICAL EXAMINATION: GENERAL: Currently alert, oriented. VITAL SIGNS: Stable, afebrile. HEENT: He is not icteric. NECK: Supple. CHEST: Clear. HEART: S1 and S2. ABDOMEN: Soft. LABORATORY DATA: Reviewed. IMPRESSION: 1. Sepsis, improving. 2. Altered mental status, resolved. 3. Atrial fibrillation, resolved. PLAN: Day #10 to finish 14 days of oriented antibiotic. Can switch to oral Ceftin. Will be discharged home. [id number]
--- NOTE | 2020-01-19 15:27 | NUR ---
MD IN TO SEE PATIENT, NO NEW ORDER RECEIVED.
--- NOTE | 2020-01-19 16:58 | Progress Note ---
DATE: SUBJECTIVE: Mr. Pompa is doing well. There is no new complaint. REVIEW OF SYSTEMS: Unremarkable. MEDICATIONS: Reviewed. Chart reviewed. PHYSICAL EXAMINATION: GENERAL: He is currently alert and oriented. VITAL SIGNS: Stable, afebrile. HEENT: He is not icteric. NECK: Supple. CHEST: Clear. ABDOMEN: Soft. IMPRESSION: 1. Sepsis, improving. 2. Encephalopathy, improving. PLAN: To continue as ordered. This is a day #11 of antibiotic. We discussed with medical team. MD MATEO Elena/MODL /[id number]
[2020-01-19] MEDS: ATORVASTATIN 40 MG TAB PO SCH (20:06)
[2020-01-19] MEDS: TRAZODONE HCL 50 MG TAB PO SCH (20:06)
[2020-01-20 00:49] VITALS: BP 163/64
[2020-01-20] MEDS: ONDANSETRON HCL INJ 2MG/ML 2ML 2 MG/ML VIAL IV PRN (03:56)
[2020-01-20] MEDS: MORPHINE SULFATE 2 MG/ML SYR 1ML IV PRN ×3 (03:56→14:39)
[2020-01-20 05:28] VITALS: BP 148/63
--- NOTE | 2020-01-20 06:44 | NUR ---
patient is resting in bed.
--- NOTE | 2020-01-20 07:00 | NUR ---
RECEIVED BEDSIDE SHIFT REPORT FROM THE OFF GOING NIGHT NURSE. PATIENT IN STABLE CONDITION, NO S/S OF DISTRESS NOTED. CONTINUOUS PULSE OX APPLIED. TELEMETRY APPLIED. WOUNDS NOTED TO THE RIGHT UPPER THIGH AND GROIN AREA, DRESSING APPLIED C/D/I. IV SITE ASYMPTOTIC AND PATENT, TRANSPARENT DRESSING C/D/I. BED ALARM APPLIED. BED IN LOWEST POSITION AND LOCKED. CALL LIGHT WITHIN REACH.
[2020-01-20] MEDS: INSULIN LISPRO 100 UNIT/1 ML 3ML VIAL SQ SCH ×3 (07:30→16:20)
[2020-01-20 07:55] VITALS: BP 160/68
[2020-01-20 08:01] VITALS: BP 160/68
[2020-01-20] MEDS: BALSAM PERU/CASTOR OIL 60 GM OINT...G. TP SCH (09:00)
[2020-01-20] MEDS: INSULIN GLARGINE 100 UNITS/ML VIAL SQ SCH ×2 (09:00→17:00)
[2020-01-20] MEDS: CITALOPRAM HYDROBROMIDE 20 MG TAB PO SCH (09:02)
[2020-01-20] MEDS: FENOFIBRATE 145 MG TAB PO SCH (09:03)
[2020-01-20] MEDS: BUPROPION HCL SR 150 MG TAB PO SCH (09:03)
[2020-01-20] MEDS: CARVEDILOL 3.125 MG TAB PO SCH ×2 (09:03→17:35)
[2020-01-20] MEDS: DOXYCYCLINE HYCLATE TABLET 100 MG TAB PO SCH (09:04)
[2020-01-20] MEDS: RIVAROXABAN 10 MG TABLET PO SCH (09:04)
[2020-01-20] MEDS: PREDNISONE 20 MG TAB PO SCH (09:05)
[2020-01-20] MEDS: CYANOCOBALAMIN INJ 1,000 MCG/ML VIAL IM SCH (09:07)
[2020-01-20] MEDS: IRON SUCROSE 100 MG in SODIUM CHLORIDE 0.9% 100 ML 100 ML IV SCH (09:08)
--- NOTE | 2020-01-20 11:22 | NUR ---
no complaints. patient stable. no acute issues afebrile 163/ 64 60 aox3 calm speech clear eomi perrl no nuchal rigidity bradycardic abd soft nontender motor 4-/5 reflexes absent no ataxia a/p metabolic encephalopathy,- largely resolved no acute neurological deficits neurologically stable awaiting placement
[2020-01-20 11:38] VITALS: BP 143/60
--- NOTE | 2020-01-20 14:52 | NUR ---
Mr. Pompa is doing well. There is no new complaint. REVIEW OF SYSTEMS: Unremarkable. MEDICATIONS: Reviewed. Chart reviewed. PHYSICAL EXAMINATION: GENERAL: He is currently alert and oriented. VITAL SIGNS: Stable, afebrile. HEENT: He is not icteric. NECK: Supple. CHEST: Clear. ABDOMEN: Soft. IMPRESSION: 1. Sepsis, improving. 2. Encephalopathy, improving. [id number]
[2020-01-20] MEDS ORDERED: DEXTROSE 50% SYRINGE 50 ML IV PRN (16:00)
[2020-01-20 16:13] VITALS: BP 166/58
--- NOTE | 2020-01-20 16:57 | NUR ---
Nutrition Screen Note RD Recommendation for Physician: - Recommend modifying diet to ADA diet as appropriate Plan of Care: RD following, monitoring for tolerance and adequacy Nutrition reason for involvement: Length of stay Primary Diagnose(s): anaphylactic shock, renal insufficiency, intractable back pain PMH: COPD, back pain, obesity, and a history of insulin-dependence as well as atrial fibrillation. Ht: 70 in Wt: 220lb BMI: 31.6 kg/m2 IBW: [address] Assessment: (01/20/20) Follow up. Chart reviewed. It is recorded that pt is consuming 75-100% of meals. Will continue to monitor. (01/13/20) Chart reviewed. Labs and meds reviewed. Pt is a 74 year old male admitted with anaphylactic shock, renal insufficiency, and intractable back pain. It is recorded that pt has been consuming 50-100% of meals. No recent weight loss is evident per weight history in chart. Will continue to monitor. Current Diet: GI soft Malnutrition Evaluation (01/13/20) The patient does not meet criteria for a specified degree of malnutrition at this time. Will re-evaluate at follow-up as appropriate. Diet Education Needs Assessment: RD is available for diet education as needed Nutrition Care Level: low Signed: Hermelinda Escobedo, VINNY, LD
--- NOTE | 2020-01-20 17:49 | Progress Note ---
DATE: SUBJECTIVE: Mr. Wing Pompa has been doing well. There is no new complaint. REVIEW OF SYSTEMS: HEENT: Negative. PULMONARY: Negative. CARDIAC: Negative. PHYSICAL EXAMINATION: GENERAL: He is currently alert, oriented. VITAL SIGNS: Currently, afebrile. HEENT: He is not icteric. NECK: Supple. CHEST: Clear. HEART: S1, S2. No S3, S4, or murmur. ABDOMEN: Soft. Bowel sounds present. No tenderness. EXTREMITIES: No edema. IMPRESSION: 1. Sepsis on admission, resolved. 2. Urinary tract infection, resolved, 14 days of antibiotic as ordered. Discharge planning noted. He is stable from Infectious Disease. No new recommendations. MD MATEO Elena/MODL /[id number]
--- NOTE | 2020-01-20 19:16 | NUR ---
COMPLETED BEDSIDE SHIFT REPORT AND ROUNDING WITH ON COMING NIGHT NURSE. PATIENT IN STABLE CONDITION, NO S/S OF DISTRESS NOTED. CONTINUOUS PULSE OX APPLIED. TELEMETRY APPLIED. WOUNDS NOTED TO THE RIGHT UPPER THIGH AND GROIN AREA, DRESSING APPLIED C/D/I. IV SITE ASYMPTOTIC AND PATENT, TRANSPARENT DRESSING C/D/I. BED ALARM APPLIED. BED IN LOWEST POSITION AND LOCKED, SIDE RAILS X 2, NON SKID SOCKS APPLIED. CALL LIGHT WITHIN REACH.
--- NOTE | 2020-01-20 19:33 | NUR ---
Patient discharged home via private vehicle. [facility] contact information given to patient with written discharge paperwork. Patient instructed to contact [facility] at home. Patient discharged in stable condition, vital signs stable on room air, no s/s of distress of distress at this time.
== END 2020-01-20 20:00 | disposition home health service (06) | DRG 871 ==
LOC: ER 17:45 → ERHOLD 22:57 → ICU 01-08 01:08 → MED/SURG3 01-09 13:47
PROVIDERS: ADMIT Family Medicine; ATTEND Family Medicine
DX: A41.9 Sepsis, unspecified organism (principal); R65.21 Severe sepsis with septic shock; N17.0 Acute kidney failure with tubular necrosis; G92 Toxic encephalopathy; I48.19 Other persistent atrial fibrillation; E87.2 Acidosis; N18.4 Chronic kidney disease, stage 4 (severe); N39.0 Urinary tract infection, site not specified; J44.1 Chronic obstructive pulmonary disease with (acute) exacerbation; D72.823 Leukemoid reaction; D63.8 Anemia in other chronic diseases classified elsewhere; D69.6 Thrombocytopenia, unspecified; Z79.01 Long term (current) use of anticoagulants; K83.8 Other specified diseases of biliary tract; I12.9 Hypertensive chronic kidney disease with stage 1 through stage 4 chronic kidney disease, or unspecified chronic kidney disease; N20.0 Calculus of kidney; Z88.8 Allergy status to other drugs, medicaments and biological substances; R16.0 Hepatomegaly, not elsewhere classified; E78.5 Hyperlipidemia, unspecified; E11.22 Type 2 diabetes mellitus with diabetic chronic kidney disease; R13.10 Dysphagia, unspecified; I25.10 Atherosclerotic heart disease of native coronary artery without angina pectoris; Z95.1 Presence of aortocoronary bypass graft; K59.03 Drug induced constipation; T40.2X5A Adverse effect of other opioids, initial encounter; S70.321A Blister (nonthermal), right thigh, initial encounter; Z95.810 Presence of automatic (implantable) cardiac defibrillator; G89.29 Other chronic pain; M54.9 Dorsalgia, unspecified; R23.8 Other skin changes; T39.8X5A Adverse effect of other nonopioid analgesics and antipyretics, not elsewhere classified, initial encounter; E66.9 Obesity, unspecified; Z68.31 Body mass index [BMI] 31.0-31.9, adult; B96.89 Other specified bacterial agents as the cause of diseases classified elsewhere; Z87.891 Personal history of nicotine dependence; Z86.718 Personal history of other venous thrombosis and embolism; Z86.711 Personal history of pulmonary embolism; Z11.59 Encounter for screening for other viral diseases
CPT/HCPCS: 36415; 36600; 70450; 71045; 72128; 74019; 74176; 76700; 76770; 78227; 80048; 80053; 81001; 82140; 82550; 82553; 82570; 82607; 82728; 82746; 82805; 82948; 83540; 83605; 83690; 83735; 83880; 84100; 84146; 84300; 84443; 84466; 84484; 84550; 85025; 85045; 85610; 85730; 87040; 87086; 87186; 93005; 94660; 94664; 95812; 96361; 99285; A9537; J0171; J0610; J1170; J1200; J1756; J1815; J1817; J1940; J2020; J2270; J2405; J2543; J2930; J3420; J7030; J7040; J7050; J7512; J7799; U0002

== ENCOUNTER → 2020-02-25 | Outpatient (CLI) | payer MEDICARE ==
--- NOTE | 2020-02-25 16:33 | Diagnostic Imaging Report ---
Left hip, 2 views INDICATION: ^OSTEOARTHRITIS Comparison: None available. Discussion: Post surgical changes from open reduction and internal fixation of the left femur are noted with intramedullary brianne fixation of the femoral shaft and screw fixation of the femoral neck. A single transverse fixation screw is identified with the distal femoral diaphysis. No evidence of hardware malfunction or fracture. Significant cortical thickening and osseous callus formation is identified at the level of the femoral neck/intertrochanteric region suggesting healed prior fracture. Mild to moderate left hip joint space narrowing is noted. No grossly displaced fracture of the femur is noted. Scattered vascular calcifications are noted. IMPRESSION: Post surgical changes from intramedullary brianne fixation of the left femoral shaft and screw fixation of the left femoral neck. Negative for evidence of hardware malfunction. Chronic deformity of the left femoral neck/intertrochanteric region with cortical thickening suggestive of healed prior fracture deformity. Signed by: Sin Tesfaye MD on 02/25/2020 4:30 PM
--- NOTE | 2020-02-26 07:25 | Diagnostic Imaging Report ---
Examination: CT LUMBAR SPINE WO CONTRAST History: Low back pain with hip pain. Comparison studies: None Technique: Axial images were obtained through the lumbar spine from T12. Coronal and sagittal reconstructions obtained from the axial data. Dose modulation, iterative reconstruction, and/or weight based adjustment of the mA/kV was utilized to reduce the radiation dose to as low as reasonably achievable. Intravenous contrast: None Findings: The usual 5 non-rib bearing lumbar vertebral bodies are present. Alignment: Normal lordosis. No scoliosis. Soft tissues: Atherosclerotic calcification of the abdominal aorta Paraspinal muscles: Unremarkable. Sacroiliac joints: No degenerative changes. Vertebrae: No fractures, infection or neoplasm. Superior endplate Schmorl's nodes at T12 and L1. Degenerative changes: Anterior osteophytes from T11 through L4. L1-L2: No abnormalities. L2-L3: Diffuse disc bulge and bilateral facet arthropathy. No foraminal or canal stenosis. L3-L4: Diffuse disc bulge and bilateral facet arthropathy result in mild bilateral neural foraminal narrowing and moderate to severe canal stenosis. L4-L5: Diffuse disc bulge and bilateral facet arthropathy result in mild bilateral neural foraminal narrowing. No canal stenosis. L5-S1: Diffuse disc bulge and bilateral facet arthropathy result in mild right and moderate left neural foraminal narrowing. No canal stenosis IMPRESSION: 1. Degenerative changes from L2-L3 through L5-S1 with moderate to severe canal stenosis at L3-L4. 2. Moderate left foraminal narrowing at L5-S1. Signed by: Dr. Tiffany Osorio M.D. on 02/26/2020 7:21 AM
--- NOTE | 2020-02-26 08:31 | Diagnostic Imaging Report ---
TECHNIQUE: Commuted tomography imaging of the LEFT HIP was performed WITHOUT injected contrast. Dose modulation, iterative reconstruction, and/or weight based adjustment of the mA/kV was utilized to reduce the radiation dose to as low as reasonably achievable. HISTORY: Pain COMPARISON: None available. FINDINGS: Remote healed posttraumatic deformity of the left intertrochanteric femur status post fixation with intramedullary brianne. No hardware loosening or failure. Mild mature heterotopic ossification adjacent to the fractures. Mild left hip degenerative arthrosis. Bone island in the left acetabulum. Fat-containing inguinal hernia. Vascular calcifications. No fluid collection or mass. IMPRESSION: Healed fracture deformity of the left intertrochanteric femur status post fixation. No complication. Mild left hip degenerative arthrosis. Signed by: Dr. Robin Andujar M.D. on 02/26/2020 8:27 AM
== END ==
LOC: CT 15:34
PROVIDERS: ATTEND Family Medicine
DX: M54.16 Radiculopathy, lumbar region (principal); M16.12 Unilateral primary osteoarthritis, left hip
CPT/HCPCS: 72131

== ENCOUNTER 2020-07-10 16:16 | Emergency (ER) | payer MEDICARE, OTHER ==
[~2020-07-10] VITALS: Ht 177.8 cm; Wt 99.8 kg
[2020-07-10] MEDS ORDERED: AZITHROMYCIN 500MG/NS 250 ML 250 ML IV STA (16:27)
[2020-07-10 17:09] LABS: BASOPHILS % 0.3 % (0.0-1.0); EOSINOPHILS # (AUTO) 0.2 (0.0-0.4); EOSINOPHILS % 1.9 % (0.0-6.0); HEMATOCRIT 39.4 % (38.2-49.6); HEMOGLOBIN 13.2 g/dL (14.0-18.0); LYMPHOCYTES % 9.1 % (18.0-39.1); MEAN CORPUSCULAR HEMOGLOBIN 28.8 pg (28-32); MEAN CORPUSCULAR HGB CONC 33.5 g/dL (31-35); MEAN CORPUSCULAR VOLUME 85.8 fL (81-99); MONOCYTES # (AUTO) 0.8 (0.2-0.8); MONOCYTES % 7.3 % (4.4-11.3); NEUTROPHILS # (AUTO) 8.5 (2.1-6.9); PLATELET COUNT 202 x10e3/uL (140-360); RED BLOOD COUNT 4.59 x10e6/uL (4.3-5.7); RED CELL DISTRIBUTION WIDTH 14.3 % (11.7-14.4)
[2020-07-10 17:29] LABS: ALBUMIN 3.9 g/dL (3.5-5.0); ALBUMIN/GLOBULIN RATIO 1.1 (0.8-2.0); ANION GAP 18.8 mmol/L (8-16); CALCIUM 9.6 mg/dL (8.4-10.2); CREATININE, SERUM 1.97 mg/dL (0.72-1.25); POTASSIUM 4.8 mmol/L (3.5-5.1)
[2020-07-10 17:54] LABS: CREATINE KINASE MB 1.8 ng/mL (0-5.0)
[2020-07-10] MEDS ORDERED: MORPHINE SULFATE INJ 4 MG/ML INJ 1ML IV STA (18:32)
[2020-07-10] MEDS ORDERED: ONDANSETRON HCL INJ 2MG/ML 2ML 2 MG/ML VIAL IV STA (18:32)
[2020-07-10 18:59] LABS: B-TYPE NATRIURETIC PEPTIDE2 257.1 pg/mL (0-100)
== END 2020-07-10 19:37 | disposition home or self-care (01) ==
LOC: ER 16:28
DX: J06.9 Acute upper respiratory infection, unspecified (principal); R05 Cough; N28.9 Disorder of kidney and ureter, unspecified; I50.9 Heart failure, unspecified; E11.65 Type 2 diabetes mellitus with hyperglycemia; I10 Essential (primary) hypertension; E78.5 Hyperlipidemia, unspecified; Z11.52 Encounter for screening for COVID-19; Z95.810 Presence of automatic (implantable) cardiac defibrillator
CPT/HCPCS: 36415; 71045; 80053; 82550; 82553; 83605; 83880; 84484; 85025; 87040; 93005; 99284; J0456; J2270; J2405; U0002

== ENCOUNTER 2020-10-20 16:05 | Inpatient (IN) | payer MEDICARE ==
[~2020-10-20] VITALS: Ht 177.8 cm; Wt 99.8 kg
[2020-10-20] MEDS ORDERED: METHYLPREDNISOLONE SOD SUCC 125 MG/2ML VIAL IV ONE (16:30)
[2020-10-20] MEDS ORDERED: ALBUTEROL/IPRATROPIUM 3 ML NEB NEB ONE (16:30)
[2020-10-20 16:59] LABS: BASOPHILS % 0.5 % (0.0-1.0); EOSINOPHILS # (AUTO) 0.2 (0.0-0.4); EOSINOPHILS % 2.1 % (0.0-6.0); HEMATOCRIT 38.8 % (38.2-49.6); HEMOGLOBIN 12.6 g/dL (14.0-18.0); LYMPHOCYTES # (AUTO) 1.4 (1.0-3.2); LYMPHOCYTES % 17.4 % (18.0-39.1); MEAN CORPUSCULAR HEMOGLOBIN 28.1 pg (28-32); MEAN CORPUSCULAR HGB CONC 32.5 g/dL (31-35); MEAN CORPUSCULAR VOLUME 86.4 fL (81-99); MONOCYTES # (AUTO) 0.6 (0.2-0.8); MONOCYTES % 6.9 % (4.4-11.3); NEUTROPHILS # (AUTO) 5.9 (2.1-6.9); NEUTROPHILS % 72.4 % (38.7-80.0); PLATELET COUNT 264 x10e3/uL (140-360); RED BLOOD COUNT 4.49 x10e6/uL (4.3-5.7); RED CELL DISTRIBUTION WIDTH 15.3 % (11.7-14.4)
[2020-10-20 17:12] LABS: INR 1.18; PROTHROMBIN TIME 15.7 seconds (11.9-14.5)
[2020-10-20 17:13] LABS: PARTIAL THROMBOPLASTIN TIME 33.7 seconds (23.8-35.5)
[2020-10-20 17:19] LABS: ALANINE AMINOTRANSFERASE 20 IU/L (0-55); ALBUMIN 3.6 g/dL (3.5-5.0); ALBUMIN/GLOBULIN RATIO 0.9 (0.8-2.0); ALKALINE PHOSPHATASE 45 IU/L (40-150); ANION GAP 17.8 mmol/L (8-16); BLOOD UREA NITROGEN 21 mg/dL (7-26); BUN/CREATININE RATIO 19 (6-25); CALCIUM 9.5 mg/dL (8.4-10.2); CARBON DIOXIDE 24 mmol/L (22-29); CHLORIDE 110 mmol/L (98-107); CREATINE KINASE 31 IU/L (30-200); CREATININE, SERUM 1.12 mg/dL (0.72-1.25); EST GLOMERULAR FILTRATION RATE > 60 ML/MIN (60-); GLUCOSE 63 mg/dL (74-118); POTASSIUM 3.8 mmol/L (3.5-5.1); SODIUM 148 mmol/L (136-145)
[2020-10-20] MEDS ORDERED: FUROSEMIDE INJ 10 MG/ML 4 ML VIAL IV NR (19:15)
[2020-10-20] MEDS ORDERED: DEXTROSE 50% SYRINGE 50 ML IV PRN (19:30)
[2020-10-20] MEDS ORDERED: SODIUM CHLORIDE FLUSH 10 ML SYR INJ PRN (19:30)
[2020-10-20] MEDS ORDERED: OXYCODONE PO (19:30)
[2020-10-20] MEDS ORDERED: OXYCODONE HCL IR 5 MG TAB PO PRN (19:45)
[2020-10-20] MEDS ORDERED: PERCOCET 7.5-31 EACH PO (20:24)
[2020-10-20] MEDS: OXYCODONE/ACETAMINOPHEN 5-325 1 EACH TABLET PO PRN ×2 (20:29→21:00)
[2020-10-20] MEDS: INSULIN REGULAR, HUMAN 100 UNIT/1 ML 3ML VIAL SQ SCH (22:12)
[2020-10-20] MEDS: ALBUTEROL/IPRATROPIUM 3 ML NEB NEB SCH (22:50)
[2020-10-21] VITALS (7 sets, daily range): BP systolic 135–161; BP diastolic 51–71
[2020-10-21] MEDS: ALBUTEROL/IPRATROPIUM 3 ML NEB NEB SCH ×5 (00:25→19:45)
[2020-10-21 01:46] LABS: CREATINE KINASE MB 1.4 ng/mL (0-5.0)
[2020-10-21] MEDS: OXYCODONE/ACETAMINOPHEN 5-325 1 EACH TABLET PO PRN (05:27)
[2020-10-21 05:32] LABS: HEMATOCRIT 31.9 % (38.2-49.6); HEMOGLOBIN 10.5 g/dL (14.0-18.0); LYMPHOCYTES # (AUTO) 0.4 (1.0-3.2); LYMPHOCYTES % 8.1 % (18.0-39.1); MEAN CORPUSCULAR HGB CONC 32.9 g/dL (31-35); MEAN CORPUSCULAR VOLUME 85.1 fL (81-99); MONOCYTES # (AUTO) 0.1 (0.2-0.8); MONOCYTES % 1.3 % (4.4-11.3); NEUTROPHILS # (AUTO) 4.7 (2.1-6.9); PLATELET COUNT 204 x10e3/uL (140-360); RED BLOOD COUNT 3.75 x10e6/uL (4.3-5.7); RED CELL DISTRIBUTION WIDTH 15.1 % (11.7-14.4)
[2020-10-21 05:53] LABS: ALBUMIN 2.8 g/dL (3.5-5.0); ALBUMIN/GLOBULIN RATIO 0.8 (0.8-2.0); ANION GAP 14.9 mmol/L (8-16); CALCIUM 8.6 mg/dL (8.4-10.2); CREATININE, SERUM 1.19 mg/dL (0.72-1.25); POTASSIUM 3.9 mmol/L (3.5-5.1)
[2020-10-21] MEDS ORDERED: METHOCARBAMOL750 MG PO (06:40)
[2020-10-21] MEDS ORDERED: BUPROPION XL150 MG PO (06:41)
[2020-10-21] MEDS ORDERED: TRELEGY ELLIPT1 EAC1 INH (06:41)
[2020-10-21] MEDS ORDERED: AMLODIPINE BESY10 MG PO (06:44)
[2020-10-21] MEDS ORDERED: ROPINIROLE HCL1 MG PO (06:44)
[2020-10-21] MEDS ORDERED: LEVEMIR FL100 UNIT/1 SQ (06:44)
[2020-10-21] MEDS ORDERED: DIVALPROEX SOD250 M1 PO (06:44)
[2020-10-21] MEDS ORDERED: TRAZODONE HCL100 MG PO (06:45)
[2020-10-21] MEDS ORDERED: ALBUTEROL SULFATE HFA 8GM INHALATION AEROSOL INH PRN (06:45)
[2020-10-21] MEDS ORDERED: LISINOPRIL2.5 MG PO (06:47)
[2020-10-21] MEDS ORDERED: XARELTO20 MG PO (06:47)
[2020-10-21] MEDS ORDERED: ESCITALOPRAM OX10 MG PO (06:51)
[2020-10-21] MEDS ORDERED: NON-FORMULARY MEDICATION (Oxycodone Hcl/Acetaminophen (Percocet 7.5-325 Mg Tablet) 1 TAB) PO PRN (07:00)
[2020-10-21] MEDS ORDERED: MORPHINE SULFATE INJ 2 MG/ML SYR IV PRN (07:15)
[2020-10-21] MEDS: VILANTER INH SCH (07:59)
[2020-10-21] MEDS: FLUTICASONE INH SCH (07:59)
[2020-10-21] MEDS: [UNRECOGNIZED DRUG - OTHER] INH SCH (07:59)
[2020-10-21] MEDS: INSULIN REGULAR, HUMAN 100 UNIT/1 ML 3ML VIAL SQ SCH ×4 (08:13→20:09)
[2020-10-21] MEDS: CITALOPRAM HYDROBROMIDE 20 MG TAB PO SCH (08:14)
[2020-10-21] MEDS: CARVEDILOL 3.125 MG TAB PO SCH ×2 (08:14→17:01)
[2020-10-21] MEDS: LISINOPRIL 2.5 MG TAB PO SCH (08:14)
[2020-10-21] MEDS: RIVAROXABAN 20 MG TABLET PO SCH (08:14)
[2020-10-21] MEDS: BUPROPION HCL SR 150 MG TAB PO SCH (08:21)
[2020-10-21] MEDS: INSULIN LISPRO 100 UNIT/1 ML 3ML VIAL SQ SCH ×3 (08:21→15:51)
[2020-10-21] MEDS: FUROSEMIDE INJ 10 MG/ML 4 ML VIAL IV SCH ×2 (08:21→17:01)
[2020-10-21] MEDS: AMLODIPINE BESYLATE 10 MG TAB PO SCH (08:22)
[2020-10-21] MEDS: FENOFIBRATE 145 MG TAB PO SCH (08:22)
[2020-10-21] MEDS ORDERED: HYDROMORPHONE 1MG/1ML INJ IV STA (08:43)
[2020-10-21] MEDS ORDERED: HYDROMORPHONE 2MG/ML 2 MG/ML ML ONE (08:47)
[2020-10-21] MEDS ORDERED: INSULIN GLARGINE 100 UNITS/ML VIAL SQ SCH (09:00)
[2020-10-21] MEDS ORDERED: RIVAROXABAN 20 MG TABLET PO SCH (09:00)
[2020-10-21] MEDS ORDERED: ESCITALOPRAM OXALATE 10 MG TAB PO SCH (09:00)
[2020-10-21] MEDS ORDERED: INSULIN DETEMIR 55 UNIT SQ SCH (09:00)
[2020-10-21 10:13] LABS: CLARITY,URINE CLEAR (CLEAR); COLOR,URINE YELLOW (YELLOW); KETONES,URINE NEGATIVE (NEGATIVE); LEUKOCYTE ESTERASE ,URINE NEGATIVE (NEGATIVE); NITRITE,URINE NEGATIVE (NEGATIVE); PROTEIN,URINE DIPSTICK TRACE (NEGATIVE); URINE UROBILINOGEN 0.2 mg/dL (0.2 - 1)
[2020-10-21 10:36] LABS: BACTERIA,URINE RARE /HPF; EPITHELIAL CELLS,URINE FEW /LPF; WBC,URINE (MAN) 0-5 /HPF (0-5)
[2020-10-21 11:20] LABS: CREATINE KINASE MB 1.4 ng/mL (0-5.0)
[2020-10-21] MEDS: HYDROMORPHONE 1MG/1ML INJ IV PRN ×3 (13:07→21:00)
[2020-10-21] MEDS: INSULIN GLARGINE 100 UNITS/ML VIAL SQ SCH ×2 (13:07→20:10)
[2020-10-21] MEDS ORDERED: MORPHINE SULFATE 30 MG TAB ER PO SCH (14:00)
[2020-10-21 17:58] LABS: CREATINE KINASE MB 1.5 ng/mL (0-5.0)
[2020-10-21] MEDS: ROPINIROLE HCL 1 MG TAB PO SCH (20:08)
[2020-10-21] MEDS: ATORVASTATIN 40 MG TAB PO SCH (20:08)
[2020-10-21] MEDS: DIVALPROEX SODIUM PO SCH (20:14)
[2020-10-22] VITALS (8 sets, daily range): BP systolic 119–150; BP diastolic 58–73
[2020-10-22] MEDS: ALBUTEROL/IPRATROPIUM 3 ML NEB NEB SCH ×6 (00:25→20:30)
[2020-10-22] MEDS: HYDROMORPHONE 1MG/1ML INJ IV PRN ×6 (01:04→21:19)
[2020-10-22] MEDS: INSULIN REGULAR, HUMAN 100 UNIT/1 ML 3ML VIAL SQ SCH ×4 (07:30→21:00)
[2020-10-22] MEDS: INSULIN LISPRO 100 UNIT/1 ML 3ML VIAL SQ SCH ×3 (07:30→16:30)
[2020-10-22 08:00] LABS: BLOOD UREA NITROGEN 36 mg/dL (7-26); BUN/CREATININE RATIO 31 (6-25); CALCIUM 8.7 mg/dL (8.4-10.2); CARBON DIOXIDE 28 mmol/L (22-29); CHLORIDE 105 mmol/L (98-107); CREATININE, SERUM 1.16 mg/dL (0.72-1.25); EST GLOMERULAR FILTRATION RATE > 60 ML/MIN (60-); GLUCOSE 103 mg/dL (74-118); MAGNESIUM 1.8 MG/DL (1.3-2.1); SODIUM 141 mmol/L (136-145)
[2020-10-22] MEDS: INSULIN GLARGINE 100 UNITS/ML VIAL SQ SCH ×2 (08:32→21:00)
[2020-10-22] MEDS: FENOFIBRATE 145 MG TAB PO SCH (08:37)
[2020-10-22] MEDS: AMLODIPINE BESYLATE 10 MG TAB PO SCH (08:37)
[2020-10-22] MEDS: FUROSEMIDE INJ 10 MG/ML 4 ML VIAL IV SCH ×2 (08:38→17:12)
[2020-10-22] MEDS: CITALOPRAM HYDROBROMIDE 20 MG TAB PO SCH (08:38)
[2020-10-22] MEDS: CARVEDILOL 3.125 MG TAB PO SCH ×2 (08:38→17:13)
[2020-10-22] MEDS: LISINOPRIL 2.5 MG TAB PO SCH (08:38)
[2020-10-22] MEDS: BUPROPION HCL SR 150 MG TAB PO SCH (08:39)
[2020-10-22] MEDS: RIVAROXABAN 20 MG TABLET PO SCH (08:39)
[2020-10-22] MEDS: VILANTER INH SCH (08:40)
[2020-10-22] MEDS: [UNRECOGNIZED DRUG - OTHER] INH SCH (08:40)
[2020-10-22] MEDS: FLUTICASONE INH SCH (08:40)
[2020-10-22] MEDS ORDERED: BISACODYL 5 MG TAB EC PO PRN (10:30)
[2020-10-22] MEDS: ROPINIROLE HCL 1 MG TAB PO SCH (20:30)
[2020-10-22] MEDS: ATORVASTATIN 40 MG TAB PO SCH (20:30)
[2020-10-22] MEDS: DIVALPROEX SODIUM PO SCH (21:00)
[2020-10-23] VITALS (8 sets, daily range): BP systolic 123–166; BP diastolic 60–66
[2020-10-23] MEDS: ALBUTEROL/IPRATROPIUM 3 ML NEB NEB SCH ×6 (00:05→20:25)
[2020-10-23] MEDS: HYDROMORPHONE 1MG/1ML INJ IV PRN ×5 (01:19→21:44)
[2020-10-23 05:29] LABS: ANION GAP 14.1 mmol/L (8-16); CALCIUM 8.5 mg/dL (8.4-10.2); CREATININE, SERUM 1.32 mg/dL (0.72-1.25); MAGNESIUM 1.7 MG/DL (1.3-2.1); POTASSIUM 4.1 mmol/L (3.5-5.1)
[2020-10-23] MEDS: VILANTER INH SCH (09:00)
[2020-10-23] MEDS: [UNRECOGNIZED DRUG - OTHER] INH SCH (09:00)
[2020-10-23] MEDS: FLUTICASONE INH SCH (09:00)
[2020-10-23] MEDS: BUPROPION HCL SR 150 MG TAB PO SCH (09:09)
[2020-10-23] MEDS: CITALOPRAM HYDROBROMIDE 20 MG TAB PO SCH (09:09)
[2020-10-23] MEDS: RIVAROXABAN 20 MG TABLET PO SCH (09:09)
[2020-10-23] MEDS: LISINOPRIL 2.5 MG TAB PO SCH (09:09)
[2020-10-23] MEDS: AMLODIPINE BESYLATE 10 MG TAB PO SCH (09:09)
[2020-10-23] MEDS: FUROSEMIDE INJ 10 MG/ML 4 ML VIAL IV SCH ×2 (09:09→17:16)
[2020-10-23] MEDS: FENOFIBRATE 145 MG TAB PO SCH (09:09)
[2020-10-23] MEDS: CARVEDILOL 3.125 MG TAB PO SCH ×2 (09:09→17:16)
[2020-10-23] MEDS: INSULIN REGULAR, HUMAN 100 UNIT/1 ML 3ML VIAL SQ SCH ×4 (09:15→21:00)
[2020-10-23] MEDS: INSULIN LISPRO 100 UNIT/1 ML 3ML VIAL SQ SCH ×3 (09:16→17:32)
[2020-10-23] MEDS: INSULIN GLARGINE 100 UNITS/ML VIAL SQ SCH ×2 (09:16→21:00)
[2020-10-23] MEDS: DIVALPROEX SODIUM PO SCH (21:00)
[2020-10-23] MEDS: ATORVASTATIN 40 MG TAB PO SCH (21:41)
[2020-10-23] MEDS: ROPINIROLE HCL 1 MG TAB PO SCH (21:41)
[2020-10-24 00:36] VITALS: BP 112/72
[2020-10-24] MEDS: HYDROMORPHONE 1MG/1ML INJ IV PRN (02:22)
[2020-10-24] MEDS: ALBUTEROL/IPRATROPIUM 3 ML NEB NEB SCH (03:20)
[2020-10-24 05:26] VITALS: BP 118/75
[2020-10-24] MEDS ORDERED: HYDROCODONE/APAP 5MG-325MG TAB PO PRN (05:45)
[2020-10-24 08:00] VITALS: BP 139/64
[2020-10-24] MEDS: RIVAROXABAN 20 MG TABLET PO SCH (08:38)
[2020-10-24] MEDS: BUPROPION HCL SR 150 MG TAB PO SCH (08:39)
[2020-10-24] MEDS: AMLODIPINE BESYLATE 10 MG TAB PO SCH (08:39)
[2020-10-24] MEDS: CITALOPRAM HYDROBROMIDE 20 MG TAB PO SCH (08:39)
[2020-10-24] MEDS: FENOFIBRATE 145 MG TAB PO SCH (08:39)
[2020-10-24] MEDS: CARVEDILOL 3.125 MG TAB PO SCH (08:39)
[2020-10-24] MEDS: LISINOPRIL 2.5 MG TAB PO SCH (08:40)
[2020-10-24] MEDS: FUROSEMIDE INJ 10 MG/ML 4 ML VIAL IV SCH (08:44)
[2020-10-24 08:45] VITALS: BP 139/64
[2020-10-24] MEDS: [UNRECOGNIZED DRUG - OTHER] INH SCH (09:00)
[2020-10-24] MEDS: INSULIN GLARGINE 100 UNITS/ML VIAL SQ SCH (09:00)
[2020-10-24] MEDS: FLUTICASONE INH SCH (09:00)
[2020-10-24] MEDS: VILANTER INH SCH (09:00)
[2020-10-24] MEDS: INSULIN REGULAR, HUMAN 100 UNIT/1 ML 3ML VIAL SQ SCH ×2 (09:38→14:04)
[2020-10-24 11:18] VITALS: BP 143/68
[2020-10-24 15:24] VITALS: BP 148/58
== END 2020-10-24 16:34 | disposition home or self-care (01) | DRG 291 ==
LOC: ER 16:40 → ERHOLD 19:45 → IMCU 10-21 11:41 → OBSVTOIN 10-21 15:52 → MED/SURG 10-22 14:04
PROVIDERS: ADMIT Family Medicine; ATTEND Family Medicine
DX: I13.0 Hypertensive heart and chronic kidney disease with heart failure and stage 1 through stage 4 chronic kidney disease, or unspecified chronic kidney disease (principal); J96.00 Acute respiratory failure, unspecified whether with hypoxia or hypercapnia; I50.33 Acute on chronic diastolic (congestive) heart failure; J44.1 Chronic obstructive pulmonary disease with (acute) exacerbation; E11.21 Type 2 diabetes mellitus with diabetic nephropathy; Z79.4 Long term (current) use of insulin; E66.01 Morbid (severe) obesity due to excess calories; Z68.31 Body mass index [BMI] 31.0-31.9, adult; E11.40 Type 2 diabetes mellitus with diabetic neuropathy, unspecified; Z79.899 Other long term (current) drug therapy; I25.10 Atherosclerotic heart disease of native coronary artery without angina pectoris; Z95.1 Presence of aortocoronary bypass graft; Z95.0 Presence of cardiac pacemaker; F17.210 Nicotine dependence, cigarettes, uncomplicated; Z86.718 Personal history of other venous thrombosis and embolism; Z79.01 Long term (current) use of anticoagulants; N40.0 Benign prostatic hyperplasia without lower urinary tract symptoms; F41.9 Anxiety disorder, unspecified; E11.22 Type 2 diabetes mellitus with diabetic chronic kidney disease; N18.30 Chronic kidney disease, stage 3 unspecified; I48.0 Paroxysmal atrial fibrillation; Z86.711 Personal history of pulmonary embolism; I42.9 Cardiomyopathy, unspecified
CPT/HCPCS: 36415; 71045; 80048; 80053; 81001; 82550; 82553; 82948; 83735; 83880; 84484; 85025; 85610; 85730; 93005; 93306; 94640; 99285; G0378; J1170; J1815; J1817; J1940; J2270; J2930; J7799; U0002

== ENCOUNTER 2021-04-14 14:18 | Inpatient (IN) | payer MEDICARE ==
[~2021-04-14] VITALS: Ht 172.7 cm; Wt 96.6 kg
[~2021-04-14 14:18] MED LIST changes: +BUPROPION XL150 MG PO; +DIVALPROEX SOD250 M1 PO; +ESCITALOPRAM OX10 MG PO; +LEVEMIR FL100 UNIT/1 SQ; +LISINOPRIL2.5 MG PO; +METHOCARBAMOL750 MG PO; +OXYCODONE PO; +PERCOCET 7.5-31 EACH PO; +TRAZODONE HCL100 MG PO; +TRELEGY ELLIPT1 EAC1 INH; +XARELTO20 MG PO
[2021-04-14 16:00] VITALS: BP 122/40
[2021-04-14] MEDS ORDERED: ONDANSETRON HCL INJ 2MG/ML 2ML 2 MG/ML VIAL IV PRN (16:15)
[2021-04-14] MEDS ORDERED: HYDROMORPHONE 1MG/1ML INJ IV PRN (16:15)
[2021-04-14 17:37] LABS: BASOPHILS % 0.5 % (0.0-1.0); EOSINOPHILS # (AUTO) 0.5 (0.0-0.4); EOSINOPHILS % 5.5 % (0.0-6.0); LYMPHOCYTES # (AUTO) 1.1 (1.0-3.2); MEAN CORPUSCULAR HEMOGLOBIN 27.3 pg (28-32); MEAN CORPUSCULAR HGB CONC 31.3 g/dL (31-35); MEAN CORPUSCULAR VOLUME 87.4 fL (81-99); MONOCYTES # (AUTO) 0.7 (0.2-0.8); MONOCYTES % 7.9 % (4.4-11.3); NEUTROPHILS % 72.7 % (38.7-80.0); PLATELET COUNT 195 x10e3/uL (140-360); RED BLOOD COUNT 3.66 x10e6/uL (4.3-5.7); RED CELL DISTRIBUTION WIDTH 15.6 % (11.7-14.4)
[2021-04-14 17:53] LABS: ALBUMIN 2.9 g/dL (3.5-5.0); ALBUMIN/GLOBULIN RATIO 0.8 (0.8-2.0); ANION GAP 15.7 mmol/L (8-16); CALCIUM 8.6 mg/dL (8.4-10.2); CREATININE, SERUM 1.77 mg/dL (0.72-1.25); POTASSIUM 4.7 mmol/L (3.5-5.1)
[2021-04-14 18:09] LABS: CREATINE KINASE MB 1.8 ng/mL (0-5.0)
[2021-04-14] MEDS ORDERED: DEXTROSE 50% SYRINGE 50 ML IV PRN (18:45)
[2021-04-14] MEDS: CEFTRIAXONE 1 GM in SODIUM CHLORIDE 0.9% 50ML 50 ML IV SCH (18:52)
[2021-04-14] MEDS ORDERED: METHYLPREDNISOLONE SOD SUCC 40 MG/ML VIAL 1ML IV ONE (19:05)
[2021-04-14] MEDS ORDERED: CYMBALTA20 MG PO (19:19)
[2021-04-14] MEDS ORDERED: FLOMAX0.4 MG PO (19:19)
[2021-04-14] MEDS ORDERED: LYRICA50 MG PO (19:19)
[2021-04-14 20:00] VITALS: BP 117/46
[2021-04-14] MEDS: TRAZODONE HCL 50 MG TAB PO SCH (21:00)
[2021-04-14] MEDS: ROPINIROLE HCL 1 MG TAB PO SCH (21:00)
[2021-04-14] MEDS: DIVALPROEX SODIUM 125 MG TABDR...ER PO SCH (21:00)
[2021-04-14] MEDS: INSULIN REGULAR, HUMAN 100 UNIT/1 ML SQ SCH (21:00)
[2021-04-14] MEDS: ATORVASTATIN 40 MG TAB PO SCH (21:00)
[2021-04-14] MEDS: HYDROMORPHONE 1MG/1ML INJ IV PRN (21:51)
[2021-04-15] VITALS (7 sets, daily range): BP systolic 92–142; BP diastolic 45–70
[2021-04-15] MEDS: ALBUTEROL/IPRATROPIUM 3 ML NEB NEB SCH ×6 (01:05→23:00)
[2021-04-15] MEDS: HYDROMORPHONE 1MG/1ML INJ IV PRN ×5 (01:15→22:08)
[2021-04-15 06:00] LABS: BASOPHILS % 0.1 % (0.0-1.0); EOSINOPHILS % 0.1 % (0.0-6.0); HEMATOCRIT 30.2 % (38.2-49.6); HEMOGLOBIN 9.8 g/dL (14.0-18.0); LYMPHOCYTES # (AUTO) 0.4 (1.0-3.2); LYMPHOCYTES % 5.4 % (18.0-39.1); MEAN CORPUSCULAR HEMOGLOBIN 27.4 pg (28-32); MEAN CORPUSCULAR HGB CONC 32.5 g/dL (31-35); MEAN CORPUSCULAR VOLUME 84.4 fL (81-99); MONOCYTES # (AUTO) 0.1 (0.2-0.8); MONOCYTES % 1.2 % (4.4-11.3); NEUTROPHILS # (AUTO) 6.2 (2.1-6.9); NEUTROPHILS % 92.6 % (38.7-80.0); PLATELET COUNT 190 x10e3/uL (140-360); RED BLOOD COUNT 3.58 x10e6/uL (4.3-5.7); RED CELL DISTRIBUTION WIDTH 15.2 % (11.7-14.4)
[2021-04-15 06:18] LABS: ALBUMIN 2.9 g/dL (3.5-5.0); ALBUMIN/GLOBULIN RATIO 0.8 (0.8-2.0); ANION GAP 15.6 mmol/L (8-16); CALCIUM 8.6 mg/dL (8.4-10.2); CREATININE, SERUM 1.9 mg/dL (0.72-1.25); POTASSIUM 5.6 mmol/L (3.5-5.1)
[2021-04-15] MEDS: FENOFIBRATE 145 MG TAB PO SCH (08:27)
[2021-04-15] MEDS: CITALOPRAM HYDROBROMIDE 20 MG TAB PO SCH (08:27)
[2021-04-15] MEDS: PREGABALIN 50 MG CAP PO SCH ×2 (08:27→16:36)
[2021-04-15] MEDS: BUMETANIDE 1 MG TAB PO SCH ×2 (08:27→16:33)
[2021-04-15] MEDS: DULOXETINE HCL 30 MG DELAYED RELEASE PO SCH (08:27)
[2021-04-15] MEDS: RIVAROXABAN 20 MG TABLET PO SCH (08:28)
[2021-04-15] MEDS: INSULIN REGULAR, HUMAN 100 UNIT/1 ML SQ SCH ×4 (08:30→21:40)
[2021-04-15] MEDS ORDERED: DEXTROSE 50% SYRINGE 50 ML IV PRN (08:45)
[2021-04-15] MEDS ORDERED: INSULIN GLARGINE 100 UNITS/ML VIAL SQ SCH (09:00)
[2021-04-15] MEDS: CARVEDILOL 3.125 MG TAB PO SCH ×2 (09:07→16:57)
[2021-04-15 14:02] LABS: CREATINE KINASE MB 2.1 ng/mL (0-5.0)
[2021-04-15] MEDS: METHYLPREDNISOLONE SOD SUCC 40 MG/ML VIAL 1ML IV SCH (16:32)
[2021-04-15] MEDS: CEFTRIAXONE 1 GM in SODIUM CHLORIDE 0.9% 50ML 50 ML IV SCH (16:37)
[2021-04-15] MEDS: INSULIN GLARGINE 100 UNITS/ML VIAL SQ SCH (17:00)
[2021-04-15] MEDS: ATORVASTATIN 40 MG TAB PO SCH (21:26)
[2021-04-15] MEDS: ROPINIROLE HCL 1 MG TAB PO SCH (21:26)
[2021-04-15] MEDS: TRAZODONE HCL 50 MG TAB PO SCH (21:26)
[2021-04-15] MEDS: DIVALPROEX SODIUM 125 MG TABDR...ER PO SCH (21:26)
[2021-04-16] VITALS: BP 136/81
[2021-04-16] MEDS: ALBUTEROL/IPRATROPIUM 3 ML NEB NEB SCH ×4 (03:00→15:14)
[2021-04-16] MEDS: HYDROMORPHONE 1MG/1ML INJ IV PRN ×3 (03:20→12:35)
[2021-04-16 04:00] VITALS: BP 135/76
[2021-04-16] MEDS ORDERED: LACTULOSE SYRUP 20 GM/30 ML UDC PO ONE (04:00)
[2021-04-16] MEDS: METHYLPREDNISOLONE SOD SUCC 40 MG/ML VIAL 1ML IV SCH (05:06)
[2021-04-16 05:15] LABS: BASOPHILS % 0.1 % (0.0-1.0); HEMATOCRIT 30.5 % (38.2-49.6); HEMOGLOBIN 10.2 g/dL (14.0-18.0); LYMPHOCYTES # (AUTO) 0.6 (1.0-3.2); MEAN CORPUSCULAR HEMOGLOBIN 27.4 pg (28-32); MEAN CORPUSCULAR HGB CONC 33.4 g/dL (31-35); MONOCYTES # (AUTO) 0.5 (0.2-0.8); MONOCYTES % 4.6 % (4.4-11.3); NEUTROPHILS # (AUTO) 8.8 (2.1-6.9); NEUTROPHILS % 88.5 % (38.7-80.0); PLATELET COUNT 202 x10e3/uL (140-360); RED BLOOD COUNT 3.72 x10e6/uL (4.3-5.7); RED CELL DISTRIBUTION WIDTH 15.1 % (11.7-14.4)
[2021-04-16 05:44] LABS: ANION GAP 15.8 mmol/L (8-16); CALCIUM 9.5 mg/dL (8.4-10.2); CREATININE, SERUM 1.49 mg/dL (0.72-1.25); POTASSIUM 4.8 mmol/L (3.5-5.1)
[2021-04-16] MEDS: INSULIN REGULAR, HUMAN 100 UNIT/1 ML SQ SCH ×2 (07:30→11:30)
[2021-04-16 08:00] VITALS: BP 138/58
[2021-04-16] MEDS: CITALOPRAM HYDROBROMIDE 20 MG TAB PO SCH (08:25)
[2021-04-16] MEDS: DULOXETINE HCL 30 MG DELAYED RELEASE PO SCH (08:25)
[2021-04-16] MEDS: PREGABALIN 50 MG CAP PO SCH (08:25)
[2021-04-16] MEDS: BUMETANIDE 1 MG TAB PO SCH (08:25)
[2021-04-16] MEDS: CARVEDILOL 3.125 MG TAB PO SCH (08:26)
[2021-04-16] MEDS: RIVAROXABAN 20 MG TABLET PO SCH (08:33)
[2021-04-16] MEDS: FENOFIBRATE 145 MG TAB PO SCH (08:33)
[2021-04-16] MEDS: INSULIN GLARGINE 100 UNITS/ML VIAL SQ SCH (09:53)
[2021-04-16] MEDS ORDERED: ONDANSETRON HCL 4 MG ORAL DISINTEGRATING TAB PO PRN (13:00)
[2021-04-16 16:00] VITALS: BP 143/54
[2021-04-17] MEDS ORDERED: PANTOPRAZOLE SOD 40 MG TABEC PO SCH (07:30)
== END 2021-04-16 16:49 | disposition home or self-care (01) | DRG 191 ==
LOC: MED/SURG3 15:22
PROVIDERS: ADMIT Family Medicine; ATTEND Family Medicine
DX: J44.1 Chronic obstructive pulmonary disease with (acute) exacerbation (principal); I48.20 Chronic atrial fibrillation, unspecified; R09.02 Hypoxemia; E11.22 Type 2 diabetes mellitus with diabetic chronic kidney disease; I12.9 Hypertensive chronic kidney disease with stage 1 through stage 4 chronic kidney disease, or unspecified chronic kidney disease; N18.9 Chronic kidney disease, unspecified; Z95.1 Presence of aortocoronary bypass graft; Z95.5 Presence of coronary angioplasty implant and graft; Z20.822 Contact with and (suspected) exposure to COVID-19; Z79.4 Long term (current) use of insulin
CPT/HCPCS: 36415; 71045; 71250; 78580; 80048; 80053; 82550; 82553; 82948; 83880; 84484; 85025; 85379; 93306; 93970; 94640; 96372; 99251; A9540; J0696; J1170; J1815; J1817; J2405; J2920; U0002

== ENCOUNTER 2022-02-08 15:49 | Inpatient (IN) | payer MEDICARE ==
[~2022-02-08] VITALS: Ht 172.7 cm; Wt 98.4 kg
[~2022-02-08 15:49] MED LIST changes: +CYMBALTA20 MG PO; +LYRICA50 MG PO; +PREDNISONE10 MG PO; +STIOLTO RESPIMAT4 GM IH
[2022-02-08 16:52] LABS: BASOPHILS % 0.5 % (0.0-1.0); EOSINOPHILS # (AUTO) 0.4 (0.0-0.4); EOSINOPHILS % 5.6 % (0.0-6.0); HEMATOCRIT 32.1 % (38.2-49.6); HEMOGLOBIN 10.6 g/dL (14.0-18.0); LYMPHOCYTES # (AUTO) 1.1 (1.0-3.2); LYMPHOCYTES % 15.7 % (18.0-39.1); MEAN CORPUSCULAR HEMOGLOBIN 26.8 pg (28-32); MEAN CORPUSCULAR VOLUME 81.3 fL (81-99); MONOCYTES # (AUTO) 0.5 (0.2-0.8); MONOCYTES % 6.9 % (4.4-11.3); NEUTROPHILS # (AUTO) 5.2 (2.1-6.9); PLATELET COUNT 191 x10e3/uL (140-360); RED BLOOD COUNT 3.95 x10e6/uL (4.3-5.7); RED CELL DISTRIBUTION WIDTH 17.7 % (11.7-14.4)
[2022-02-08] MEDS ORDERED: ASPIRIN 81 MG CHEW TAB PO ONE (17:00)
[2022-02-08] MEDS ORDERED: Morphine 4mg INJECTION 4 MG/ML INJ IV ONE (17:15)
[2022-02-08 17:18] LABS: ALBUMIN 3.4 g/dL (3.5-5.0); ALBUMIN/GLOBULIN RATIO 0.9 (0.8-2.0); ANION GAP 18.6 mmol/L (8-16); CALCIUM 9.2 mg/dL (8.4-10.2); CREATININE, SERUM 0.9 mg/dL (0.72-1.25); POTASSIUM 4.6 mmol/L (3.5-5.1)
[2022-02-08] MEDS: FUROSEMIDE INJ 10 MG/ML 4 ML VIAL IV SCH (17:30)
[2022-02-08 22:05] VITALS: BP_SYST 128; BP_SYST 169; BP_DIAS 61; BP_DIAS 87
[2022-02-09] VITALS (14 sets, daily range): BP systolic 144–170; BP diastolic 47–65
[2022-02-09] MEDS ORDERED: ZOLPIDEM TARTRATE 5 MG TAB PO PRN (00:45)
[2022-02-09] MEDS: Morphine 2mg Syringe 2 MG/ML SYR IV PRN ×4 (01:05→15:58)
[2022-02-09] MEDS ORDERED: AMBIEN10 MG PO (01:09)
[2022-02-09 01:35] LABS: CREATINE KINASE MB 2.1 ng/mL (0-5.0)
[2022-02-09 04:52] LABS: BASOPHILS # (AUTO) 0.1 (0.0-0.1); BASOPHILS % 0.7 % (0.0-1.0); EOSINOPHILS # (AUTO) 0.4 (0.0-0.4); EOSINOPHILS % 5.8 % (0.0-6.0); HEMATOCRIT 30.7 % (38.2-49.6); HEMOGLOBIN 9.5 g/dL (14.0-18.0); LYMPHOCYTES % 13.8 % (18.0-39.1); MEAN CORPUSCULAR HGB CONC 30.9 g/dL (31-35); MEAN CORPUSCULAR VOLUME 84.1 fL (81-99); MONOCYTES # (AUTO) 0.5 (0.2-0.8); MONOCYTES % 7.6 % (4.4-11.3); NEUTROPHILS # (AUTO) 5.1 (2.1-6.9); NEUTROPHILS % 71.8 % (38.7-80.0); PLATELET COUNT 169 x10e3/uL (140-360); RED BLOOD COUNT 3.65 x10e6/uL (4.3-5.7); RED CELL DISTRIBUTION WIDTH 17.3 % (11.7-14.4)
[2022-02-09 05:16] LABS: ALBUMIN/GLOBULIN RATIO 0.9 (0.8-2.0); ANION GAP 14.7 mmol/L (8-16); CALCIUM 8.6 mg/dL (8.4-10.2); CREATININE, SERUM 1.06 mg/dL (0.72-1.25); POTASSIUM 4.7 mmol/L (3.5-5.1)
[2022-02-09] MEDS: FUROSEMIDE INJ 10 MG/ML 4 ML VIAL IV SCH ×2 (06:15→18:14)
[2022-02-09] MEDS ORDERED: HYDRALAZINE HCL 20 MG/ML VIAL IV PRN (08:45)
[2022-02-09] MEDS ORDERED: DEXTROSE 50% SYRINGE 50 ML IV PRN (08:45)
[2022-02-09 09:14] LABS: INR 0.95; PROTHROMBIN TIME 13.6 seconds (11.9-14.5)
[2022-02-09] MEDS ORDERED: ZOLPIDEM TARTRATE 10 MG TAB PO PRN ×2 (09:30→10:15)
[2022-02-09] MEDS ORDERED: ALBUTEROL SULFATE HFA 8GM INHALATION AEROSOL INH PRN ×2 (09:30→10:15)
[2022-02-09] MEDS: CARVEDILOL 3.125 MG TAB PO SCH ×2 (09:36→18:15)
[2022-02-09] MEDS: AMLODIPINE BESYLATE 10 MG TAB PO SCH (09:37)
[2022-02-09 09:47] LABS: CREATINE KINASE MB 2.2 ng/mL (0-5.0)
[2022-02-09] MEDS: INSULIN REGULAR, HUMAN 100 UNIT/1 ML SQ SCH ×3 (12:48→21:42)
[2022-02-09 16:42] LABS: CREATINE KINASE MB 1.9 ng/mL (0-5.0)
[2022-02-09] MEDS ORDERED: CARVEDILOL 3.125 MG TAB PO SCH (17:00)
[2022-02-09] MEDS ORDERED: RIVAROXABAN 10 MG TABLET PO SCH (17:00)
[2022-02-09] MEDS ORDERED: ENOXAPARIN SODIUM INJ 100 MG/ML SYR SC ONE (17:00)
[2022-02-09] MEDS: PREGABALIN 50 MG CAP PO SCH (18:15)
[2022-02-09] MEDS: INSULIN GLARGINE 100 UNITS/ML VIAL SQ SCH (18:15)
[2022-02-09] MEDS: DULOXETINE HCL 20 MG DELAYED RELEASE PO SCH (18:16)
[2022-02-09] MEDS: Morphine 4mg INJECTION 4 MG/ML INJ IV PRN (20:25)
[2022-02-09] MEDS ORDERED: ROPINIROLE HCL 1 MG TAB PO SCH (21:00)
[2022-02-09] MEDS ORDERED: DIVALPROEX SODIUM PO SCH (21:00)
[2022-02-09] MEDS ORDERED: ATORVASTATIN 40 MG TAB PO SCH (21:00)
[2022-02-10] VITALS: BP 155/61
[2022-02-10] MEDS: Morphine 4mg INJECTION 4 MG/ML INJ IV PRN ×3 (01:41→10:21)
[2022-02-10 04:57] VITALS: BP 158/65
[2022-02-10] MEDS: FUROSEMIDE INJ 10 MG/ML 4 ML VIAL IV SCH (05:43)
[2022-02-10] MEDS: INSULIN REGULAR, HUMAN 100 UNIT/1 ML SQ SCH ×2 (07:30→11:30)
[2022-02-10] MEDS ORDERED: LISINOPRIL 2.5 MG TAB PO SCH (09:00)
[2022-02-10] MEDS ORDERED: BUPROPION HCL 150 MG TABCR PO SCH (09:00)
[2022-02-10] MEDS ORDERED: AMLODIPINE BESYLATE 10 MG TAB PO SCH (09:00)
[2022-02-10] MEDS ORDERED: TAMSULOSIN HCL 0.4 MG CAP PO SCH (09:00)
[2022-02-10] MEDS ORDERED: [UNRECOGNIZED DRUG - OTHER] INH SCH (09:00)
[2022-02-10] MEDS ORDERED: RIVAROXABAN 20 MG TABLET PO SCH (09:00)
[2022-02-10] MEDS: INSULIN GLARGINE 100 UNITS/ML VIAL SQ SCH (09:00)
[2022-02-10] MEDS ORDERED: ESCITALOPRAM OXALATE 10 MG TAB PO SCH (09:00)
[2022-02-10] MEDS ORDERED: VILANTER INH SCH (09:00)
[2022-02-10] MEDS ORDERED: FLUTICASONE INH SCH (09:00)
[2022-02-10 09:44] VITALS: BP 155/54
[2022-02-10 09:51] LABS: ANION GAP 14.5 mmol/L (8-16); CALCIUM 8.8 mg/dL (8.4-10.2); CREATININE, SERUM 1.05 mg/dL (0.72-1.25); POTASSIUM 4.5 mmol/L (3.5-5.1)
[2022-02-10] MEDS: PREGABALIN 50 MG CAP PO SCH (09:57)
[2022-02-10] MEDS: AMLODIPINE BESYLATE 10 MG TAB PO SCH (09:57)
[2022-02-10] MEDS: DULOXETINE HCL 20 MG DELAYED RELEASE PO SCH (09:58)
[2022-02-10] MEDS: CARVEDILOL 3.125 MG TAB PO SCH (09:58)
[2022-02-10 13:30] VITALS: BP 162/60
[2022-02-10] MEDS ORDERED: FUROSEMIDE INJ 10 MG/ML 4 ML VIAL IV SCH (17:30)
== END 2022-02-10 15:13 | disposition home or self-care (01) | DRG 291 ==
LOC: ER 15:55 → ERHOLD 16:56 → MED/SURG 22:07
PROVIDERS: ADMIT Family Medicine; ATTEND Family Medicine
PROC: 0W993ZZ Drainage of Right Pleural Cavity, Percutaneous Approach (ICD-10-PCS; principal; 2022-02-08)
DX: I11.0 Hypertensive heart disease with heart failure (principal); I50.33 Acute on chronic diastolic (congestive) heart failure; J44.1 Chronic obstructive pulmonary disease with (acute) exacerbation; J90 Pleural effusion, not elsewhere classified; I48.11 Longstanding persistent atrial fibrillation; Z79.01 Long term (current) use of anticoagulants; Z87.891 Personal history of nicotine dependence; R09.02 Hypoxemia; E11.9 Type 2 diabetes mellitus without complications; Z86.718 Personal history of other venous thrombosis and embolism; Z96.649 Presence of unspecified artificial hip joint; Z20.822 Contact with and (suspected) exposure to COVID-19; I25.10 Atherosclerotic heart disease of native coronary artery without angina pectoris; Z95.1 Presence of aortocoronary bypass graft; Z95.810 Presence of automatic (implantable) cardiac defibrillator
CPT/HCPCS: 0223U; 32555; 36415; 71045; 71250; 74470; 80048; 80053; 82550; 82553; 82948; 83880; 84484; 85025; 85610; 93005; 94799; 99284; J1815; J1817; J1940; J2270

== ENCOUNTER 2022-05-03 12:20 | Observation (INO) | payer MEDICARE ==
[~2022-05-03] VITALS: Ht 172.7 cm; Wt 98.4 kg
[~2022-05-03 12:20] MED LIST changes: +AMBIEN10 MG PO
[2022-05-03] MEDS ORDERED: ONDANSETRON HCL INJ 2MG/ML 2ML 2 MG/ML VIAL IV PRN (12:30)
[2022-05-03] MEDS ORDERED: ASPIRIN 325 MG TAB PO ONE (12:30)
[2022-05-03 13:02] LABS: BASOPHILS % 0.3 % (0.0-1.0); EOSINOPHILS # (AUTO) 0.3 (0.0-0.4); EOSINOPHILS % 4.1 % (0.0-6.0); HEMATOCRIT 37.2 % (38.2-49.6); HEMOGLOBIN 10.9 g/dL (14.0-18.0); LYMPHOCYTES # (AUTO) 1.1 (1.0-3.2); LYMPHOCYTES % 14.7 % (18.0-39.1); MEAN CORPUSCULAR HGB CONC 29.3 g/dL (31-35); MEAN CORPUSCULAR VOLUME 88.8 fL (81-99); MONOCYTES # (AUTO) 0.5 (0.2-0.8); MONOCYTES % 6.5 % (4.4-11.3); NEUTROPHILS # (AUTO) 5.4 (2.1-6.9); PLATELET COUNT 271 x10e3/uL (140-360); RED BLOOD COUNT 4.19 x10e6/uL (4.3-5.7); RED CELL DISTRIBUTION WIDTH 15.8 % (11.7-14.4)
[2022-05-03 13:08] LABS: INR 3.04; PROTHROMBIN TIME 33.6 seconds (11.9-14.5)
[2022-05-03 13:14] LABS: ALANINE AMINOTRANSFERASE 7 IU/L (0-55); ALBUMIN 3.2 g/dL (3.5-5.0); ALBUMIN/GLOBULIN RATIO 0.9 (0.8-2.0); ALKALINE PHOSPHATASE 50 IU/L (40-150); ANION GAP 15.9 mmol/L (8-16); BLOOD UREA NITROGEN 19 mg/dL (7-26); BUN/CREATININE RATIO 17 (6-25); CALCIUM 9.5 mg/dL (8.4-10.2); CARBON DIOXIDE 33 mmol/L (22-29); CHLORIDE 105 mmol/L (98-107); CREATININE, SERUM 1.11 mg/dL (0.72-1.25); GLUCOSE 199 mg/dL (74-118); POTASSIUM 4.9 mmol/L (3.5-5.1); SODIUM 149 mmol/L (136-145)
[2022-05-03] MEDS: FUROSEMIDE INJ 10 MG/ML 4 ML VIAL IV SCH (13:15)
[2022-05-03 15:12] VITALS: BP 125/58
[2022-05-03 15:27] VITALS: BP 125/58
[2022-05-03] MEDS ORDERED: INSULIN DETEMIR SQ (15:48)
[2022-05-03] MEDS ORDERED: HUMALOG100 UNIT/1 SQ (15:49)
[2022-05-03 16:20] VITALS: BP 125/58
[2022-05-03] MEDS ORDERED: NALOXONE HCL INJ 0.4 MG/ML AMP IV PRN (19:45)
[2022-05-03 20:05] VITALS: BP 153/57
[2022-05-03] MEDS ORDERED: IOPAMIDOL 370 MG/ML 100 ML INFUS..BTL INJ ONE (20:08)
[2022-05-03] MEDS ORDERED: MORPHINE SULFATE 1 MG/ML 30ML PCA IV PRN (20:15)
[2022-05-03] MEDS: Morphine 4mg INJECTION 4 MG/ML INJ IV PRN (20:57)
[2022-05-03 21:00] VITALS: BP 153/57
[2022-05-03] MEDS: ATORVASTATIN 40 MG TAB PO SCH (21:00)
[2022-05-03] MEDS: ROPINIROLE HCL 1 MG TAB PO SCH (21:00)
[2022-05-03 21:10] LABS: CREATINE KINASE MB 3.1 ng/mL (0-5.0)
[2022-05-03] MEDS ORDERED: MORPHINE SULFATE 1 MG/ML 30ML PCA IV SCH (22:00)
[2022-05-03] MEDS: ZOLPIDEM TARTRATE 10 MG TAB PO PRN (22:14)
[2022-05-03 22:39] LABS: CLARITY,URINE CLEAR (CLEAR); COLOR,URINE YELLOW (YELLOW); KETONES,URINE NEGATIVE (NEGATIVE); LEUKOCYTE ESTERASE ,URINE NEGATIVE (NEGATIVE); NITRITE,URINE NEGATIVE (NEGATIVE); PROTEIN,URINE DIPSTICK NEGATIVE (NEGATIVE); URINE UROBILINOGEN 0.2 mg/dL (0.2 - 1)
[2022-05-03 22:40] LABS: EPITHELIAL CELLS,URINE RARE /LPF; RBC,URINE 0-5 /HPF (0-5); WBC,URINE (MAN) 0-5 /HPF (0-5)
[2022-05-04] VITALS (7 sets, daily range): BP systolic 90–158; BP diastolic 50–65
[2022-05-04] MEDS: ALBUTEROL/IPRATROPIUM 3 ML NEB NEB SCH ×4 (00:10→19:40)
[2022-05-04] MEDS: Morphine 4mg INJECTION 4 MG/ML INJ IV PRN ×5 (00:57→21:18)
[2022-05-04] MEDS: INSULIN LISPRO 100 UNIT/1 ML 3ML VIAL SQ SCH ×3 (07:30→16:00)
[2022-05-04] MEDS: INSULIN GLARGINE 100 UNITS/ML VIAL SQ SCH ×2 (09:00→17:00)
[2022-05-04] MEDS: METHOCARBAMOL 750 MG TAB PO SCH ×2 (09:00→16:58)
[2022-05-04] MEDS: BUPROPION HCL SR 150 MG TAB PO SCH (09:00)
[2022-05-04] MEDS: AMLODIPINE BESYLATE 10 MG TAB PO SCH (09:00)
[2022-05-04] MEDS: RIVAROXABAN 20 MG TABLET PO SCH (09:00)
[2022-05-04] MEDS ORDERED: LISINOPRIL 2.5 MG TAB PO SCH (09:00)
[2022-05-04] MEDS: FENOFIBRATE 145 MG TAB PO SCH (09:00)
[2022-05-04] MEDS: FUROSEMIDE INJ 10 MG/ML 4 ML VIAL IV SCH (09:17)
[2022-05-04] MEDS: TIZANIDINE HCL 4 MG TAB PO SCH ×2 (09:18→16:59)
[2022-05-04] MEDS: PREGABALIN 50 MG CAP PO SCH ×2 (09:19→16:58)
[2022-05-04] MEDS: ESCITALOPRAM OXALATE 10 MG TAB PO SCH (09:19)
[2022-05-04] MEDS: DULOXETINE HCL 20 MG DELAYED RELEASE PO SCH ×2 (09:19→16:59)
[2022-05-04] MEDS: CARVEDILOL 3.125 MG TAB PO SCH ×2 (09:20→16:55)
[2022-05-04] MEDS: BUMETANIDE 1 MG TAB PO SCH (09:23)
[2022-05-04] MEDS: TAMSULOSIN HCL 0.4 MG CAP PO SCH ×2 (13:58→16:59)
[2022-05-04 14:24] LABS: CREATINE KINASE MB 2.9 ng/mL (0-5.0)
[2022-05-04] MEDS: ATORVASTATIN 40 MG TAB PO SCH (20:15)
[2022-05-04] MEDS: ROPINIROLE HCL 1 MG TAB PO SCH (20:15)
[2022-05-04] MEDS: ZOLPIDEM TARTRATE 10 MG TAB PO PRN (20:22)
[2022-05-05] MEDS: ALBUTEROL/IPRATROPIUM 3 ML NEB NEB SCH ×2 (00:25→06:32)
[2022-05-05 00:54] VITALS: BP 110/68
[2022-05-05] MEDS: Morphine 4mg INJECTION 4 MG/ML INJ IV PRN ×2 (03:22→07:36)
[2022-05-05 05:07] VITALS: BP 97/60
[2022-05-05 06:01] LABS: BASOPHILS % 0.5 % (0.0-1.0); EOSINOPHILS # (AUTO) 0.2 (0.0-0.4); EOSINOPHILS % 3.6 % (0.0-6.0); HEMATOCRIT 32.7 % (38.2-49.6); HEMOGLOBIN 10.1 g/dL (14.0-18.0); LYMPHOCYTES # (AUTO) 1.2 (1.0-3.2); LYMPHOCYTES % 20.6 % (18.0-39.1); MEAN CORPUSCULAR HEMOGLOBIN 25.8 pg (28-32); MEAN CORPUSCULAR HGB CONC 30.9 g/dL (31-35); MEAN CORPUSCULAR VOLUME 83.6 fL (81-99); MONOCYTES # (AUTO) 0.6 (0.2-0.8); NEUTROPHILS # (AUTO) 3.6 (2.1-6.9); NEUTROPHILS % 64.9 % (38.7-80.0); PLATELET COUNT 221 x10e3/uL (140-360); RED BLOOD COUNT 3.91 x10e6/uL (4.3-5.7); RED CELL DISTRIBUTION WIDTH 15.9 % (11.7-14.4)
[2022-05-05 06:35] LABS: ANION GAP 14.8 mmol/L (8-16); CALCIUM 8.5 mg/dL (8.4-10.2); CREATININE, SERUM 1.9 mg/dL (0.72-1.25); POTASSIUM 4.8 mmol/L (3.5-5.1)
[2022-05-05 07:56] VITALS: BP 116/57
[2022-05-05 08:08] VITALS: BP 116/57
[2022-05-05] MEDS: RIVAROXABAN 20 MG TABLET PO SCH (08:44)
[2022-05-05] MEDS: TIZANIDINE HCL 4 MG TAB PO SCH (08:45)
[2022-05-05] MEDS: DULOXETINE HCL 20 MG DELAYED RELEASE PO SCH (08:45)
[2022-05-05] MEDS: FENOFIBRATE 145 MG TAB PO SCH (08:45)
[2022-05-05] MEDS: PREGABALIN 50 MG CAP PO SCH (08:46)
[2022-05-05] MEDS: BUPROPION HCL SR 150 MG TAB PO SCH (08:46)
[2022-05-05] MEDS: ESCITALOPRAM OXALATE 10 MG TAB PO SCH (08:47)
[2022-05-05] MEDS: AMLODIPINE BESYLATE 10 MG TAB PO SCH (08:47)
[2022-05-05] MEDS: BUMETANIDE 1 MG TAB PO SCH (08:47)
[2022-05-05] MEDS: CARVEDILOL 3.125 MG TAB PO SCH (08:48)
[2022-05-05] MEDS: METHOCARBAMOL 750 MG TAB PO SCH (08:48)
[2022-05-05] MEDS: INSULIN GLARGINE 100 UNITS/ML VIAL SQ SCH (08:49)
[2022-05-05] MEDS: FUROSEMIDE INJ 10 MG/ML 4 ML VIAL IV SCH (08:49)
[2022-05-05] MEDS: INSULIN LISPRO 100 UNIT/1 ML 3ML VIAL SQ SCH (08:51)
== END 2022-05-05 10:01 | disposition home or self-care (01) ==
LOC: ER 12:22 → INTOOBSV 12:34 → ERHOLD 12:34 → MED/SURG3 15:00
PROVIDERS: ADMIT Family Medicine; ATTEND Family Medicine
DX: J90 Pleural effusion, not elsewhere classified (principal); I48.20 Chronic atrial fibrillation, unspecified; Z79.01 Long term (current) use of anticoagulants; J44.9 Chronic obstructive pulmonary disease, unspecified; Z99.81 Dependence on supplemental oxygen; I11.0 Hypertensive heart disease with heart failure; I50.9 Heart failure, unspecified; F41.9 Anxiety disorder, unspecified; F32.A Depression, unspecified; I25.2 Old myocardial infarction; I25.10 Atherosclerotic heart disease of native coronary artery without angina pectoris; R09.02 Hypoxemia; Z95.1 Presence of aortocoronary bypass graft
CPT/HCPCS: 0223U; 32555; 36415 ×3; 71045 ×2; 71260; 74470; 80048; 80053; 81001; 82550 ×2; 82553 ×2; 82948 ×2; 83880; 84484 ×2; 85025 ×2; 85610; 85730; 93005; 94640 ×3; 94799 ×3; 99284; G0378 ×3; J1815; J1940 ×3; J2270 ×3; J2405 ×2; Q9967